=== PATIENT | female | born 1960 | race Caucasian/White ===

== ENCOUNTER 2020-11-11 08:51 | Outpatient (REF) | payer BC, SELFPAY ==
--- NOTE | ~2020-11-11 | MM_ITS ---
EXAMINATION: MM SCREENING DIGITAL BREAST TOMOSYNTHESIS, BILATERAL CLINICAL INFORMATION: Screening. Asymptomatic. The lifetime risk of breast cancer based on the Tyrer-Cuzick Model is 9%. COMPARISON: Mammography: 11/06/2019, 04/23/2019, 10/22/2018, 09/30/2018; targeted left breast ultrasound 10/22/2018, 04/23/2019. TECHNIQUE: Digital breast tomosynthesis is performed in both the craniocaudal and mediolateral oblique views along with computer-aided detection (CAD). Synthesized 2D images are generated from the tomosynthesis. Additional exaggerated left CC view is provided. FINDINGS: There are scattered areas of fibroglandular density (ACR BI-RADS breast composition Category b). Parenchymal pattern is similar to prior exams. There is no significant mass or architectural abnormality or abnormal calcifications. Again, there is stable circumscribed nodule consistent with cyst on ultrasound left breast upper outer quadrant and an intramammary node again seen posterior upper outer right breast. No significant changes. MM/MM tomosynthesis screening BI IMPRESSION: No mammographic evidence of malignancy. ASSESSMENT: BI-RADS 2: Benign RECOMMENDATION: Routine annual mammography screening. This patient's information was entered into a reminder system with a target due date for their next mammogram.
== END 2020-11-11 08:52 | disposition home or self-care (01) ==
LOC: HO.MAMMO 08:51
PROVIDERS: PCP Nurse Practitioner Family; Visit Provider Nurse Practitioner Family
DX: Z12.31 Encounter for screening mammogram for malignant neoplasm of breast (principal)
CPT/HCPCS: 77063; 77067

== ENCOUNTER 2020-11-16 09:35 | Day surgery (SDC) | payer BC, SELFPAY ==
--- NOTE | 2020-11-06 13:28 | HP_ITS ---
DATE OF SERVICE: 11/16/2020 PLANNED DATE OF SURGERY: November 16, 2020. PREOPERATIVE DIAGNOSES: 1. Hammertoe, right second toe. 2. Skin ulcer, right foot. 3. Osteomyelitis distal phalanx, right second toe. 4. Hammertoe, right fourth toe. 5. Hammertoe, right fifth toe. 6. Contracted right 5th metatarsophalangeal joint. PLANNED PROCEDURES: 1. Hammertoe repair, right second toe. 2. Excision of skin ulcer, right foot. 3. Bone biopsy of distal phalanx right second toe. 4. Hammertoe repair, right fourth. 5. Hammertoe repair, right fifth. 6. Extensor tenotomy and capsulotomy of the right 5th metatarsophalangeal joint. PLANNED ANESTHESIA: MAC anesthesia. CHIEF COMPLAINT AND HISTORY OF PRESENT ILLNESS: Marilu Vick is a 60-year-old female, who relates history of chronic nonhealing ulcer on the right second toe involving probable osteomyelitis of the distal phalanx of the right second toe. She also relates progressive hammertoe deformities involving the right fourth and fifth toes. These conditions have been present over the past several years and have been unresponsive to conservative care. The patient is now requesting surgical treatment. PAST MEDICAL HISTORY: Remarkable for reflux esophagitis, GERD, peripheral neuropathy of bilateral feet, arthritis, history of gallbladder disease, history of migraine headaches. CURRENT MEDICATIONS: The patient takes atorvastatin, naproxen, Prilosec, vitamin D. FAMILY HISTORY: Significant for diabetes, arthritis, heart disease, foot problems. SOCIAL HISTORY: The patient denies smoking, denies use of any recreational drugs. The patient does drink coffee, typically 2 cups a day and does relate alcohol consumption. ALLERGIES: THE PATIENT HAS NO KNOWN ALLERGIES OR DRUG SENSITIVITIES. PODIATRIC PHYSICAL EXAM: VASCULAR EXAM: Reveals +1/4 pulses. Bilateral DP and PT arteries with normal cap refill time noted bilateral feet. DERMATOLOGIC EXAM: Reveals an ulcer at the plantar distal aspect of the right second toe measuring 2 mm in diameter x 1 mm in depth on most recent visit of November 01, 2020. NEUROLOGIC EXAM: Reveals diminished sensation of bilateral feet with poor distinguish manner of sharp, dull, light touch or vibratory sensation bilateral feet. ORTHOPEDIC EXAM: Reveals rigid hammertoe contracture of the right 2nd, 4th, and fifth toes as well as dorsal contracture of the right 5th metatarsophalangeal joint. The patient was seen most recently in my office on November 01, 2020. The patient has been instructed of all potential risks and complications and is compliant with surgical treatment for her right foot deformities. Preoperative medical clearance has been provided by Marcelo Quintanilla, [facility]. KEVIN Mayer/JAVIER / [id number]
[2020-11-08 11:25] LABS: MANUAL DIFF FLAG NO
[2020-11-08 11:32] LABS: Basophils Absolute Auto 0.1 X10*3/uL (0.0-0.2); Basophils Percent Auto 1.1 % (0-2); Eosinophils Absolute Auto 0.2 X10*3/uL (0.0-0.4); Eosinophils Percent Auto 2.4 % (0-4); Hematocrit 41.4 % (37-47); Imm Gran Abs Auto 0.02 X10*3/uL (0.00-0.03); Imm Gran Pct Auto 0.3 % (0.0-0.4); Lymphocytes Absolute Auto 2.8 X10*3/uL (1.2-4.9); Lymphocytes Percent Auto 42.1 % (20-40); Mean Corpuscular HGB Conc 33.8 g/dl (31.0-35.0); Mean Corpuscular Volume 85.7 fL (80-98); Mean Platelet Volume 9.6 fL (9.4-12.3); Monocytes Absolute Auto 0.5 X10*3/uL (0.1-1.2); Monocytes Percent Auto 7.7 % (2-11); Neutrophils Absolute Auto 3.1 X10*3/uL (2.0-8.3); Neutrophils Percent Auto 46.4 % (45-73); Platelet Count 419 X10*3/uL (160-400); Red Blood Count 4.83 X10*6/uL (4.20-5.50); Red Cell Distribution Width 12.9 % (11.0-16.0); White Blood Count 6.6 X10*3/uL (4.8-10.8)
[2020-11-08 12:06] LABS: Anion Gap 16 (12-20); Blood Urea Nitrogen 12 mg/dL (9-16); Calcium 9.5 mg/dL (8.4-10.2); Carbon Dioxide 26 mmol/L (22-29); Chloride 102 mmol/L (96-108); Estimated Glomerular Filt Rate > 60; Glucose Fasting 150 mg/dL (60-99); Potassium 4.5 mmol/L (3.3-5.1); Sodium 139 mmol/L (135-145)
[2020-11-08 17:05] LABS: Estimated Average Glucose 163 mg/dL; Hemoglobin A1c % 7.3 %
[2020-11-09 15:15] VITALS: BMI 30.4
[2020-11-16 09:54] VITALS: BP 149/95; PULSE 78; RESP 16; TEMP 36.6; O2SAT 94
--- NOTE | 2020-11-16 10:31 | MHC.SHP ---
Pre-Procedural Eval Section A The patient is an INPATIENT: No Changes since office visit: No Cold of Flu in the past 2 weeks, No New Medical Problems, No Changes in Medication and No Patient answered all questions The History & Physical has been completed within 30 days and I have reviewed it.: Yes Section B Chief Complaint: hammer toe,osteomyelitis,ulcer Allergies: Allergies Allergy/AdvReac Type Severity Reaction Status Date / Time No Known Allergies Allergy Verified 11/09/20 14:43 [No Known Allergies*] Plan Diagnosis/Plan: Unchanged I have reviewed the history and physical and performed a pertinent physical examination on my patient. No changes have occurred unless specified.
--- NOTE | 2020-11-16 10:32 | P.CONAN_ITS ---
[facility] Active Problems Active Problems: All Active Problems (Updated 11/09/20 @ 14:53 by Paola cuevas) GERD (gastroesophageal reflux disease) (Acute) Dyslipidemia (Acute) Acquired hammertoes of both feet (Acute) Peripheral neuropathy (Acute) Pre-op evaluation (Acute) Past Medical History Medical History Acquired hammertoes of both feet Anxiety Arthritis Dyslipidemia GERD (gastroesophageal reflux disease) History of cholelithiasis Hx of osteomyelitis Peripheral neuropathy Pre-op evaluation Family History Family History Father Diabetes mellitus HTN (hypertension) Myocardial infarction Hyperlipidemia Mother Lymphoma Hyperlipidemia Surgical History Surgical History History of ankle surgery History of esophagogastroduodenoscopy (EGD) History of hammertoe correction History of skin ulcer Hx of cholecystectomy Hx of colonoscopy Social History Social History Are you a primary home care liaison to a significant other at home: No Do you presently have visiting nurse or other home services: No Alcohol intake: current Alcohol intake frequency: a few times a month Smoking Status: Former smoker Smoking Quit Date: 1994 Use of substances other than those prescribed or required for medical reasons: No Have you been hit, kicked, punched, or otherwise hurt by someone within the past year? If so, by whom?: No Advance Directives: No Advance Directives Information Provided: No Advance Directives on File: No Recently lost weight without trying: No Meds Allergies Allergy/AdvReac Type Severity Reaction Status Date / Time No Known Allergies Allergy Verified 11/09/20 14:43 [No Known Allergies*] Home Medications Medication Instructions Recorded Confirmed Last Taken Type atorvastatin 10 mg tablet 10 mg PO DAILY 10/30/20 11/09/20 Unknown History cholecalciferol (vitamin D3) 50 50 mcg PO DAILY 10/30/20 11/09/20 Unknown History mcg (2,000 unit) capsule naproxen 500 mg tablet 500 mg PO BID 10/30/20 11/09/20 Unknown History Exam Exam Date and Time: November 16, 2020 1032 Height,Weight and Vital Signs: Height 5 ft 7 in Weight 87.997 kg Last Vital Signs Temp 97.8 F 11/16/20 09:54 Pulse 78 11/16/20 09:54 Resp 16 11/16/20 09:54 BP 149/95 H 11/16/20 09:54 Pulse Ox 94 11/16/20 09:54 Pertinent Lab Results Pertinent Lab Results: Laboratory Tests 11/08/20 11/08/20 11/08/20 07:51 07:51 07:51 WBC 6.6 RBC 4.83 Hgb 14.0 Hct 41.4 MCV 85.7 MCH 29.0 MCHC 33.8 RDW 12.9 Plt Count 419 H MPV 9.6 Immature Gran % (Auto) 0.3 Neut % (Auto) 46.4 Lymph % (Auto) 42.1 H Stafford % (Auto) 7.7 Eos % (Auto) 2.4 Baso % (Auto) 1.1 Lymph # (Auto) 2.8 Stafford # (Auto) 0.5 Eos # (Auto) 0.2 Baso # (Auto) 0.1 Abs Immat Gran (auto) 0.02 Absolute Neuts (auto) 3.1 Absolute Nucleated RBC 0.000 Nucleated RBC % (auto) 0.0 Sodium 139 Potassium 4.5 Chloride 102 Carbon Dioxide 26 Anion Gap 16 BUN 12 Creatinine 0.71 Estim Creat Clear Calc TNP Estimated GFR > 60 Fasting Glucose 150 H Estimat Average Glucose 163 Hemoglobin A1c % 7.3 Calcium 9.5 Airway Mallampati Class: II TM Dist: >3cm Neck ROM: Full Loose/Missing/Broken Teeth: No Heart: RRR Lungs: CTA Assessment and Plan Assessment Anesthesia Assessment: Anesthesia Plan Discussed and Chart Reviewed Final Anesthetic Review NPO: Yes ASA Class: II Final Preanesthetic Review: Meds/Allgs Chart Reviewed, Consent Obtained/Reviewed and Anes Risks/Benef Reviewed Patient Risk: Low Procedure Risk: Low Anesthetic Plan Anesthetic Plan: MAC: Disposition: Standard PACU
[2020-11-16 11:45] VITALS: BP 126/66; PULSE 71; RESP 18; TEMP 36.4; O2SAT 95
--- NOTE | 2020-11-16 11:49 | PM.PROC ---
Brief Operative Note Date of procedure: 11/16/20 Pre-op diagnosis: hammertoe deformities right 2,4 and 5; contracture right 5th mtpj; OM/ulcer Post-op diagnosis: same Procedure: hammertoe correction right 2,4 and 5th toes; extensor tenotomy and capsulotomy right 5th mtpj; excision of skin ulcer right foot; bone biopsy for osteomyelitis right 2nd toe distal and middle phalanges; complex wound closure over exposed tendon and bone right foot Anesthesia: MAC Surgeon: Igor Barnes Painter Structural Steel: Lona Canas Estimated blood loss (mL): 1.0 Condition: stable Disposition: PACU
[2020-11-16 12:00] VITALS: PULSE 71; RESP 17; TEMP 36.4; O2SAT 97
--- NOTE | 2020-11-16 12:52 | OP_ITS ---
SURGEON: Igor Barnes DPM PREOPERATIVE DIAGNOSIS: POSTOPERATIVE DIAGNOSIS: PROCEDURE PERFORMED: ESTIMATED BLOOD LOSS: COMPLICATIONS: ANESTHESIA: Consisted of local administration of a total of 9 mL of an equal mix of 2% lidocaine with epinephrine 1:100,000 and 0.5% Marcaine plain. Intravenous sedation was provided by the anesthesia department. ANESTHESIOLOGIST: Dr. Anti.Dr. Bautista. ASSISTANTS: Dr. Canas. SPECIMENS: PREOPERATIVE DIAGNOSES: 1. Hammertoe, right second toe. 2. Skin ulcer, right second toe. 3. Osteomyelitis distal phalanx, right second toe. 4. Hammertoe, right fourth toe. 5. Hammertoe, right fifth toe. 6. Contracture of the right 5th metatarsophalangeal joint. POSTOPERATIVE DIAGNOSES: 1. Hammertoe, right second toe. 2. Skin ulcer, right second toe. 3. Osteomyelitis distal phalanx, right second toe. 4. Hammertoe, right fourth toe. 5. Hammertoe, right fifth toe. 6. Contracture of the right 5th metatarsophalangeal joint. PROCEDURES PERFORMED: 1. Hammertoe repair, right second toe. 2. Excision of skin ulcer, right foot with complex wound closure overlying exposed tendon and bone. 3. Bone biopsy of osteomyelitis, right foot. 4. Hammertoe repair, right fourth toe with 0.045-inch K-wire fixation. 5. Hammertoe repair, right fifth toe. 6. Extensor tenotomy and capsulotomy of the right 5th metatarsophalangeal joint. INTRODUCTION: The patient was brought to the operating room, placed on the operating table in supine position. After having been suitably anesthetized with local infiltrative anesthesia, the right lower extremity was then prepped and draped in the usual sterile manner. Please note that prior to the start of the procedures, the right foot was exsanguinated utilizing Esmarch bandage and right ankle tourniquet was inflated to 250 mmHg pressure for the duration of the procedures. HAMMERTOE REPAIR, RIGHT SECOND TOE. Attention was directed to the dorsum of the right second toe, where a dorsal linear incision approximately 2.5 cm in length was effected and centered over the dorsum of the right second toe PIP joint. The incision was deepened in same plane and hemostasis was acquired as necessary. The skin margins were underscored and retracted. A transverse incision was effected through the extensor tendon complex at the level of the PIP joint. The extensor tendon was underscored and retracted. The hypertrophic head of the proximal phalanx was delivered from the wound and then excised utilizing sagittal saw. The wound was irrigated. The extensor tendon was caught to maintain utilizing 3-0 Vicryl. Skin margins were closed with 4-0 nylon. HAMMERTOE REPAIR, RIGHT FOURTH AND FIFTH TOES. Attention was now directed to the dorsum of the right fourth and fifth toes, where the exact same procedure was performed in the exact same manner, it was described for the right second toe with the exception that a 0.045-inch K-wire was driven through the midline of the phalanges of the 4th toe that were maintained rectus position. EXTENSOR TENOTOMIES AND DORSAL CAPSULOTOMY OF THE RIGHT 5TH METATARSOPHALANGEAL JOINT. Attention now directed to the dorsum of the right 5th metatarsophalangeal joint, where an incision approximately 2 to 2.5 cm in length was effected, centered over the dorsum of the right 5th metatarsophalangeal joint. Incision was deepened in the same plane and hemostasis was acquired as necessary. The skin margins were underscored and retracted. A transverse incision was effected through the extensor longus brevis tendons as well as the dorsal, medial, and lateral aspect of the 5th metatarsophalangeal joint. The wound was irrigated with copious amounts of sterile saline. The skin margins were then closed with 4-0 nylon. EXCISION OF SKIN ULCER ALONG WITH BONE BIOPSY AND COMPLEX WOUND CLOSURE OVERLYING EXPOSED TENDON AND BONE FOR PLANTAR AND DISTAL OF RIGHT SECOND TOE. Attention was directed to dystrophic ulcerated skin and nail tissue at the distal aspect of the right second toe, where a transverse incision was effected at the level of the distal interphalangeal joint with a converging elliptical incision placed to create a plantar skin flap and excised the dystrophic ulcerated skin entirely. The incisions were deepened in the same plane and the skin and bone were excised from the wound in toto. Please note that there was found to be pathologic changes to both the distal phalanx and head of the middle phalanx. Utilizing bone cutting forceps and also sagittal saw, the dystrophic bone was removed and then dissected free and sent for bone biopsy to pathology. The wound was irrigated with copious amounts of sterile saline. A small section more of additional middle phalanx was resected to allow proper closure of the skin flap overlying the exposed tendon and bone. The wound was irrigated. There was no thomas purulence or no thomas infection noted. The only thing that was noted was the chronic osteomyelitic changes of the middle and distal phalanges. The skin margins were then caught to maintain utilizing a combination of 3-0 nylon and 4-0 nylon with complex wound closure overlying the exposed tendon and bone. CONCLUSION: At the inclusion of these procedures, the operative sites were injected with a total of 5 mL of Marcaine 0.5% plain and 1 mL of dexamethasone phosphate. Sterile Conform and gauze and Betadine-soaked gauze dressing as well as Kerlix fluffs were applied to the right lower extremity. The tourniquet was deflated. Normal blood flow was reestablished to the right lower extremity. FINAL DISPOSITION: The patient is discharged home with instructions for self-care and include the followin. To keep the dressings dry, clean, and intact. 2. To keep the right leg elevated with ice above the ankle. 3. To take all medications as prescribed. 4. To limit activity to minimum. 5. To always use surgical shoe and walker or crutches when ambulating. 6. To contact Dr. Barnes if any questions or problems arise. 7. The patient has already prescriptions for Augmentin 500 mg 1 p.o. t.i.d. p.c., Motrin 800 mg sig 1 p.o. t.i.d. p.c. as needed for pain, and gabapentin 400 mg 1 p.o. daily at bedtime. KEVIN Mayer/JAVIER / [id number]
== END 2020-11-16 12:30 | disposition home or self-care (01) ==
PROVIDERS: Absent Provider Internal Medicine; PCP Nurse Practitioner Family; Visit Provider Podiatrist
PROC: (CPT 28285; principal; 2020-11-16 11:00)
DX: M20.41 Other hammer toe(s) (acquired), right foot (principal); L97.511 Non-pressure chronic ulcer of other part of right foot limited to breakdown of skin; M86.9 Osteomyelitis, unspecified; I10 Essential (primary) hypertension; G62.9 Polyneuropathy, unspecified; L85.9 Epidermal thickening, unspecified; M24.574 Contracture, right foot
CPT/HCPCS: 28285 ×3; 11042; 12041; 36415; 80048; 83036; 85025; 88304; 88305; 88311; J0690; J1100; J2250; J3010

== ENCOUNTER 2021-04-21 07:50 | Outpatient (REF) | payer BC, SELFPAY ==
[2021-04-21 11:24] LABS: MANUAL DIFF FLAG NO
[2021-04-21 11:35] LABS: Basophils Absolute Auto 0.1 X10*3/uL (0.0-0.2); Eosinophils Absolute Auto 0.1 X10*3/uL (0.0-0.4); Eosinophils Percent Auto 2.1 % (0-4); Hematocrit 40.3 % (37-47); Hemoglobin 13.7 g/dl (12.0-16.0); Imm Gran Abs Auto 0.01 X10*3/uL (0.00-0.03); Imm Gran Pct Auto 0.2 % (0.0-0.4); Lymphocytes Absolute Auto 2.5 X10*3/uL (1.2-4.9); Lymphocytes Percent Auto 40.2 % (20-40); Mean Corpuscular Volume 85.4 fL (80-98); Mean Platelet Volume 9.8 fL (9.4-12.3); Monocytes Absolute Auto 0.5 X10*3/uL (0.1-1.2); Monocytes Percent Auto 7.8 % (2-11); Neutrophils Percent Auto 48.7 % (45-73); Platelet Count 395 X10*3/uL (160-400); Red Blood Count 4.72 X10*6/uL (4.20-5.50); Red Cell Distribution Width 12.7 % (11.0-16.0); White Blood Count 6.2 X10*3/uL (4.8-10.8)
[2021-04-21 11:39] LABS: Glucose Urine UA NEG (NEG); Leukocyte Esterase Urine TRACE (NEG); Nitrite Urine NEG (NEG); UACC Culture Trigger YES; Urine Blood NEG (NEG); Urine Ketones NEG (NEG); Urine Protein NEG (NEG-TRACE)
[2021-04-21 11:44] LABS: Appearance Urine CLEAR; Color Urine YELLOW
[2021-04-21 12:06] LABS: Bacteria Urine TRACE /LPF; RBC Urine 0-2 /HPF (0); Squamous Epithelial Cell Urine 2+ /LPF
[2021-04-21 12:07] LABS: Mucus Urine TRACE /LPF
[2021-04-21 12:09] LABS: Alanine Aminotransferase 66 U/L (0-31); Albumin Level 4.4 g/dL (3.5-5.0); Alkaline Phosphatase 78 U/L (39-117); Anion Gap 17 (12-20); Aspartate Amino Transferase 45 U/L (5-31); Bilirubin Total 0.9 mg/dL (0.0-1.0); Blood Urea Nitrogen 12 mg/dL (9-16); Carbon Dioxide 24 mmol/L (22-29); Chloride 103 mmol/L (96-108); Cholesterol 163 mg/dL; Estimated Glomerular Filt Rate > 60; Glucose Fasting 169 mg/dL (60-99); HDL Cholesterol 35 mg/dL; LDL Cholesterol Calculated 90 mg/dl; Potassium 4.6 mmol/L (3.3-5.1); Sodium 139 mmol/L (135-145); Total Protein 7.7 g/dL (6.5-8.0); Triglycerides 193 mg/dL
[2021-04-21 12:32] LABS: TSH reflex Free T4 2.09 uIU/mL (0.32-4.0)
== END 2021-04-21 07:51 | disposition home or self-care (01) ==
LOC: HO.HMGCLDS 07:50
PROVIDERS: PCP Nurse Practitioner Family; Visit Provider Nurse Practitioner Family
DX: Z00.00 Encounter for general adult medical examination without abnormal findings (principal)
CPT/HCPCS: 36415; 80053; 80061; 81001; 84443; 85025; 87086

== ENCOUNTER 2021-05-03 08:31 | Outpatient (REF) | payer BC, SELFPAY ==
--- NOTE | ~2021-05-03 | US_ITS ---
EXAMINATION: US ABDOMEN COMPLETE CLINICAL INFORMATION: Abnormal levels of other serum enzymes. COMPARISON: CT abdomen and pelvis with intravenous contrast only dated 02/09/2017. Ultrasound abdomen complete dated 10/16/2006. TECHNIQUE: Real-time imaging of the abdominal viscera. FINDINGS: PANCREAS: Largely obscured by overlapping bowel gas. ABDOMINAL AORTA: The proximal, mid, and distal segments are normal in caliber. INFERIOR VENA CAVA: Visualized portions are normal. LIVER: There is diffuse increased liver parenchymal echogenicity. No focal hepatic mass is seen. The liver is normal in size and contour. No biliary ductal dilatation. GALLBLADDER: Surgically absent. COMMON BILE DUCT: Normal in caliber measuring 0.5 cm in diameter. RIGHT KIDNEY: Normal. No hydronephrosis. No renal calculi or focal parenchymal lesions. The kidney measures 11.7 cm in maximum dimension. LEFT KIDNEY: Normal. No hydronephrosis. No renal calculi or focal parenchymal lesions. The kidney measures 11.1 cm in maximum dimension. SPLEEN: Normal. The spleen measures 10.6 cm in maximum dimension. FREE FLUID: None. US/US abdomen complete IMPRESSION: 1. There is generalized increase in hepatic echotexture, consistent with fatty infiltration or hepatocellular disease. Please correlate clinically. No focal hepatic mass or intrahepatic biliary dilatation is seen. 2. The gallbladder is surgically absent. 3. Technically limited ultrasound examination of the pancreas.
== END 2021-05-03 08:32 | disposition home or self-care (01) ==
LOC: HO.HMGCX 08:31
PROVIDERS: PCP Nurse Practitioner Family; Visit Provider Nurse Practitioner Family
DX: R74.8 Abnormal levels of other serum enzymes (principal)
CPT/HCPCS: 76700

== ENCOUNTER 2021-05-12 07:21 | Outpatient (REF) | payer BC, SELFPAY ==
[2021-05-12 11:01] LABS: MANUAL DIFF FLAG NO
[2021-05-12 11:08] LABS: Basophils Absolute Auto 0.1 X10*3/uL (0.0-0.2); Basophils Percent Auto 0.8 % (0-2); Eosinophils Absolute Auto 0.3 X10*3/uL (0.0-0.4); Eosinophils Percent Auto 3.5 % (0-4); Hematocrit 43.2 % (37-47); Hemoglobin 14.3 g/dl (12.0-16.0); Imm Gran Abs Auto 0.02 X10*3/uL (0.00-0.03); Imm Gran Pct Auto 0.3 % (0.0-0.4); Lymphocytes Absolute Auto 1.3 X10*3/uL (1.2-4.9); Lymphocytes Percent Auto 16.8 % (20-40); Mean Corpuscular HGB Conc 33.1 g/dl (31.0-35.0); Mean Corpuscular Hemoglobin 28.4 pg (27.0-33.0); Mean Corpuscular Volume 85.7 fL (80-98); Mean Platelet Volume 9.5 fL (9.4-12.3); Monocytes Absolute Auto 0.7 X10*3/uL (0.1-1.2); Monocytes Percent Auto 8.8 % (2-11); Neutrophils Absolute Auto 5.4 X10*3/uL (2.0-8.3); Neutrophils Percent Auto 69.8 % (45-73); Platelet Count 345 X10*3/uL (160-400); Red Blood Count 5.04 X10*6/uL (4.20-5.50); Red Cell Distribution Width 12.7 % (11.0-16.0); White Blood Count 7.7 X10*3/uL (4.8-10.8)
[2021-05-12 11:12] LABS: Glucose Urine UA NEG (NEG); Leukocyte Esterase Urine 1+ (NEG); Nitrite Urine NEG (NEG); PH 5.5 (5.0-8.0); Specific Gravity - Urine >= 1.030 (1.005-1.025); UACC Culture Trigger YES; Urine Blood NEG (NEG); Urine Ketones NEG (NEG); Urine Protein NEG (NEG-TRACE)
[2021-05-12 11:14] LABS: Estimated Average Glucose 166 mg/dL; Hemoglobin A1c % 7.4 %
[2021-05-12 11:15] LABS: Appearance Urine CLOUDY; Color Urine YELLOW
[2021-05-12 11:25] LABS: Bacteria Urine TRACE /LPF; Mucus Urine 1+ /LPF; Squamous Epithelial Cell Urine 4+ /LPF
[2021-05-12 11:27] LABS: Alanine Aminotransferase 46 U/L (0-31); Albumin Level 4.3 g/dL (3.5-5.0); Alkaline Phosphatase 86 U/L (39-117); Anion Gap 17 (12-20); Aspartate Amino Transferase 36 U/L (5-31); Bilirubin Total 0.6 mg/dL (0.0-1.0); Blood Urea Nitrogen 9 mg/dL (9-16); Calcium 9.3 mg/dL (8.4-10.2); Carbon Dioxide 20 mmol/L (22-29); Chloride 107 mmol/L (96-108); Estimated Glomerular Filt Rate > 60; Glucose Random 186 mg/dL (60-115); Potassium 4.5 mmol/L (3.3-5.1); Sodium 139 mmol/L (135-145); Total Protein 7.8 g/dL (6.5-8.0)
[2021-05-14 07:49] LABS: HBS Num1 0.07 mIU/mL (0-7.99); HBsAGNum1 0.22 S/CO (0.00-0.99); Hepatitis B Core Antibody Nonreactive (Nonreactive); Hepatitis B Surface Antigen Negative (Negative); ~HepC Num1 0.11 S/CO (0.00-0.79); ~Hepatitis B Surface Antibody NONREACTIVE (Nonreactive); ~Hepatitis C Antibody Nonreactive (Nonreactive)
[2021-05-16 08:37] LABS: Hepatitis A Antibody IgM 0.21 Index (0-0.79); ~Hepatitis A Antibody IgM Nonreactive (Nonreactive)
== END 2021-05-12 07:22 | disposition home or self-care (01) ==
LOC: HO.HMGCLDS 07:21
PROVIDERS: PCP Nurse Practitioner Family; Visit Provider Nurse Practitioner Family
DX: Z01.818 Encounter for other preprocedural examination (principal); R74.8 Abnormal levels of other serum enzymes
CPT/HCPCS: 36415; 80053; 81001; 83036; 85025; 86704; 86706; 86709; 86803; 87086; 87340

== ENCOUNTER 2021-06-28 06:40 | Day surgery (SDC) | payer BC, SELFPAY ==
--- NOTE | 2021-05-09 13:56 | HP_ITS ---
DATE OF SERVICE: 05/17/2021 DATE OF PROPOSED SURGERY: May 17, 2021. PREOPERATIVE DIAGNOSES: 1. Hammertoe, left fourth toe. 2. Hammertoe, left fifth toe. 3. Chronic nonhealing skin ulcer, left fourth toe. 4. Osteomyelitis of distal phalanx, left fourth toe. 5. Contracture of the left fifth metatarsophalangeal joint. PLANNED PROCEDURES: 1. Hammertoe repair, left fourth toe. 2. Hammertoe repair, left fifth toe. 3. Excision of skin ulcer, left fourth toe. 4. Bone biopsy, left fourth toe distal phalanx. 5. Extensor tenotomy and capsulotomy, left fifth metatarsophalangeal joint. PLANNED ANESTHESIA: MAC anesthesia. CHIEF COMPLAINT AND HISTORY OF PRESENT ILLNESS: Marilu Vick is a 60-year-old female, relating history of achy, stiff, tender, painful left fourth and fifth toes, present over the past several months duration. She also has a chronic nonhealing skin ulcer of the left fourth toe, which has been present over the past few years. Her condition has progressively worsened. Conservative treatments consisting of altered shoe gear, wound care, periodic antibiotics as well as accommodative padding have all proven ineffective and the patient is now requesting surgical treatment. PAST MEDICAL HISTORY: Remarkable for high cholesterol, history of GERD, and peripheral neuropathy of both feet, as well as history of migraine headaches, arthritis. CURRENT MEDICATIONS: The patient takes alpha lipoic acid, Prilosec 20 mg, and vitamin D3. ALLERGIES: THE PATIENT HAS NO KNOWN ALLERGIES OR DRUG SENSITIVITIES. FAMILY HISTORY: Significant for diabetes, hypertension, heart disease, arthritis. SOCIAL HISTORY: The patient denies smoking, denies use of caffeine, denies use of any recreational drugs, and relates social alcohol consumption. PODIATRIC PHYSICAL EXAM: VASCULAR EXAM: Reveals +1/4 pulses, DP and PT arteries bilateral with normal capillary refill time noted in bilateral feet. DERMATOLOGIC EXAM: Reveals an ulcer through the subcutaneous into the fat layer of the plantar aspect of the left fourth toe, measuring 9 mm x 4 mm x 2 mm in depth. Otherwise, the skin is intact in bilateral feet. NEUROLOGIC EXAM: Reveals diminished sensation of bilateral feet. ORTHOPEDIC EXAM: Reveals rigid hammertoe contracture of the left fourth and fifth toes. The patient was seen most recently in my office on May 07, 2021. Preoperative informed consent was obtained from the patient that day for her planned left foot surgery. Preoperative medical clearance will be provided by her primary care, Marcelo Quintanilla at [facility]. KEVIN Mayer/JAVIER / [id number]
[2021-05-11 12:52] VITALS: BMI 31.9
[2021-05-11 12:54] VITALS: BMI 31.9
--- NOTE | 2021-05-16 12:35 | HO.ANESPROP2 ---
HPI - Anesthesia Eval Consult details Narrative: Rescheduled to 06/28/21 60yo F for Left 4th & 5th Toe Hammertoe Repair, Excision of 4th toe Skin Ulcer, 4th Toe Bone Biopsy, Extensor Tenotomy & Capsulotomy 5th Metatarsal Joint PCP cleared s/p hammertoe repair 11/2020 with MAC [facility] Active Problems Active Problems: All Active Problems (Updated 05/11/21 @ 12:58 by Daily Guzman RN) Pre-op evaluation (Acute) Elevated liver enzymes (Acute) Newly diagnosed diabetes (Acute) GERD (gastroesophageal reflux disease) (Acute) Dyslipidemia (Acute) Acquired hammertoes of both feet (Acute) Peripheral neuropathy (Acute) Past Medical History Medical History (Updated 05/11/21 @ 12:58 by Daily Guzman RN) Acquired hammertoes of both feet Anxiety Arthritis COVID-19 vaccine series completed Diabetes Dyslipidemia GERD (gastroesophageal reflux disease) History of cholelithiasis Hx of osteomyelitis Peripheral neuropathy Family History Family History Father Diabetes mellitus HTN (hypertension) Myocardial infarction Hyperlipidemia Mother Lymphoma Hyperlipidemia Surgical History Surgical History (Updated 05/11/21 @ 12:52 by Daily Guzman RN) History of ankle surgery History of esophagogastroduodenoscopy (EGD) History of hammertoe correction History of skin ulcer Hx of cholecystectomy Hx of colonoscopy Hx of foot surgery Social History Social History (Updated 05/11/21 @ 12:29 by Daily Guzman RN) Household Members: [facility] Are you a primary medicare biller to a significant other at home: No Do you presently have visiting nurse or other home services: No Alcohol intake: current Alcohol intake frequency: a few times a month Patient Tobacco Use Status: Former Tobacco user Quit Date: 1994 Tobacco use type: Cigarette Advance Directives Date on File: 02/10/17 Current occupational status: employed Current occupation: [employer] Current occupational exposures/hazards: No Meds Allergies Allergy/AdvReac Type Severity Reaction Status Date / Time No Known Allergies Allergy Verified 05/08/21 11:46 [No Known Allergies*] Home Medications Medication Instructions Recorded Confirmed Last Taken Type cholecalciferol (vitamin D3) 50 50 mcg PO DAILY 10/30/20 05/11/21 Unknown History mcg (2,000 unit) capsule naproxen 500 mg tablet 500 mg PO BID PRN 10/30/20 05/11/21 Unknown History gabapentin 400 mg capsule 400 mg PO BEDTIME 05/11/21 05/11/21 Unknown History Exam Exam Date and Time: May 16, 2021 1235 Height,Weight and Vital Signs: Height 5 ft 7 in Weight 92.533 kg Pertinent Lab Results Pertinent Lab Results: Laboratory Tests 05/12/21 05/12/21 07:30 07:30 WBC 7.7 Hgb 14.3 Hct 43.2 Plt Count 345 Sodium 139 Potassium 4.5 Chloride 107 Carbon Dioxide 20 L BUN 9 Creatinine 0.72 Narrative Narrative: EKG 04/2021 NSR @ 78 Septal infarct Inferior infarct No changes from 2 previous EKG Assessment and Plan Assessment Anesthesia Assessment: Chart Reviewed
--- NOTE | 2021-06-19 13:34 | HP_ITS ---
DATE OF SERVICE: 06/28/2021 DATE OF PROPOSED SURGERY: June 28, 2021. PREOPERATIVE DIAGNOSES: 1. Hammertoe, left 4th toe. 2. Hammertoe, left 5th toe. 3. Chronic skin ulcer, left 4th toe. 4. Osteomyelitis of distal phalanx, left fourth toe. 5. Extensor contracture of the left 5th metatarsophalangeal joint. PLANNED PROCEDURES: 1. Hammertoe repair, left fourth toe. 2. Hammertoe repair, left 5th toe. 3. Excision of skin ulcer, left fourth toe. 4. Bone biopsy, left fourth toe distal phalanx. 5. Extensor tenotomy and capsulotomy of left 5th metatarsophalangeal joint. PLANNED ANESTHESIA: MAC anesthesia. CHIEF COMPLAINT AND HISTORY OF PRESENT ILLNESS: Marilu Vick is a 60-year-old female, who relates history of painful arthritic hammertoes of left fourth and fifth toe with contracture of left 5th toe metatarsophalangeal joint and chronic nonhealing skin ulcer at the plantar aspect of the left 4th toe involving the distal phalanx. Conservative care consisting of altered shoe gear as well as accommodative padding and wound care has been ineffective in healing the condition and the patient is now requesting surgical treatment. PAST MEDICAL HISTORY: Remarkable for anxiety, arthritis, diabetes, GERD, peripheral neuropathy, migraine headaches. CURRENT MEDICATIONS: , doxycycline, lisinopril, Prilosec, gabapentin. ALLERGIES: THE PATIENT HAS NO KNOWN ALLERGIES OR DRUG SENSITIVITIES. FAMILY HISTORY: Significant for arthritis, diabetes, hypertension, heart disease. SOCIAL HISTORY: The patient denies smoking, denies alcohol, denies use of caffeine, and denies use of any recreational drugs. PODIATRIC PHYSICAL EXAMINATION: VASCULAR EXAM: The patient displays +1/4 pulses. DP and PT arteries bilateral with normal capillary refill time noted bilateral feet. DERMATOLOGIC: Reveals a skin ulcer plantar aspect of the left 4th toe measuring 2 mm in diameter x 1 mm in depth. NEUROLOGIC EXAM: Reveals reduced reduced vibratory sensation and monofilament testing bilateral feet. ORTHOPEDIC EXAM: Reveals rigid hammertoe contracture of left fourth and fifth toes and also dorsal contracture of the left 5th metatarsophalangeal joint. The patient was seen most recently in my office on June 06, 2021. Preoperative informed consent was obtained from the patient that day for the planned left foot surgery. Preoperative medical clearance has been provided by the patient's primary care physician, Marcelo Quintanilla. KEVIN Mayer / [id number]
--- NOTE | 2021-06-27 09:20 | HO.ANESPROP2 ---
Documented by User: Caitlin Alvarez NP 06/27/21 09:22 HPI - Anesthesia Eval Consult details Narrative: 60yo F for Left 4th & 5th Toe Hammertoe Repair, Excision of 4th toe Skin Ulcer, 4th Toe Bone Biopsy, Extensor Tenotomy & Capsulotomy 5th Metatarsal Joint s/p Right side 11/2020 with MAC PCP cleared PMFSH Active Problems Active Problems: All Active Problems (Updated 05/11/21 @ 12:58 by Daily Guzman RN) Pre-op evaluation (Acute) Elevated liver enzymes (Acute) Newly diagnosed diabetes (Acute) GERD (gastroesophageal reflux disease) (Acute) Dyslipidemia (Acute) Acquired hammertoes of both feet (Acute) Peripheral neuropathy (Acute) Past Medical History Medical History Acquired hammertoes of both feet Anxiety Arthritis COVID-19 vaccine series completed Diabetes Dyslipidemia GERD (gastroesophageal reflux disease) History of cholelithiasis Hx of osteomyelitis Peripheral neuropathy Family History Family History Father Diabetes mellitus HTN (hypertension) Myocardial infarction Hyperlipidemia Mother Lymphoma Hyperlipidemia Surgical History Surgical History History of ankle surgery History of esophagogastroduodenoscopy (EGD) History of hammertoe correction History of skin ulcer Hx of cholecystectomy Hx of colonoscopy Hx of foot surgery Social History Social History Household Members: [facility] Are you a primary menagerie caretaker to a significant other at home: No Do you presently have visiting nurse or other home services: No Alcohol intake: current Alcohol intake frequency: a few times a month Patient Tobacco Use Status: Former Tobacco user Quit Date: 1994 Tobacco use type: Cigarette Use of substances other than those prescribed or required for medical reasons: No Have you been hit, kicked, punched, or otherwise hurt by someone within the past year? If so, by whom?: No Are you DNR?: No Advance Directives: Yes (daughter-HCP form 01/2017 in [employer] printed) Advance Directives Information Provided: Yes Advance Directives on File: Yes Advance Directives Date on File: 02/10/17 Recently lost weight without trying: No Eating poorly because of decreased appetite: No Nutrition Risks: No Nutritional Risk Current occupational status: employed Current occupation: [employer] Current occupational exposures/hazards: No Meds Allergies Allergy/AdvReac Type Severity Reaction Status Date / Time No Known Allergies Allergy Verified 06/28/21 06:44 [No Known Allergies*] Home Medications Medication Instructions Recorded Confirmed Last Taken Type cholecalciferol (vitamin D3) 50 50 mcg PO DAILY 10/30/20 05/11/21 Unknown History mcg (2,000 unit) capsule naproxen 500 mg tablet 500 mg PO BID PRN 10/30/20 05/11/21 Unknown History gabapentin 400 mg capsule 400 mg PO BEDTIME 05/11/21 05/11/21 Unknown History Exam Exam Date and Time: June 27, 202120 Height,Weight and Vital Signs: Height 5 ft 7 in Weight 92.533 kg Pertinent Lab Results Pertinent Lab Results: Laboratory Tests 05/12/21 05/12/21 07:30 07:30 WBC 7.7 Hgb 14.3 Hct 43.2 Plt Count 345 Sodium 139 Potassium 4.5 Chloride 107 Carbon Dioxide 20 L BUN 9 Creatinine 0.72 Assessment and Plan Assessment Anesthesia Assessment: Chart Reviewed Documented by User: Louann Dorado MD 06/28/21 07:29 [facility] Past Medical History Medical History Acquired hammertoes of both feet Anxiety Arthritis COVID-19 vaccine series completed Diabetes Dyslipidemia GERD (gastroesophageal reflux disease) History of cholelithiasis Hx of osteomyelitis Peripheral neuropathy Functional capacity: independent ambulation Patient : No Family History Family History Father Diabetes mellitus HTN (hypertension) Myocardial infarction Hyperlipidemia Mother Lymphoma Hyperlipidemia Family history of problems with anesthesia: No Surgical History Surgical History History of ankle surgery History of esophagogastroduodenoscopy (EGD) History of hammertoe correction History of skin ulcer Hx of cholecystectomy Hx of colonoscopy Hx of foot surgery History of Problems with Anesthesia: No Social History Social History Household Members: Spouse [facility]: [facility] Are you a primary menagerie caretaker to a significant other at home: No Do you presently have visiting nurse or other home services: No Alcohol intake: current Alcohol intake frequency: a few times a month Patient Tobacco Use Status: Former Tobacco user Quit Date: 1994 Tobacco use type: Cigarette Use of substances other than those prescribed or required for medical reasons: No Have you been hit, kicked, punched, or otherwise hurt by someone within the past year? If so, by whom?: No Are you DNR?: No Advance Directives: Yes (daughter-HCP form 01/2017 in [employer] printed) Advance Directives Information Provided: Yes Advance Directives on File: Yes Advance Directives Date on File: 02/10/17 Recently lost weight without trying: No Eating poorly because of decreased appetite: No Nutrition Risks: No Nutritional Risk Current occupational status: employed Current occupation: [employer] Current occupational exposures/hazards: No Meds Allergies Allergy/AdvReac Type Severity Reaction Status Date / Time No Known Allergies Allergy Verified 06/28/21 06:44 [No Known Allergies*] Home Medications Medication Instructions Recorded Confirmed Last Taken Type cholecalciferol (vitamin D3) 50 50 mcg PO DAILY 10/30/20 05/11/21 Unknown History mcg (2,000 unit) capsule naproxen 500 mg tablet 500 mg PO BID PRN 10/30/20 05/11/21 Unknown History gabapentin 400 mg capsule 400 mg PO BEDTIME 05/11/21 05/11/21 Unknown History Exam Airway TM Dist: >3cm Neck ROM: Full Heart: RRar Lungs: CTA Assessment and Plan Final Anesthetic Review Family History of Problems with Anesthesia: No History of Problems with Anesthesia: No
[2021-06-28 06:58] LABS: Glucose, Whole Blood 147 mg/dL (60-115)
[2021-06-28 06:59] VITALS: BP 124/74; PULSE 74; RESP 16; TEMP 36.2; O2SAT 96
[2021-06-28] MEDS: Lactated Ringers 1,000 ML 100 ML IVCONT (07:18)
--- NOTE | 2021-06-28 07:31 | MHC.SHP ---
Pre-Procedural Eval Section A Date of Service: 06/28/21 Section B Chief Complaint: Hammer toes Details of Present Illness: pain and non-helaing ulcer and bone infection left toes Relevant Family History (Specify if Yes): No Relevant Social History: None Allergies: Allergies Allergy/AdvReac Type Severity Reaction Status Date / Time No Known Allergies Allergy Verified 06/28/21 06:44 [No Known Allergies*] Plan Diagnosis/Plan: Unchanged I have reviewed the history and physical and performed a pertinent physical examination on my patient. No changes have occurred unless specified.
--- NOTE | 2021-06-28 08:23 | PM.PROC ---
Brief Operative Note Date of procedure: 06/28/21 Pre-op diagnosis: hammertoe left 4,5; contracture left 5th mtpj, OM left 4 toe, ulcer left 4 Post-op diagnosis: same Procedure: hammertoe repair left 4,5th toes; excision of skin ulcer left 4th; bone biopsy left 4th toe distal phalanx; extensor tenotomy and capsulotomy left 5th mtpj Anesthesia: MAC Surgeon: Igor Barnes Chief Dispatcher Service: Lona Canas Estimated blood loss (mL): 1.0 Condition: stable Disposition: PACU
[2021-06-28 08:30] VITALS: BP 91/52; PULSE 84; RESP 16; TEMP 36.5; O2SAT 94
[2021-06-28 08:35] VITALS: BP 95/54; PULSE 77; RESP 16; O2SAT 95
[2021-06-28 08:40] VITALS: BP 101/52; PULSE 74; RESP 16; O2SAT 94
[2021-06-28 08:45] VITALS: BP 108/59; PULSE 74; RESP 18; O2SAT 92
[2021-06-28 09:00] VITALS: BP 115/64; PULSE 70; RESP 18; TEMP 36.4; O2SAT 94
--- NOTE | 2021-06-28 09:36 | HO.POSTANES ---
Post Anesthesia Evaluation Post Anesthesia Evaluation Vital Signs: Vital Signs Temp Pulse Resp BP Pulse Ox 06/28/21 09:00 97.6 F 70 18 115/64 94 06/28/21 08:45 74 18 108/59 L 92 06/28/21 08:40 74 16 101/52 L 94 06/28/21 08:35 77 16 95/54 L 95 06/28/21 08:30 97.7 F 84 16 91/52 L 94 06/28/21 06:59 97.2 F 74 16 124/74 96 Anesthesia: Monitored Mental Status: Awake Pain Control: Satisfactory Hydration: Adequate Anesthesia-Related Issues: No Anes. Related Issues
--- NOTE | 2021-06-28 10:15 | OP_ITS ---
SURGEON: Igor Barnes DPM PREOPERATIVE DIAGNOSIS: POSTOPERATIVE DIAGNOSIS: PROCEDURE PERFORMED: ESTIMATED BLOOD LOSS: COMPLICATIONS: ANESTHESIA: Consisted of local administration of a total of 8 mL of an equal mix of 2% lidocaine with epinephrine 1:100,000 and 0.5% Marcaine plain. Intravenous sedation was provided by the anesthesia department. ASSISTANTS: Dr. Canas. SPECIMENS: PREOPERATIVE DIAGNOSES: 1. Hammertoe, left fourth toe. 2. Hammertoe, left fifth toe. 3. Chronic skin ulcer, distal left fourth toe. 4. Osteomyelitis of the distal phalanx, left fourth toe. 5. Contracture of the left fifth metatarsophalangeal joint. POSTOPERATIVE DIAGNOSES: 1. Hammertoe, left fourth toe. 2. Hammertoe, left fifth toe. 3. Chronic skin ulcer, distal left fourth toe. 4. Osteomyelitis of the distal phalanx, left fourth toe. 5. Contracture of the left fifth metatarsophalangeal joint. PROCEDURES PERFORMED: 1. Hammertoe repair, left fourth toe. 2. Hammertoe repair, left fifth toe. 3. Excision of skin ulcer, left fourth toe measuring 2.1 cm in diameter. 4. Bone biopsy, left fourth toe distal phalanx. 5. Extensor tenotomy and capsulotomy of left fifth metatarsophalangeal joint. INTRODUCTION: The patient was brought to the operating room, placed on the operative table in the supine position. After having been suitably anesthetized with local infiltrative anesthesia, the left lower extremity was then prepped and draped in the usual sterile manner. Please note that prior to start of the procedure, the left foot was exsanguinated utilizing Esmarch bandage and left ankle tourniquet was inflated to 200 mmHg pressure for the duration of the procedures. HAMMERTOE REPAIR, LEFT FOURTH AND FIFTH TOES. Attention was directed to the dorsum of left fourth and fifth toe, where incision was approximately 2 cm length were effected, centered over the dorsum of the left fourth and fifth toe PIP joints. Incision was deepened in same plane. Hemostasis was acquired. Skin margins were underscored and retracted. A transverse incision was effected through the extensor tendon complex at the level of the proximal interphalangeal joint and extensor tendon was underscored and retracted. The hypertrophic head of the fourth and fifth toe proximal phalanges were then resected utilizing a sagittal saw. The wound was irrigated. The extensor tendon was closed with 3-0 Dexon. Skin margins were closed with 4-0 nylon. EXTENSOR TENOTOMY AND CAPSULOTOMY OF LEFT FIFTH METATARSOPHALANGEAL JOINT. Attention was now directed to the dorsal left fifth metatarsophalangeal joint, where the separate incision approximately 2 cm in length was effected, centered over the dorsum of the left fifth metatarsophalangeal joint. Skin margins were underscored and retracted. A dorsal extensor longus brevis tenotomy was performed. Sharp dissection as well as dorsal medial and lateral capsulotomy. Skin margins were closed with 4-0 nylon. EXCISION OF SKIN ULCER DISTAL LEFT FOURTH TOE. Attention was now directed to the distal aspect of the left fourth toe, where a transverse linear incision was effected at the level of the distal interphalangeal joint and converging semi-elliptical incision was effected distally to excise the ulcer as well as dystrophic nail entirely. The incisions were carried down to bone and the ellipse of skin as well as the distal phalanx was excised. Bone biopsy was taken of the distal aspect of the distal phalanx and sent to Pathology for evaluation of chronic osteomyelitis. The wound was irrigated with copious amounts of sterile saline. Skin margins were closed with 3-0 nylon. CONCLUSION: At the conclusion of these procedures, the operative sites were dressed with sterile Xeroform, 1-inch Conform, Betadine-soaked gauze, 4-inch Conform. The patient tolerated the surgery and anesthesia well and left the operating room via cart to the recovery room with vital signs stable. FINAL DISPOSITION: The patient is discharged home with instructions for self-care and include the followin. To keep the dressings dry, clean, and intact. 2. To keep the left leg elevated with ice above the ankle. 3. To take all medications as prescribed. 4. To limit activity to minimum. 5. To always use surgical shoe and crutches when ambulating. 6. To contact Dr. Barnes if any questions or problems arise. 7. The patient already has prescriptions at home for ibuprofen 800 mg, total #90 one p.o. t.i.d. p.c.; prescription for gabapentin 400 mg, total #10 one p.o. daily at bedtime, and lastly 1 pill daily. KEVIN Mayer/ILYAL / [phone]
--- NOTE | 2021-06-28 10:47 | HO.POSTANES ---
Post Anesthesia Evaluation Post Anesthesia Evaluation Vital Signs: Vital Signs Temp Pulse Resp BP Pulse Ox 06/28/21 09:00 97.6 F 70 18 115/64 94 06/28/21 08:45 74 18 108/59 L 92 06/28/21 08:40 74 16 101/52 L 94 06/28/21 08:35 77 16 95/54 L 95 06/28/21 08:30 97.7 F 84 16 91/52 L 94 06/28/21 06:59 97.2 F 74 16 124/74 96 Anesthesia: Monitored Mental Status: Awake Pain Control: Satisfactory Nausea/Vomiting: None and Mild Hydration: Adequate Anesthesia-Related Issues: No Anes. Related Issues
== END 2021-06-28 09:37 | disposition home or self-care (01) ==
PROVIDERS: PCP Nurse Practitioner Family; Visit Provider Podiatrist
PROC: (CPT 28285; principal; 2021-06-28 07:30)
DX: M20.42 Other hammer toe(s) (acquired), left foot (principal); M24.575 Contracture, left foot; M86.172 Other acute osteomyelitis, left ankle and foot; L97.529 Non-pressure chronic ulcer of other part of left foot with unspecified severity; I10 Essential (primary) hypertension; E11.9 Type 2 diabetes mellitus without complications; G62.9 Polyneuropathy, unspecified; Z79.899 Other long term (current) drug therapy; Z87.891 Personal history of nicotine dependence
CPT/HCPCS: 28285 ×2; 28270; 82947; 88304; 88305; 88311; J0690; J1100; J2250; J3010

== ENCOUNTER 2021-11-10 08:40 | Outpatient (REF) | payer BC, SELFPAY ==
[2021-11-10 11:32] LABS: Appearance Urine CLEAR; Color Urine YELLOW; Glucose Urine UA NEG (NEG); Leukocyte Esterase Urine 2+ (NEG); Nitrite Urine NEG (NEG); Specific Gravity - Urine >= 1.030 (1.005-1.025); UACC Culture Trigger YES; Urine Blood NEG (NEG); Urine Ketones NEG (NEG); Urine Protein TRACE MG/DL (NEG-TRACE)
[2021-11-10 11:46] LABS: Bacteria Urine TRACE /LPF; Mucus Urine 1+ /LPF; RBC Urine 0-2 /HPF (0); Squamous Epithelial Cell Urine 1+ /LPF
[2021-11-10 15:50] LABS: Estimated Average Glucose 177 mg/dL; Hemoglobin A1c % 7.8 %
== END 2021-11-10 08:41 | disposition home or self-care (01) ==
LOC: HO.HMGCLDS 08:40
PROVIDERS: PCP Nurse Practitioner Family; Visit Provider Nurse Practitioner Family
DX: E11.9 Type 2 diabetes mellitus without complications (principal)
CPT/HCPCS: 36415; 81001; 83036; 87086

== ENCOUNTER 2021-11-12 07:35 | Outpatient (REF) | payer BC, SELFPAY ==
[2021-11-12 12:15] LABS: TSH reflex Free T4 1.69 uIU/mL (0.32-4.0)
[2021-11-12 12:18] LABS: Microalbum/Creatinine Ratio Ur 19.9 ug/mg cr
[2021-11-12 12:18] LABS: Alanine Aminotransferase 47 U/L (0-31); Albumin Level 4.7 g/dL (3.5-5.0); Alkaline Phosphatase 82 U/L (39-117); Anion Gap 18 (12-20); Aspartate Amino Transferase 27 U/L (5-31); Bilirubin Total 0.8 mg/dL (0.0-1.0); Blood Urea Nitrogen 17 mg/dL (9-16); Calcium 10.4 mg/dL (8.4-10.2); Carbon Dioxide 24 mmol/L (22-29); Chloride 101 mmol/L (96-108); Cholesterol 191 mg/dL; Estimated Glomerular Filt Rate > 60; Glucose Fasting 209 mg/dL (60-99); HDL Cholesterol 45 mg/dL; LDL Cholesterol Calculated 95 mg/dl; Potassium 4.5 mmol/L (3.3-5.1); Sodium 138 mmol/L (135-145); Total Protein 8.3 g/dL (6.5-8.0); Triglycerides 257 mg/dL
== END 2021-11-12 07:36 | disposition home or self-care (01) ==
LOC: HO.HMGCLDS 07:35
PROVIDERS: Visit Provider Nurse Practitioner Family
DX: E11.9 Type 2 diabetes mellitus without complications (principal)
CPT/HCPCS: 36415; 80053; 80061; 82043; 84443

== ENCOUNTER 2021-12-08 08:14 | Outpatient (REF) | payer BC, SELFPAY ==
--- NOTE | ~2021-12-08 | MM_ITS ---
EXAMINATION: MM SCREENING DIGITAL BREAST TOMOSYNTHESIS, BILATERAL CLINICAL INFORMATION: Screening. Asymptomatic. The lifetime risk of breast cancer based on the Tyrer-Cuzick Model is 13%. COMPARISON: Mammography: 11/11/2020, 11/06/2019, 04/23/2019, 11/01/2018, 09/20/2018, ultrasound left breast 04/23/2019 TECHNIQUE: Digital breast tomosynthesis is performed in both the craniocaudal and mediolateral oblique views along with computer-aided detection (CAD). Synthesized 2D images are generated from the tomosynthesis. Additional exaggerated left CC view is provided. FINDINGS: There are scattered areas of fibroglandular density (ACR BI-RADS breast composition Category b). There are no significant masses, abnormal calcifications, or other abnormalities. The known cyst left breast 2:00 position is decreased since 2019. There is no developing density. No significant changes. MM/MM tomosynthesis screening BI IMPRESSION: No mammographic evidence of malignancy. ASSESSMENT: BI-RADS 2: Benign RECOMMENDATION: Routine annual mammography screening. This patient's information was entered into a reminder system with a target due date for their next mammogram.
== END 2021-12-08 08:15 | disposition home or self-care (01) ==
LOC: HO.MAMMO 08:14
PROVIDERS: Visit Provider Nurse Practitioner Family
DX: Z12.31 Encounter for screening mammogram for malignant neoplasm of breast (principal)
CPT/HCPCS: 77063; 77067

== ENCOUNTER 2021-12-20 08:27 | Outpatient (REF) | payer BC, SELFPAY ==
--- NOTE | ~2021-12-20 | MM_ITS ---
EXAMINATION: BONE DENSITOMETRY CLINICAL INDICATION: Asymptomatic menopausal state. COMPARISON: This is the patient's baseline examination. TECHNIQUE: Using a HiConversion DXA System (software version: 13.1) manufactured by [employer], dual-energy x-ray absorptiometry was performed of the lumbar spine and left hip. The images are of good technical quality. Summary results are attached. FINDINGS: AP SPINE L1-L4: BMD 1.220 g/cm2, Z-score 0.8, T-score 0.3, normal. LEFT FEMUR, NECK: BMD 0.934 g/cm2, Z-score 0.0, T-score -0.7, normal. LEFT FEMUR, TOTAL: BMD 0.995 g/cm2, Z-score 0.3, T-score -0.1, normal. IDENTIFIED RISK FACTORS: Menopause, anticonvulsants, history of fracture (adult). HISTORY OF FRACTURE: Ankle, rib. MEDICATIONS: Calcium supplements or multivitamin, vitamin D. MM/XR DEXA axial skeleton IMPRESSION: 1. DIAGNOSIS: Normal bone density based on the lowest T-score value of -0.7 in the femoral neck applying World Health Organization criteria. 2. 10-YEAR FRACTURE RISK PREDICTION, FRAX: According to the guidelines, FRAX calculation should only be performed on patients in the osteopenia bone density category. Therefore, FRAX was not performed on this patient. 3. Treatment Recommendations: NOF guidelines recommend consideration for treatment in postmenopausal women and men age 50 and older presenting with the following: -A hip or vertebral (clinical or morphometric) fracture. -T-score less than or equal to -2.5 at the femoral neck or spine after appropriate evaluation to exclude secondary causes. -Low bone mass at the hip or spine and a 10-year fracture probability by FRAX of greater than or equal to 3% for hip fracture or greater than or equal to 20% for major osteoporotic fracture based on the [place] adapted WHO algorithm. 4. Other Recommendations: All treatment decisions require clinical judgment and consideration of individual patient factors, including patient preferences, comorbidities, previous drug use, risk factors not captured in the FRAX model (e.g. frailty, falls, vitamin D deficiency, increased bone turnover, interval significant decline in bone density) and possible under or overestimation of fracture risk by FRAX. FUTURE SCAN RECOMMENDATION: People with diagnosed cases of osteoporosis or at high risk for fracture should have regular bone mineral density tests. For patients eligible for Medicare, routine testing is allowed once every 2 years. The testing frequency can be increased to one year for patients who have rapidly progressing disease, those who are receiving or discontinuing medical therapy to restore bone mass, or have additional risk factors.
== END 2021-12-20 08:28 | disposition home or self-care (01) ==
LOC: HO.MAMMO 08:27
PROVIDERS: Visit Provider Nurse Practitioner Family
DX: Z13.820 Encounter for screening for osteoporosis (principal); Z78.0 Asymptomatic menopausal state; Z87.81 Personal history of (healed) traumatic fracture
CPT/HCPCS: 77080

== ENCOUNTER 2022-01-07 16:41 | Outpatient (REF) | payer BC, SELFPAY ==
[2022-01-07 17:22] LABS: Influenza A PCR NEGATIVE (Negative); Influenza B PCR NEGATIVE (Negative); Resp Syncy Virus RNA Qual PCR NEGATIVE (Negative); SARS COV2 PCR INHOUSE NEGATIVE (Negative)
== END 2022-01-07 16:42 | disposition home or self-care (01) ==
LOC: HO.LNP 16:41
PROVIDERS: Visit Provider Physician Assistant
DX: B34.9 Viral infection, unspecified (principal); Z20.822 Contact with and (suspected) exposure to COVID-19
CPT/HCPCS: 0241U

== ENCOUNTER 2022-02-05 14:37 | Outpatient (RCR) | payer BC, SELFPAY | END 2022-08-16 10:03 | disposition home or self-care (01) | LOC: HO.WCC 14:37 | PROVIDERS: PCP Nurse Practitioner Family; Visit Provider Physician Assistant | DX: E11.621 Type 2 diabetes mellitus with foot ulcer (principal); L97.522 Non-pressure chronic ulcer of other part of left foot with fat layer exposed; E11.40 Type 2 diabetes mellitus with diabetic neuropathy, unspecified; Z87.891 Personal history of nicotine dependence | CPT/HCPCS: 11042; 17250; 97597; 99212 ==

== ENCOUNTER 2022-02-22 06:20 | Outpatient (REF) | payer BC, SELFPAY ==
--- NOTE | ~2022-02-22 | XR_ITS ---
EXAMINATION: XR FOOT, LEFT CLINICAL INFORMATION: Left great toe wound. COMPARISON: None TECHNIQUE: AP, lateral, and oblique views of the left foot. FINDINGS: There is mild flexion deformity PIP joint first digit with moderate soft tissue swelling. No bony erosive changes seen. However there is loss of joint space with periarticular spurring likely degenerative arthritic changes. Rest of the left foot is unremarkable. There is a small calcaneal heel enthesophyte. The ankle mortise and subtalar joints are normal. XR/XR foot LT min 3V IMPRESSION: Moderate soft tissue swelling left great toe. Mild degenerative arthritic changes PIP joint first digit. There is a small calcaneal heel enthesophyte.
[2022-02-22 11:42] LABS: MANUAL DIFF FLAG NO
[2022-02-22 12:07] LABS: Basophils Absolute Auto 0.1 X10*3/uL (0.0-0.2); Basophils Percent Auto 1.1 % (0-2); Eosinophils Absolute Auto 0.1 X10*3/uL (0.0-0.4); Eosinophils Percent Auto 1.8 % (0-4); Hematocrit 41.7 % (37.0-47.0); Hemoglobin 13.8 g/dl (12.0-16.0); Imm Gran Abs Auto 0.01 X10*3/uL (0.00-0.03); Imm Gran Pct Auto 0.2 % (0.0-0.4); Lymphocytes Absolute Auto 2.8 X10*3/uL (1.2-4.9); Lymphocytes Percent Auto 43.1 % (20-40); Mean Corpuscular HGB Conc 33.1 g/dl (31.0-35.0); Mean Corpuscular Hemoglobin 28.5 pg (27.0-33.0); Mean Platelet Volume 9.5 fL (9.4-12.3); Monocytes Absolute Auto 0.6 X10*3/uL (0.1-1.2); Monocytes Percent Auto 8.6 % (2-11); Neutrophils Absolute Auto 2.9 x10*3/uL (2.0-8.3); Neutrophils Percent Auto 45.2 % (45-73); Platelet Count 380 X10*3/uL (160-400); Red Blood Count 4.85 X10*6/uL (4.20-5.50); White Blood Count 6.5 X10*3/uL (4.8-10.8)
[2022-02-22 12:11] LABS: Estimated Average Glucose 154 mg/dL
[2022-02-22 12:23] LABS: Anion Gap 15 (12-20); Blood Urea Nitrogen 10 mg/dL (9-16); C Reactive Protein 0.54 mg/dL (< or = 0.50); Calcium 9.7 mg/dL (8.4-10.2); Carbon Dioxide 26 mmol/L (22-29); Chloride 104 mmol/L (96-108); Estimated Glomerular Filt Rate > 60; Glucose Random 170 mg/dL (60-115); Potassium 4.6 mmol/L (3.3-5.1); Sodium 140 mmol/L (135-145)
[2022-02-22 13:18] LABS: Erythrocyte Sedimentation Rate 7 MM/HR (0-20)
== END 2022-02-22 06:21 | disposition home or self-care (01) ==
LOC: HO.HMGCX 06:20
PROVIDERS: Absent Provider Physician Assistant; PCP Nurse Practitioner Family; Visit Provider Nurse Practitioner Family
DX: S91.102D Unspecified open wound of left great toe without damage to nail, subsequent encounter (principal)
CPT/HCPCS: 36415; 73630; 80048; 83036; 84134; 85025; 85652; 86140

== ENCOUNTER 2022-04-12 11:12 | Outpatient (REF) | payer BC, SELFPAY ==
--- NOTE | ~2022-04-12 | MR_ITS ---
EXAMINATION: MRI OF THE LEFT FOOT WITH AND WITHOUT CONTRAST CLINICAL INFORMATION: Non-healing wound of the left great toe. Rule out osteomyelitis COMPARISON: Radiograph dated 02/22/2022 and MRI dated 10/01/2018 TECHNIQUE: Multiplanar MR imaging was obtained through the left foot on a 1.5 Frances magnet before and after intravenous administration of 9 mL Gadavist. FINDINGS: Edema signal and enhancement are present in the subcutaneous soft tissues at the great toe. A superficial skin wound in this region is possible, particularly along the folds of the nail bed. No abscess or other fluid collections. Edema signal and enhancement are noted within the remodeled, angulated distal phalanx, more pronounced at the base. There is normal signal within the distal phalanx on T1-weighted images. Prominent degenerative arthritis is evident within the great toe interphalangeal joint, likely the remnant of prior septic arthritis. More [id number] osteophyte is present in the 1st MTP joint with subchondral edema in the 1st MTP joint. The distal phalanges are absent at the 2nd and 3rd toes and the medial middle phalanges are fused to the proximal phalanges at the PIP joints. The PIP joints of the 4th and 5th MTP joints are remodeled and irregular with bone loss. No evidence of septic arthritis or osteomyelitis at the phalanges. [id number] multifocal osteophytes is evident in the tarsometatarsal joints, characterized by nonuniform cartilage loss, marginal osteophytes, and foci of subchondral edema. There is diffuse atrophy and fatty replacement of the intrinsic foot musculature. No tenosynovitis. Imaged plantar fascia is unremarkable. MR/MR foot LT wo/w con IMPRESSION: Marrow edema signal and enhancement at the distal phalanx of the great toe which, in the absence of a clear wound extending to the depth of bone, likely corresponds to reactive edema related to overlying cellulitis. No convincing findings of acute osteomyelitis. No abscess.
== END 2022-04-12 11:13 | disposition home or self-care (01) ==
LOC: HO.MRI 11:12
PROVIDERS: Visit Provider Physician Assistant
DX: L97.322 Non-pressure chronic ulcer of left ankle with fat layer exposed (principal); E11.621 Type 2 diabetes mellitus with foot ulcer
CPT/HCPCS: 73720; A9585

== ENCOUNTER 2022-04-24 06:19 | Outpatient (REF) | payer BC, SELFPAY ==
[2022-04-24 11:15] LABS: MANUAL DIFF FLAG NO
[2022-04-24 11:30] LABS: Basophils Absolute Auto 0.1 X10*3/uL (0.0-0.2); Basophils Percent Auto 0.9 % (0-2); Eosinophils Absolute Auto 0.2 X10*3/uL (0.0-0.4); Eosinophils Percent Auto 2.2 % (0-4); Hematocrit 38.3 % (37.0-47.0); Hemoglobin 12.8 g/dl (12.0-16.0); Imm Gran Abs Auto 0.02 X10*3/uL (0.00-0.03); Imm Gran Pct Auto 0.3 % (0.0-0.4); Lymphocytes Absolute Auto 3.1 X10*3/uL (1.2-4.9); Lymphocytes Percent Auto 45.2 % (20-40); Mean Corpuscular HGB Conc 33.4 g/dl (31.0-35.0); Mean Corpuscular Hemoglobin 28.8 pg (27.0-33.0); Mean Corpuscular Volume 86.1 fL (80.0-98.0); Mean Platelet Volume 9.6 fL (9.4-12.3); Monocytes Absolute Auto 0.5 X10*3/uL (0.1-1.2); Monocytes Percent Auto 6.6 % (2-11); Neutrophils Absolute Auto 3.1 x10*3/uL (2.0-8.3); Neutrophils Percent Auto 44.8 % (45-73); Platelet Count 376 X10*3/uL (160-400); Red Blood Count 4.45 X10*6/uL (4.20-5.50); Red Cell Distribution Width 13.2 % (11.0-16.0); White Blood Count 6.9 X10*3/uL (4.8-10.8)
[2022-04-24 11:45] LABS: Estimated Average Glucose 143 mg/dL; Hemoglobin A1c % 6.6 %
[2022-04-24 11:46] LABS: Alanine Aminotransferase 36 U/L (0-31); Albumin Level 4.1 g/dL (3.5-5.0); Alkaline Phosphatase 55 U/L (39-117); Anion Gap 13 (12-20); Aspartate Amino Transferase 21 U/L (5-31); Bilirubin Total 0.6 mg/dL (0.0-1.0); Blood Urea Nitrogen 11 mg/dL (9-16); Carbon Dioxide 25 mmol/L (22-29); Chloride 106 mmol/L (96-108); Cholesterol 142 mg/dL; Estimated Glomerular Filt Rate > 60; Glucose Fasting 136 mg/dL (60-99); HDL Cholesterol 43 mg/dL; LDL Cholesterol Calculated 73 mg/dl; Potassium 4.2 mmol/L (3.3-5.1); Sodium 140 mmol/L (135-145); Total Protein 6.9 g/dL (6.5-8.0); Triglycerides 133 mg/dL
[2022-04-24 11:59] LABS: Appearance Urine CLEAR; Color Urine YELLOW; Glucose Urine UA NEG (NEG); Leukocyte Esterase Urine TRACE (NEG); Nitrite Urine NEG (NEG); PH 5.5 (5.0-8.0); Specific Gravity - Urine >= 1.030 (1.005-1.025); Urine Blood NEG (NEG); Urine Ketones NEG (NEG); Urine Protein NEG (NEG-TRACE)
[2022-04-24 12:08] LABS: TSH reflex Free T4 2.28 uIU/mL (0.32-4.0)
[2022-04-24 12:48] LABS: Squamous Epithelial Cell Urine 1+ /LPF
[2022-04-24 12:49] LABS: RBC Urine 0 /HPF (0); WBC Urine 0-2 /HPF (0-4)
== END 2022-04-24 06:20 | disposition home or self-care (01) ==
LOC: HO.HMGCLDS 06:19
PROVIDERS: PCP Nurse Practitioner Family; Visit Provider Nurse Practitioner Family
DX: E11.9 Type 2 diabetes mellitus without complications (principal)
CPT/HCPCS: 36415; 80053; 80061; 81001; 81003; 83036; 84443; 85025

== ENCOUNTER 2022-06-26 10:55 | Outpatient (REF) | payer BC, SELFPAY ==
[2022-06-26 14:15] LABS: MANUAL DIFF FLAG NO
[2022-06-26 14:16] LABS: Appearance Urine Clear; Basophils Absolute Auto 0.1 X10*3/uL (0.0-0.2); Basophils Percent Auto 0.8 % (0-2); Color Urine Yellow; Eosinophils Absolute Auto 0.1 X10*3/uL (0.0-0.4); Eosinophils Percent Auto 1.5 % (0-4); Glucose Urine UA Negative (Negative); Hematocrit 40.4 % (37.0-47.0); Hemoglobin 13.7 g/dl (12.0-16.0); Imm Gran Abs Auto 0.02 X10*3/uL (0.00-0.03); Imm Gran Pct Auto 0.3 % (0.0-0.4); Leukocyte Esterase Urine Negative (Negative); Lymphocytes Percent Auto 40.3 % (20-40); Mean Corpuscular HGB Conc 33.9 g/dl (31.0-35.0); Mean Corpuscular Volume 85.6 fL (80.0-98.0); Mean Platelet Volume 9.3 fL (9.4-12.3); Monocytes Absolute Auto 0.5 X10*3/uL (0.1-1.2); Monocytes Percent Auto 7.2 % (2-11); Neutrophils Absolute Auto 3.8 x10*3/uL (2.0-8.3); Neutrophils Percent Auto 49.9 % (45-73); Nitrite Urine Negative (Negative); Platelet Count 422 X10*3/uL (160-400); Red Blood Count 4.72 X10*6/uL (4.20-5.50); Red Cell Distribution Width 12.9 % (11.0-16.0); Urine Blood Negative (Negative); Urine Ketones Negative (Negative); Urine Protein Negative (Neg-Trace); White Blood Count 7.6 X10*3/uL (4.8-10.8)
[2022-06-26 14:19] LABS: Prothrombin Time 11.6 SEC (10.0-13.1)
[2022-06-26 14:22] LABS: Partial Thromboplastin Time 29.7 SEC (26.0-36.4)
[2022-06-26 14:58] LABS: Vitamin D 25-OH Total 26.2 ng/mL (>30)
[2022-06-27 13:21] LABS: Calcium (PTHI) 10.1 mg/dL (8.6-10.4); PTHI 45 pg/mL (16-77)
[2022-07-01 19:22] LABS: Calcium, Ionized 5.1 mg/dL (4.8-5.6)
== END 2022-06-26 10:56 | disposition home or self-care (01) ==
LOC: HO.HMGCLDS 10:55
PROVIDERS: PCP Nurse Practitioner Family; Visit Provider Nurse Practitioner Family
DX: R23.8 Other skin changes (principal); E83.52 Hypercalcemia; E11.9 Type 2 diabetes mellitus without complications; Z78.0 Asymptomatic menopausal state
CPT/HCPCS: 36415; 81003; 82306; 82330; 83970; 85025; 85610; 85730

== ENCOUNTER → 2022-07-19 07:33 | Outpatient (REF) | payer BC, SELFPAY ==
--- NOTE | 2022-07-19 07:37 | CA_ITS ---
Transthoracic Echocardiogram Patient (Last, First, Middle): Marilu Vick, Gender: Female Date of : 1960 Age: 61 Procedure Date: 07/19/2022 Procedure Type: Transthoracic Echocardiogram Location: OP Height: 170.18 cm Weight: 83.92 kg BSA: 1.96 m2 Heart Rate: 69 bpm BP: 130 / 70 mmHg Turner Machine Operator: KELVIN Referring MD: Marcelo Quintanilla [facility] Symptoms: R01.1 - Cardiac murmur, unspecified Study Quality: Fair ECG Rhythm: Sinus Conclusions: - The left ventricular systolic function is normal. The calculated ejection fraction is 68% by biplane method. - There is mild calcification of the aortic valve. - No obvious valvular pathology seen on this study. Findings Procedure Information Contrast agent, definity, is being given per protocol without apparent complications. Left Ventricle Normal left ventricular cavity size. There is mildly increased left ventricular wall thickness. The left ventricular systolic function is normal. The calculated ejection fraction is 68% by biplane method. There is no evidence of regional wall motion abnormalities. Diastolic function is normal for age. Right Ventricle Normal right ventricular cavity size. There is low normal right ventricular systolic function. Atria Both atria are normal in size. Aortic Valve There is a normal trileaflet aortic valve. There is mild calcification of the aortic valve. There is no aortic valve stenosis. There is no aortic valve regurgitation. Mitral Valve The mitral valve appears normal. There is no mitral valve regurgitation. There is no mitral valve stenosis. Pulmonic Valve The pulmonic valve is likely normal. Tricuspid Valve There is trace tricuspid valve regurgitation. Tricuspid regurgitation envelope is inadequate for calculation of right ventricular systolic pressure. Great Vessels The asc aorta is normal in size. Venous The inferior vena cava was not well visualized. Pericardium/Pleural There is no evidence of pericardial effusion. Prior Study Comparison No prior study available for comparison. Recommendations, Care & Conclusions No obvious valvular pathology seen on this study. Measurements 2D Linear Measurements IVSd: 1.14 0.6-0.9/0.6-1.0 cm LVIDd: 3.77 3.9-5.3/4.2-5.9 cm LVIDd Index: 1.92 2.4-3.2/2.2-3.1 cm/m2 LVIDs: 2.49 2.0-3.6 cm LVPWd: 1.15 0.7-1.1 cm LA Diam: 3.50 2.7-3.8/3.0-4.0 cm LAIDs Index: 1.79 1.5-2.3 cm/m2 LV Mass: 175.72 67-162/88-224 g LV Mass Index: 89.65 43-95/49-115 g/m2 LVOT Diam: 1.90 3.0+(-)1.3 cm 2D Systolic Function EF 4C: 74.00 >55% EF 2C: 65.80 >55% EF BiP: 68.20 >55% Mitral Valve MV Pk E: 0.64 MV PK A: 0.69 MV Decel Time: 252.00 E/A: 0.90 E'Lateral: 8.92 E'Medial: 6.74 E/E' Med: 9.50 E/E' Lat: 7.20 PHT: 74.00 MVA PHT: 2.97 Decel Kendall: 2.54 Aortic Valve AoV Pk Dani: 1.51 AoV Mn Dani: 1.04 AoV VTI: 0.30 AoV Pk Grad: 9.00 Aov Mn Grad: 5.00 DONOVAN Cont.VTI: 2.48 LVOT LVOT Pk Dani: 1.27 LVOT Mn Dani: 0.88 LVOT VTI: 0.26 LVOT Pk Grad: 6.00 LVOT Mn Grad: 4.00 LVOT Diam: 1.90 LVOT Area: 2.84 Diastolic Function MV Pk E: 0.64 MV Pk A: 0.69 E/A: 0.90 E'Medial: 6.74 E/E' Med: 9.50 E' Laterial: 8.92 E/E' Lat: 7.20 Right Ventricle TAPSE (mm): 17.00 TVS' Dani: 10.10 Great Vessels Aorta Sinus of Valsalva: 3.10 2.0-3.5 cm Ao Asc: 3.30 2.1-3.4 cm Pulmonary Valve PV Pk Dani: 1.03 Peak PV Grad: 4.00 Updated in Other Vendor System with Status of Final Sridhar Schmitz MD electronically signed on 07/20/2022 12:11:46 PM with status of Final
== END ==
LOC: HO.CARD 07:33
PROVIDERS: Visit Provider Nurse Practitioner Family
DX: R01.1 Cardiac murmur, unspecified (principal)
CPT/HCPCS: 93306; Q9957

== ENCOUNTER 2023-01-11 07:53 | Outpatient (REF) | payer BC, SELFPAY ==
--- NOTE | ~2023-01-11 | MM_ITS ---
EXAMINATION: MM SCREENING DIGITAL BREAST TOMOSYNTHESIS, BILATERAL CLINICAL INFORMATION: Screening. Asymptomatic. The lifetime risk of breast cancer based on the Tyrer-Cuzick Model is 10%. COMPARISON: Mammography: 12/08/2021, 11/11/2020, 11/06/2019, left breast ultrasound 04/23/2019. TECHNIQUE: Digital breast tomosynthesis is performed in both the craniocaudal and mediolateral oblique views along with computer-aided detection (CAD). Synthesized 2D images are generated from the tomosynthesis. FINDINGS: There are scattered areas of fibroglandular density (ACR BI-RADS breast composition Category b). There are no significant masses, abnormal calcifications, or other abnormalities. There is no developing density or interval architectural abnormality. The known small cyst central upper outer left breast is decreased in size from prior exams. The axilla and skin contours are unremarkable. MM/MM tomosynthesis screening BI IMPRESSION: -No mammographic evidence of malignancy. ASSESSMENT: BI-RADS 2: Benign RECOMMENDATION: Routine annual mammography screening. This patient's information was entered into a reminder system with a target due date for their next mammogram.
== END 2023-01-11 07:54 | disposition home or self-care (01) ==
LOC: HO.MAMMO 07:53
PROVIDERS: Visit Provider Nurse Practitioner Family
DX: Z12.31 Encounter for screening mammogram for malignant neoplasm of breast (principal)
CPT/HCPCS: 77063; 77067

== ENCOUNTER 2023-01-28 06:24 | Outpatient (REF) | payer BC, SELFPAY ==
[2023-01-28 11:10] LABS: MANUAL DIFF FLAG NO
[2023-01-28 11:25] LABS: Appearance Urine Clear; Color Urine Yellow; Glucose Urine UA Negative (Negative); Leukocyte Esterase Urine Negative (Negative); Nitrite Urine Negative (Negative); PH 5.5 (5.0-9.0); Specific Gravity - Urine 1.025 (1.005-1.025); Urine Blood Negative (Negative); Urine Ketones Negative (Negative); Urine Protein Negative (Neg-Trace)
[2023-01-28 11:36] LABS: Basophils Absolute Auto 0.1 X10*3/uL (0.0-0.2); Basophils Percent Auto 1.2 % (0-2); Eosinophils Absolute Auto 0.2 X10*3/uL (0.0-0.4); Eosinophils Percent Auto 2.8 % (0-4); Hematocrit 41.2 % (37.0-47.0); Imm Gran Abs Auto 0.01 X10*3/uL (0.00-0.03); Imm Gran Pct Auto 0.1 % (0.0-0.4); Lymphocytes Absolute Auto 2.6 X10*3/uL (1.2-4.9); Mean Corpuscular Hemoglobin 28.9 pg (27.0-33.0); Mean Corpuscular Volume 84.9 fL (80.0-98.0); Mean Platelet Volume 9.4 fL (9.4-12.3); Monocytes Absolute Auto 0.6 X10*3/uL (0.1-1.2); Monocytes Percent Auto 8.9 % (2-11); Neutrophils Absolute Auto 3.3 x10*3/uL (2.0-8.3); Platelet Count 394 X10*3/uL (160-400); Red Blood Count 4.85 X10*6/uL (4.20-5.50); Red Cell Distribution Width 13.2 % (11.0-16.0); White Blood Count 6.8 X10*3/uL (4.8-10.8)
[2023-01-28 11:48] LABS: Estimated Average Glucose 151 mg/dL; Hemoglobin A1c % 6.9 %
[2023-01-28 12:05] LABS: Alanine Aminotransferase 40 U/L (0-31); Albumin Level 4.6 g/dL (3.5-5.0); Alkaline Phosphatase 68 U/L (39-117); Anion Gap 18 (12-20); Aspartate Amino Transferase 23 U/L (5-31); Bilirubin Total 0.7 mg/dL (0.0-1.0); Blood Urea Nitrogen 17 mg/dL (9-16); Calcium 10.1 mg/dL (8.4-10.2); Carbon Dioxide 19 mmol/L (22-29); Chloride 105 mmol/L (96-108); Cholesterol 174 mg/dL; Estimated Glomerular Filt Rate > 60; Glucose Fasting 180 mg/dL (60-99); HDL Cholesterol 45 mg/dL; LDL Cholesterol Calculated 78 mg/dl; Potassium 4.3 mmol/L (3.3-5.1); Sodium 138 mmol/L (135-145); TSH reflex Free T4 2.07 uIU/mL (0.32-4.0); Total Protein 7.5 g/dL (6.5-8.0); Triglycerides 259 mg/dL
== END 2023-01-28 06:25 | disposition home or self-care (01) ==
LOC: HO.HMGCLDS 06:24
PROVIDERS: PCP Nurse Practitioner Family; Visit Provider Nurse Practitioner Family
DX: E11.9 Type 2 diabetes mellitus without complications (principal)
CPT/HCPCS: 36415; 80053; 80061; 81003; 83036; 84443; 85025

== ENCOUNTER 2023-06-03 08:01 | Outpatient (AMB) | payer BC, SELFPAY ==
--- NOTE | 2023-06-03 08:08 | MHC.PC.OV ---
Vital Signs 06/03/23 08:09 Height 5 ft 7 in Weight 184 lb 6 oz BMI 28.9 BP 130/86 Blood Pressure Location Rt brachial Position Sitting Pulse 81 Pulse Source Pulse Oximeter Pulse Oximetry (%) 98 Oxygen Delivery Method Room Air Intake Visit Reasons: PE Allergies No Known Allergies [No Known Allergies*] Allergy (Verified 06/03/23 08:11) Medication List - Last Reconciled 06/03/23 by RADHA Martínez-DEBORAH alcohol swabs (Alcohol Pads) 1 pad topical .daily atorvastatin 10 mg PO DAILY blood sugar diagnostic (WaterSmart SoftwareTouch Ultra Test strips) bid blood-glucose meter (WaterSmart SoftwareTouch Ultra2 Meter) As directed celecoxib (Celebrex) 50 mg PO BID PRN 30 days cholecalciferol (vitamin D3) 50 mcg PO DAILY flash glucose scanning reader (BirdbackStyle Griffin 2 [address]) 4 times a day testing flash glucose sensor (FreeStyle Griffin 2 Sensor kit) 4 times a day testing gabapentin 400 mg PO BEDTIME 90 days lancets (PowerDMSuch UltraSoft Lancets) As directed lisinopril 5 mg PO DAILY 90 days metformin 1,000 mg PO BID 90 days zl-kgnikgu-hot-iron fm-FA-vitK 18 mg-400 mcg- 25 mcg (One-A-Day Women's Complete(with vit K)) tabs PO omega-3 acid ethyl esters 1 cap PO BID 90 days pantoprazole 20 mg PO DAILY 90 days Tobacco use date assessed: 06/03/23 Dental Screening Dental Screen Date: 06/03/23 Did you have a dental visit in the last 12 months?: Yes Did you have a dental problem in the last 6 months where you did not have access to dental care?: No Was dental information given to patient?: Patient has dentist HPI PE HPI Details Pt is here for a PE. Will order labs. Pt has an appointment scheduled with GI for her pre-colonoscopy screening. Mammo is up to date. Has a grocery store manager. Pt is a diabetic, on an DEE and a statin. A1C in office today is 7.2. Due for microalbumin, will order. Denies polyuria and polydipsia, does report neuropathy. Pt denies any signs and symptoms of hypoglycemia and does know how to correct it. Eye exam is up to date. Pt would not like to take any other medications currently, she will work on her diet. Refuses pneumonia vaccines. Pt reports multiple skin lesions to her back and BUE. Will refer to dermHoracio COUNT INCLUDES [facility] Medical History Cellulitis of left leg COVID-19 vaccine series completed Diabetes Arthritis Anxiety Hx of osteomyelitis History of cholelithiasis GERD (gastroesophageal reflux disease) Dyslipidemia Acquired hammertoes of both feet Peripheral neuropathy Surgical History Hx of foot surgery History of esophagogastroduodenoscopy (EGD) Hx of colonoscopy History of ankle surgery History of hammertoe correction History of skin ulcer Hx of cholecystectomy Family History Father Diabetes mellitus HTN (hypertension) Myocardial infarction Hyperlipidemia Mother Lymphoma Hyperlipidemia Social History Household Members: Spouse Housing: [facility] Are you a primary hospice care sales consultant to a significant other at home: No Do you presently have visiting nurse or other home services: No Alcohol intake: current Alcohol intake frequency: a few times a month Patient Tobacco Use Status: Former Tobacco user Quit Date: 1994 Tobacco use type: Cigarette e-Cigarette/Vaping Use: Never Used Second Hand Smoke Exposure: Yes Advance Directives Date on File: 02/10/17 Current occupational status: employed Current occupation: [employer] Current occupational exposures/hazards: No Cognitive needs: No Hearing needs: No Vision needs: No Questionnaire Thrive Questionnaire Date Thrive assessed: 04/25/22 HAVEN-7 AMB Questionnaire HAVEN-7 Date HAVEN - 7 assessed: 04/25/22 Source: Developed by Drs. Jaiden Olvera, Marcelle Munoz, Ihsan Almeida and colleagues, with an educational tip from [employer]. Review of Systems Const Denies chills and Denies fever(s) Eyes Denies blurry vision ENT Denies vertigo, Denies dizziness and Denies sore throat Card Denies chest pain at rest, Denies chest pain with activity, Denies diaphoresis, Denies dyspnea and Denies dyspnea on exertion Resp Denies cough, Denies dyspnea, Denies dyspnea on exertion and Denies wheezing GI Denies abdominal pain, Denies melena, Denies hematochezia, Denies constipation, Denies diarrhea and Denies loose stools Denies hematuria Musc Reports numbness and Reports tingling Skin/Breast Denies lesions Neuro Denies vertigo, Denies dizziness, Reports numbness and Reports tingling Psych Denies anxiety, Denies depression, Denies homicidal ideation, Denies suicidal ideation and Denies other (substance abuse) Aller/Immun Denies wheezing Physical exam (Primary Care) Vital Signs: Last Vital Signs Pulse 81 06/03/23 08:09 BP 130/86 06/03/23 08:09 Pulse Ox 98 06/03/23 08:09 Oxygen Delivery Method Room Air 06/03/23 08:09 BMI result Body Mass Index 28.9 Tobacco/Smoking Status: Tobacco use Status Tobacco use date assessed 06/03/23 06/03/23 08:14 Patient Tobacco Use Status Former Tobacco user 06/03/23 08:12 Tobacco use type Cigarette 06/03/23 08:12 e-Cigarette/Vaping Use Never Used 06/03/23 08:12 Thrive Assessment: Date of Thrive Assessment Date Thrive assessed 04/25/22 06/03/23 08:12 Const General: cooperative Nutritional Appearance: well nourished Orientation/consciousness: patient oriented x3 HENMT Head: Yes normal to inspection, Yes normocephalic and Yes atraumatic Ears: TM's normal bilaterally Eyes General: appearance normal, both eyes and all related structures Alignment and Position: alignment normal and position normal Neck Neck: Yes normal visual inspection and Yes no lymphadenopathy Thyroid: Thyroid normal Resp Effort & Inspection: normal respiratory effort Auscultation: clear to auscultation bilaterally Cardio Rate: regular rate Rhythm: regular rhythm Heart sounds: S1 normal heart sound present, S2 normal heart sound present and no murmurs GI Palpation (GI): Soft to palpation and nontender Auscultation: normal bowel sounds Skin Other: multiple lesions (papular) ranging in size, shape, and color, to back and bilat upper extrem Rashes: no rashes Neuro General: patient oriented x3, moves all extremities, no focal motor deficits and deep tendon reflexes 2+ bilaterally Romberg Test: Negative Extrem Other: bilat feet: no sensation with use of monofilament Psych Appearance: grossly normal Mental Status: mental status grossly normal Speech and movement: Normal speech and movement present Affect: normal affect Attitude: cooperative Thought process: Normal thought process present Thought content: Normal thought content present Insight: Good insight present (Psych) Judgement: Good judgement present (Psych) Results AMB Hemoglobin A1c AMB Hemoglobin A1c 7.2 % Last Edit by Georgia Orlando CMA on 06/03/23 08:43 Assessment and Plan Assessment & Plan (1) Physical exam: Code(s): Z00.00 - Encounter for general adult medical examination without abnormal findings Plan: Labs ordered (2) Diabetes: Code(s): E11.9 - Type 2 diabetes mellitus without complications Plan: Labs ordered (3) Skin lesions: Code(s): L98.9 - Disorder of the skin and subcutaneous tissue, unspecified Plan: Referred to derm Plan The patient agreed to the use of a medical imaging specialist for this encounter. Scribed for KEV Rodrigues by Malaika Daily medical imaging specialist, on 06/03/2023 at 08:20 EST. Orders: Orders Comprehensive [place]. Panel Fast Today E11.9 - Type 2 diabetes mellitus without complications, Z00.00 - Encounter for general adult medical examination without abnormal findings UA CC w/rflx Micro + Cult Today E11.9 - Type 2 diabetes mellitus without complications, Z00.00 - Encounter for general adult medical examination without abnormal findings Lipid Panel Today E11.9 - Type 2 diabetes mellitus without complications, Z00.00 - Encounter for general adult medical examination without abnormal findings Complete Blood Count Auto Diff Today E11.9 - Type 2 diabetes mellitus without complications, Z00.00 - Encounter for general adult medical examination without abnormal findings TSH reflex Free T4 Today E11.9 - Type 2 diabetes mellitus without complications, Z00.00 - Encounter for general adult medical examination without abnormal findings Microalbumin, Random (w Creat) Today E11.9 - Type 2 diabetes mellitus without complications, Z00.00 - Encounter for general adult medical examination without abnormal findings AMB Hemoglobin A1c Today E11.9 - Type 2 diabetes mellitus without complications Referrals Dermatology Referral L98.9 - Disorder of the skin and subcutaneous tissue, unspecified Coding Level of Care Code Est Pt Prev Care 40-64y(19485) Diagnoses Physical exam Z00.00 Diabetes E11.9 Skin lesions L98.9
[2023-06-03 08:09] VITALS: BP 130/86; PULSE 81; O2SAT 98; BMI 28.9
== END 2023-06-03 10:08 | disposition home or self-care (01) ==
PROVIDERS: Visit Provider Nurse Practitioner Family
DX: Z00.00 Encounter for general adult medical examination without abnormal findings (principal); E11.9 Type 2 diabetes mellitus without complications; L98.9 Disorder of the skin and subcutaneous tissue, unspecified
CPT/HCPCS: 83036; 99396

== ENCOUNTER 2023-06-24 08:12 | Outpatient (AMB) | payer BC, SELFPAY ==
--- NOTE | 2023-06-24 08:55 | MHC.OFFWIV ---
Intake Vital Signs 06/24/23 09:01 Height 5 ft 7 in Weight 184 lb BMI 28.8 BP 130/72 Blood Pressure Location Lt brachial Position Sitting Pulse 74 Pulse Source Pulse Oximeter Temp 97.9 F Temp Source Temporal Artery Scan Pulse Oximetry (%) 98 Intake Visit Reasons: EP RT Eye Sty Intake Note: pt is here for c/o rt eye watering, discomfort, possible sty Patient Tobacco Use Status: Former Tobacco user Quit Date: 1994 Allergies No Known Allergies [No Known Allergies*] Allergy (Verified 06/24/23 09:24) Medication List - Last Reconciled 06/24/23 by Craig Archer MD alcohol swabs (Alcohol Pads) 1 pad topical .daily atorvastatin 10 mg PO DAILY blood sugar diagnostic (XMPieTouch Ultra Test strips) bid blood-glucose meter (XMPieTouch Ultra2 Meter) As directed celecoxib (Celebrex) 50 mg PO BID PRN 30 days cholecalciferol (vitamin D3) 50 mcg PO DAILY erythromycin 0.5 inches ophthalmic (eye) TID flash glucose scanning reader (SkaiStyle [address]) 4 times a day testing flash glucose sensor (FreeStyle Griffin 2 Sensor kit) 4 times a day testing gabapentin 400 mg PO BEDTIME 90 days lancets (XMPieTouch UltraSoft Lancets) As directed lisinopril 5 mg PO DAILY 90 days metformin 1,000 mg PO BID 90 days ht-eixpgav-mqq-iron fm-FA-vitK 18 mg-400 mcg- 25 mcg (One-A-Day Women's Complete(with vit K)) tabs PO omega-3 acid ethyl esters 1 cap PO BID 90 days pantoprazole 20 mg PO DAILY 90 days Do you need a note to return to daycare/school/sports/work: Yes HPI EP RT Eye Sty HPI Details 62-year-old female presents to the office for a sick visit. Patient has a developing stye in the right eye. She is concerned as her daughter is getting this weekend. [facility] Medical History Cellulitis of left leg COVID-19 vaccine series completed Diabetes Arthritis Anxiety Hx of osteomyelitis History of cholelithiasis GERD (gastroesophageal reflux disease) Dyslipidemia Acquired hammertoes of both feet Peripheral neuropathy Surgical History Hx of foot surgery History of esophagogastroduodenoscopy (EGD) Hx of colonoscopy History of ankle surgery History of hammertoe correction History of skin ulcer Hx of cholecystectomy Family History Father Diabetes mellitus HTN (hypertension) Myocardial infarction Hyperlipidemia Mother Lymphoma Hyperlipidemia Social History Household Members: Spouse Housing: [facility] Are you a primary physician primary care sports medicine to a significant other at home: No Do you presently have visiting nurse or other home services: No Alcohol intake: current Alcohol intake frequency: a few times a month Patient Tobacco Use Status: Former Tobacco user Quit Date: 1994 Tobacco use type: Cigarette e-Cigarette/Vaping Use: Never Used Second Hand Smoke Exposure: Yes Advance Directives Date on File: 02/10/17 Current occupational status: employed Current occupation: [employer] Current occupational exposures/hazards: No Cognitive needs: No Hearing needs: No Vision needs: No Physical Exam Vital Signs: Last Vital Signs Temp 97.9 F 06/24/23 09:01 Pulse 74 06/24/23 09:01 BP 130/72 06/24/23 09:01 Pulse Ox 98 06/24/23 09:01 BMI result Body Mass Index 28.8 Eyes Other: Right eye: Lower eyelid: Swelling in the middle of the eyelid with adjacent tarsal conjunctiva is congested. Corneas clear. Anterior chambers clear. Assessment & Plan Assessment & Plan (1) Hordeolum externum of right lower eyelid: Code(s): H00.012 - Hordeolum externum right lower eyelid Plan: Erythromycin ophthalmic ointment suggested. To use twice a day. To not use makeup for the next 48 hours. Medications: New erythromycin 0.5 inches ophthalmic (eye) TID 1 g 0RF Coding Level of Care Code Est Pt Level 3 (38790) Diagnoses Hordeolum externum of right lower eyelid H00.012
[2023-06-24 09:01] VITALS: BP 130/72; PULSE 74; TEMP 36.6; O2SAT 98; BMI 28.8
== END 2023-06-24 09:30 | disposition home or self-care (01) ==
PROVIDERS: PCP Nurse Practitioner Family; Visit Provider Internal Medicine
DX: H00.012 Hordeolum externum right lower eyelid (principal)
CPT/HCPCS: 99213

== ENCOUNTER 2023-09-20 09:07 | Outpatient (REF) | payer BC, SELFPAY | END 2023-09-20 09:08 | disposition home or self-care (01) | LOC: HO.HMGCLDS 09:07 | PROVIDERS: PCP Nurse Practitioner Family; Visit Provider Nurse Practitioner Family | DX: Z00.00 Encounter for general adult medical examination without abnormal findings (principal); E11.9 Type 2 diabetes mellitus without complications | CPT/HCPCS: 36415; 80053; 80061; 81001; 82043; 82570; 84443; 85025 ==

== ENCOUNTER 2023-09-24 08:39 | Outpatient (AMB) | payer BC, SELFPAY ==
--- NOTE | 2023-09-24 08:49 | MHC.PC.OV ---
Vital Signs 09/24/23 09:00 Weight 192 lb BP 130/96 H Blood Pressure Location Lt brachial Position Sitting Pulse 87 Pulse Source Pulse Oximeter Pulse Oximetry (%) 97 Oxygen Delivery Method Room Air Intake Visit Reasons: 4m follow up Intake Note: Patient here for diabetes f/u. pt states she has not checked her sugars at home in about 6 months. Allergies No Known Allergies [No Known Allergies*] Allergy (Verified 09/24/23 09:01) Tobacco use date assessed: 09/24/23 HPI 4m follow up HPI Details Pt is a diabetic, on an DEE and a statin. A1C in office today is 8.8. Microalbumin is up to date. Denies polyuria, polydipsia, does report neuropathy. Pt denies any signs and symptoms of hypoglycemia and does know how to correct it. Will start jardiance 10mg. BP is elevated today, though pt is very upset. She is in tears today due to her significant other having stage 4 lung cancer with mets to the brain and bones. Pt reports that she has not been taking care of herself due to things going on at home. Will have team speak with pt. Denies any SI and HI. Will increase lisinopril from 5mg to 10mg. Denies chest pain, shortness of breath, headache, dizziness, and blurred vision. Pt is following up with podiatry. Microalbuminuria noted, will refer to nephrology. [facility] Medical History Cellulitis of left leg COVID-19 vaccine series completed Diabetes Arthritis Anxiety Hx of osteomyelitis History of cholelithiasis GERD (gastroesophageal reflux disease) Dyslipidemia Acquired hammertoes of both feet Peripheral neuropathy Surgical History Hx of foot surgery History of esophagogastroduodenoscopy (EGD) Hx of colonoscopy History of ankle surgery History of hammertoe correction History of skin ulcer Hx of cholecystectomy Family History Father Diabetes mellitus HTN (hypertension) Myocardial infarction Hyperlipidemia Mother Lymphoma Hyperlipidemia Social History Household Members: Spouse Housing: Condominium Are you a primary prompt care rn to a significant other at home: No Do you presently have visiting nurse or other home services: No Alcohol intake: current Alcohol intake frequency: a few times a month Patient Tobacco Use Status: Former Tobacco user Quit Date: 1994 Tobacco use type: Cigarette e-Cigarette/Vaping Use: Never Used Second Hand Smoke Exposure: Yes Advance Directives Date on File: 02/10/17 Current occupational status: employed Current occupation: [employer] Current occupational exposures/hazards: No Cognitive needs: No Hearing needs: No Vision needs: No Questionnaire Thrive Questionnaire Date Thrive assessed: 04/25/22 HAVEN-7 AMB Questionnaire HAVEN-7 Date HAVEN - 7 assessed: 04/25/22 Source: Developed by Drs. Jaiden Olvera, Marcelle Munoz, Ihsan Almeida and colleagues, with an educational tip from [employer]. Review of Systems Const Reports as per HPI Physical exam (Primary Care) Vital Signs: Last Vital Signs Pulse 87 09/24/23 09:00 BP 130/96 H 09/24/23 09:00 Pulse Ox 97 09/24/23 09:00 Oxygen Delivery Method Room Air 09/24/23 09:00 Tobacco/Smoking Status: Tobacco use Status Tobacco use date assessed 09/24/23 09/24/23 09:03 Patient Tobacco Use Status Former Tobacco user 09/24/23 08:50 Tobacco use type Cigarette 09/24/23 08:50 e-Cigarette/Vaping Use Never Used 09/24/23 08:50 Thrive Assessment: Date of Thrive Assessment Date Thrive assessed 04/25/22 09/24/23 08:50 Const General: cooperative Orientation/consciousness: patient oriented x3 Resp Effort & Inspection: normal respiratory effort Auscultation: clear to auscultation bilaterally Cardio Palpation: normal PMI Rate: regular rate Rhythm: regular rhythm Heart sounds: S1 normal heart sound present, S2 normal heart sound present and Murmur heart sound present (very faint) systolic Neuro General: patient oriented x3 Extrem Other: bilat feet: no sensation with use of monofilament, plantar aspect of left big toe with small scab and ? blister formation Psych Other: tearful Appearance: grossly normal Mental Status: mental status grossly normal Speech and movement: Normal speech and movement present Attitude: cooperative Thought process: Normal thought process present Thought content: Normal thought content present Insight: Good insight present (Psych) Judgement: Good judgement present (Psych) Results AMB Hemoglobin A1c AMB Hemoglobin A1c 8.8 % Last Edit by FRANDY Bang on 09/24/23 09:17 Results Reviewed Results Reviewed: Laboratory Last Values Hgb A1c (Clinic) 8.8 % (4.0-6.0) H 09/24/23 09:16 Assessment and Plan Assessment & Plan (1) Microalbuminuria: Code(s): R80.9 - Proteinuria, unspecified Plan: Referred to nephrology Plan The patient agreed to the use of a registered medical assistant for this encounter. Scribed for KEV Rodrigues by Malaika Daily registered medical assistant, on 09/24/2023 at 09:10 EST. Orders: Orders AMB Hemoglobin A1c Today E11.9 - Type 2 diabetes mellitus without complications Referrals Nephrology Referral R80.9 - Proteinuria, unspecified Medications: New empagliflozin (Jardiance) 10 mg PO DAILY 30 tabs 3RF Changed From lisinopril 5 mg PO DAILY 90 days 90 tabs 1RF To lisinopril 10 mg PO DAILY 90 days 90 tabs 1RF Refilled flash glucose scanning reader (FreeStyle Griffin 2 [place]) 4 times a day testing 1 ea 4RF E11.9 - Type 2 diabetes mellitus without complications flash glucose sensor (FreeStyle Griffin 2 Sensor kit) 4 times a day testing 1 ea 10RF E11.9 - Type 2 diabetes mellitus without complications Coding Level of Care Code Est Pt Level 3 (99541) Diagnoses Microalbuminuria R80.9
[2023-09-24 09:00] VITALS: BP 130/96; PULSE 87; O2SAT 97
== END 2023-09-24 09:51 | disposition home or self-care (01) ==
PROVIDERS: PCP Nurse Practitioner Family; Visit Provider Nurse Practitioner Family
DX: E11.9 Type 2 diabetes mellitus without complications (principal); R80.9 Proteinuria, unspecified
CPT/HCPCS: 83036; 99213

== ENCOUNTER 2023-10-13 16:10 | Outpatient (AMB) | payer BC, SELFPAY ==
[2023-10-13 16:11] VITALS: BP 130/72; PULSE 88; O2SAT 98; BMI 28.5
--- NOTE | 2023-10-13 16:11 | HO.NEPHOV ---
HPI HPI Comments History of Present Illness Details 63 yr old woman with newly diagnosed DM ( 2022) and overweight referred for microalbumuria Currently on Lisinopril [facility] Medical History Cellulitis of left leg COVID-19 vaccine series completed Diabetes Arthritis Anxiety Hx of osteomyelitis History of cholelithiasis GERD (gastroesophageal reflux disease) Dyslipidemia Acquired hammertoes of both feet Peripheral neuropathy Surgical History Hx of foot surgery History of esophagogastroduodenoscopy (EGD) Hx of colonoscopy History of ankle surgery History of hammertoe correction History of skin ulcer Hx of cholecystectomy Family History Father Diabetes mellitus HTN (hypertension) Myocardial infarction Hyperlipidemia Mother Lymphoma Hyperlipidemia Social History Household Members: Spouse [facility] Are you a primary palliative care physician to a significant other at home: No Do you presently have visiting nurse or other home services: No Alcohol intake: current Alcohol intake frequency: a few times a month Patient Tobacco Use Status: Former Tobacco user Quit Date: 1994 Tobacco use type: Cigarette e-Cigarette/Vaping Use: Never Used Second Hand Smoke Exposure: Yes Advance Directives Date on File: 02/10/17 Current occupational status: employed Current occupation: [employer] Current occupational exposures/hazards: No Cognitive needs: No Hearing needs: No Vision needs: No Vital Signs 10/13/23 16:11 Height 5 ft 7 in Weight 182 lb BMI 28.5 BP 130/72 Blood Pressure Location Lt brachial Position Sitting Pulse 88 Pulse Source Pulse Oximeter Pulse Oximetry (%) 98 Oxygen Delivery Method Room Air Physical Exam Vital Signs: Last Vital Signs Pulse 88 10/13/23 16:11 BP 130/72 10/13/23 16:11 Pulse Ox 98 10/13/23 16:11 Oxygen Delivery Method Room Air 10/13/23 16:11 BMI result Body Mass Index 28.5 Assessment & Plan Assessment & Plan (1) Microalbuminuria: Code(s): R80.9 - Proteinuria, unspecified (2) Serum calcium elevated: Code(s): E83.52 - Hypercalcemia Plan 63-year-old woman with diabetes mellitus and microalbuminuria. He was found to have mild hypercalcemia. Microalbuminuria is mostly due to underlying diabetic kidney disease. Workup has been ordered as below. As per hypercalcemia I will check the intact PTH and proceed with further workup. For now she will benefit from lisinopril for renal protection. Agree with Svitlana as well. Continue overt nephrotoxic agents She will return to the office after the patient was completed Orders: Orders Total Protein Urine Random 2 Months R80.9 - Proteinuria, unspecified, E83.52 - Hypercalcemia Parathyroid Hormone Intact 2 Months R80.9 - Proteinuria, unspecified, E83.52 - Hypercalcemia Electrolytes 2 Months R80.9 - Proteinuria, unspecified, E83.52 - Hypercalcemia UA and rflx microscopic 2 Months R80.9 - Proteinuria, unspecified, E83.52 - Hypercalcemia Creatinine Urine 2 Months R80.9 - Proteinuria, unspecified, E83.52 - Hypercalcemia Phosphorus 2 Months R80.9 - Proteinuria, unspecified, E83.52 - Hypercalcemia Blood Urea Nitrogen 2 Months R80.9 - Proteinuria, unspecified, E83.52 - Hypercalcemia Creatinine 2 Months R80.9 - Proteinuria, unspecified, E83.52 - Hypercalcemia Calcium 2 Months R80.9 - Proteinuria, unspecified, E83.52 - Hypercalcemia Medications: Discontinued celecoxib Discontinued Reason: Doctor's Order 50 mg PO BID 30 days PRN 60 caps 0RF pain Coding Level of Care Code New Pt Level 4 (03765) Diagnoses Microalbuminuria R80.9 Serum calcium elevated E83.52 Results Reviewed Nephrology Results: Hgb 14.7 g/dl (12.0-16.0) 09/20/23 WBC 7.6 X10*3/uL (4.8-10.8) 09/20/23 Plt Count 431 X10*3/uL (160-400) H 09/20/23 Sodium 146 mmol/L (135-145) H 09/20/23 Potassium 4.3 mmol/L (3.3-5.1) 09/20/23 Chloride 102 mmol/L (96-108) 09/20/23 Carbon Dioxide 25 mmol/L (22-29) 09/20/23 BUN 9 mg/dL (9-16) 09/20/23 Creatinine 0.75 mg/dL (0.5-1.4) 09/20/23 Calcium 10.3 mg/dL (8.4-10.2) H 09/20/23 Urine Protein 30 (1+) mg/dL (Neg-Trace) H 09/20/23 Urine Creatinine 363.96 mg/dL 09/20/23
== END 2023-10-13 16:33 | disposition home or self-care (01) ==
PROVIDERS: PCP Nurse Practitioner Family; Visit Provider Internal Medicine Hypertension Specialist
DX: R80.9 Proteinuria, unspecified (principal); E83.52 Hypercalcemia
CPT/HCPCS: 99204

== ENCOUNTER → 2023-10-13 16:10 | Outpatient (BNVA) | payer BC, SELFPAY | PROVIDERS: PCP Nurse Practitioner Family; Visit Provider Internal Medicine Hypertension Specialist ==

== ENCOUNTER 2024-05-10 15:10 | Outpatient (AMB) | payer BC, SELFPAY ==
--- NOTE | 2024-05-10 15:14 | MHC.OFFVIS ---
Vital Signs 05/10/24 15:28 Height 5 ft 7 in Weight 183 lb BMI 28.7 Pulse 90 Pulse Source Pulse Oximeter Temp 97.9 F Temp Source Oral Pulse Oximetry (%) 98 Oxygen Delivery Method Room Air Intake Visit Reasons: reff melina glocowski/osteo toe doxycicline 100 Allergies No Known Allergies [No Known Allergies*] Allergy (Verified 05/19/24 08:29) HPI HPI reff melina glocowski/osteo toe doxycicline 100: Details: She has great toe OM ,left foot. She has chronic swelling. [facility] Medical History Cellulitis of left leg COVID-19 vaccine series completed Diabetes Arthritis Anxiety Hx of osteomyelitis History of cholelithiasis GERD (gastroesophageal reflux disease) Dyslipidemia Acquired hammertoes of both feet Peripheral neuropathy Surgical History Hx of foot surgery History of esophagogastroduodenoscopy (EGD) Hx of colonoscopy History of ankle surgery History of hammertoe correction History of skin ulcer Hx of cholecystectomy Family History Father Diabetes mellitus HTN (hypertension) Myocardial infarction Hyperlipidemia Mother Lymphoma Hyperlipidemia Social History Household Members: None [facility] Are you a primary health care analyst to a significant other at home: No Do you presently have visiting nurse or other home services: No Alcohol intake: current Alcohol intake frequency: holidays/special occasions only Patient Tobacco Use Status: Former Tobacco user Tobacco use type: Cigarette e-Cigarette/Vaping Use: Never Used Second Hand Smoke Exposure: Yes Advance Directives Date on File: 02/10/17 service: No Current occupational status: employed Current occupation: [employer] Current occupational exposures/hazards: No Cognitive needs: No Hearing needs: No Vision needs: No Review of Systems Const All systems reviewed & are unremarkable except as noted in HPI and below Physical Exam Vital Signs: Last Vital Signs Temp 97.9 F 05/10/24 15:28 Pulse 90 05/10/24 15:28 Pulse Ox 98 05/10/24 15:28 Oxygen Delivery Method Room Air 05/10/24 15:28 BMI result Body Mass Index 28.7 Const Other: General: cooperative Orientation/consciousness: patient oriented x3 HEENT Head: Yes normal to inspection Mouth: Normal oral and palatal mucosa present Eyes General: appearance normal, both eyes and all related structures Pupils: Equal, round and reactive pupils present Resp Effort & Inspection: normal respiratory effort Cardio Rate: regular rate Rhythm: regular rhythm GI Palpation (GI): Soft to palpation and nontender General: Yes no CVA tenderness Back/Spine/Pelvis Back: no CVA tenderness Skin General skin exam: no rashes or lesions noted Neuro General: patient oriented x3 Cranial nerves: Yes CN's II-XII intact bilaterally and Yes Equal, round and reactive pupils present Extrem Other: toe swelling left great toe Psych Appearance: grossly normal Assessment & Plan Assessment & Plan (1) Osteomyelitis: Comment: patient with some chronic incurable OM foot Code(s): M86.9 - Osteomyelitis, unspecified Category: Medical Plan: Would give po Doxycycline for six weeks, patient not interested in IV therapy. See back prn need. Coding Level of Care Code New Pt Level 3 (88190) Diagnoses Osteomyelitis M86.9
[2024-05-10 15:28] VITALS: PULSE 90; TEMP 36.6; O2SAT 98; BMI 28.7
== END 2024-05-10 16:14 | disposition home or self-care (01) ==
LOC: HO.HID 15:11
PROVIDERS: PCP Nurse Practitioner Family; Visit Provider Internal Medicine
DX: M86.9 Osteomyelitis, unspecified (principal)
CPT/HCPCS: 99203

== ENCOUNTER → 2024-05-10 15:10 | Outpatient (BNVA) | payer BC, SELFPAY | PROVIDERS: PCP Nurse Practitioner Family; Visit Provider Internal Medicine ==

== ENCOUNTER 2024-05-17 18:07 | Inpatient (IN) | payer BC, SELFPAY ==
--- NOTE | ~2024-05-17 | XR_ITS ---
EXAMINATION: XR HIP, LEFT CLINICAL INFORMATION: Fall onto left hip COMPARISON: None available. TECHNIQUE: Frontal view of the pelvis with coned-down frontal and frog-leg lateral views of the left hip. FINDINGS: There is a left subcapital femoral neck fracture seen with mild impaction. The femoral head itself is well seated within the acetabulum. No additional fracture or dislocation in the pelvis or contralateral right hip with degenerative changes seen bilaterally. Unremarkable bowel gas pattern. XR/XR hip LT w PEL1V IMPRESSION: Mildly impacted left subcapital femoral neck fracture. Electronically signed by: Ger Vang MD 05/17/2024 07:14 PM EDT
--- NOTE | ~2024-05-17 | CT_ITS ---
EXAMINATION: CT HEAD WITHOUT CONTRAST CT CERVICAL SPINE WITHOUT CONTRAST CLINICAL INFORMATION: Fall. Head strike. COMPARISON: None available. TECHNIQUE: Contiguous axial imaging was performed from the skull base to vertex without intravenous administration of contrast. Contiguous axial imaging was performed from the upper chest through the skull base without intravenous administration of contrast. Coronal and sagittal reformats were obtained at the acquisition workstation. This CT examination was performed using dose optimization techniques as appropriate, variously including the following: *Automated exposure control. *Adjustment of mA and/or kV according to patient size (this includes techniques or standardized protocols for targeted exams where dose is matched to indication/reason for exam; i.e. extremities or head). *Use of iterative reconstruction technique. DLP: 932 mGy-cm FINDINGS: Head: There is no evidence of acute intracranial hemorrhage or edematous territorial infarction. Knight-white matter differentiation is preserved. Scattered and partially confluent hypoattenuation in the periventricular and deep white matter are consistent with moderate microangiopathy. Proportional prominence of the ventricles and sulcal spaces without evidence of obstructive hydrocephalus. Partially calcified meningioma along the right frontal lobe, measuring up to 1.6 cm. No additional abnormal mass effect or midline shift. No extra-axial fluid collections. Calcific atherosclerotic disease of the intracranial internal carotid and vertebral arteries. No hyperdense vessel sign. No acute soft tissue or osseous abnormalities. The mastoid air cells and visualized paranasal sinuses are clear. Cervical Spine: The atlantooccipital and atlantoaxial articulations remain well aligned. Moderate degenerative arthropathy of the atlantodental articulation. Straightening of the normal cervical lordosis. Otherwise, there is anatomic alignment of the vertebral bodies and posterior elements. Ankylosis of the right-sided C3-C4 facets. No evidence of acute fracture or subluxation. Mild central endplate depressions throughout. Otherwise, the vertebral body heights are maintained. Moderate degenerative disc disease from C4-C6. Degenerative disc disease at all additional levels. There is no prevertebral soft tissue swelling. The thyroid gland and remaining cervical soft tissues are within normal limits. The lung apices demonstrate no abnormalities. CT/CT cervical spine wo IV con IMPRESSION: 1. No evidence of acute intracranial hemorrhage or edematous territorial infarction. 2. Moderate underlying microangiopathy and generalized cerebral volume loss. 3. No evidence of acute fracture or traumatic subluxation of the cervical spine. 4. 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 Electronically signed by: Neptali So DO 05/17/2024 08:27 PM EDT RP
--- NOTE | ~2024-05-17 | XR_ITS ---
EXAMINATION: PORTABLE CHEST 1 VIEW CLINICAL INFORMATION: fall. COMPARISON: 12/04/2018. TECHNIQUE: Portable frontal view of the chest was obtained. FINDINGS: The lungs are mildly hypoexpanded. No focal infiltrate, effusion, edema, or pneumothorax. Cardiac and mediastinal silhouettes are within normal limits for technique. No acute bony abnormality seen. XR/XR chest 1V IMPRESSION: No evidence of acute disease. Electronically signed by: Ger Vang MD 05/17/2024 07:13 PM EDT RP
--- NOTE | ~2024-05-17 | FL_ITS ---
EXAMINATION: FLUOROSCOPY GUIDANCE FOR NEEDLE PLACEMENT CLINICAL INFORMATION: Left hip fracture. COMPARISON: Left hip 05/17/2024. TECHNIQUE: Fluoroscopy and spot films provided in OR to Dr. Willy Che. FINDINGS: 2 screws are seen extending through the left femoral neck. FLUOROSCOPY TIME: 0.7 minutes. DOSE AREA PRODUCT: 0.228 mGym2. 13.1 mGy. FL/FL guidance in OR IMPRESSION: Fluoroscopy and spot films provided during left hip pinning. Electronically signed by: Jos Rodriguez MD 05/19/2024 08:51 PM EDT
[2024-05-17 18:11] VITALS: BP 160/115; PULSE 71; RESP 16; TEMP 36.7; O2SAT 98; BMI 27.9
--- NOTE | 2024-05-17 18:14 | ED_ITS ---
HPI - Extremity Injury (Lower) General Chief Complaint: Fall Stated Complaint: LT hip inj s/p fall Time Seen by Provider: 05/17/24 18:28 Source: patient Mode of arrival: wheelchair Limitations: no limitations History of Present Illness HPI Narrative: Patient is a 63-year-old female who presents emergency department for evaluation after mechanical fall. Reports that she was jumping around with her nephew her shoe got caught and she ultimately fell landing onto her left side. She admits to head strike but no loss of consciousness. She denies use of anticoagulants. Since the fall she has been unable to bear weight on the left leg. Denies numbness or tingling to the leg. Denies any headache. Related Data Home Medications ?Medication ?Instructions ?Recorded ?Confirmed jlgjjnst-kuapglm-bbbw-iron 18 tab PO 02/26/22 06/03/23 mg-FA 400 mcg-vit K 25 mcg tablet (One-A-Day Women's Complete(with vit K)) gabapentin 400 mg capsule 400 mg PO BEDTIME PRN 10/13/23 pantoprazole 20 mg tablet,delayed 20 mg PO DAILY PRN 10/13/23 release doxycycline hyclate 100 mg capsule 100 mg PO DAILY 05/10/24 Previous Rx's ?Medication ?Instructions ?Recorded alcohol swabs (Alcohol Pads) 1 pad topical .daily #100 ea 11/14/21 blood sugar diagnostic (OneTouch #100 ea 11/14/21 Ultra Test strips) blood-glucose meter (OneTouch #1 ea 11/14/21 Ultra2 Meter) lancets (OneTouch UltraSoft #100 ea 11/14/21 Lancets) atorvastatin 10 mg tablet 10 mg PO DAILY #90 tabs 04/03/23 lisinopril 10 mg tablet 10 mg PO DAILY 90 days #90 tabs 09/24/23 dapagliflozin propanediol 5 mg 5 mg PO DAILY #30 tabs 09/25/23 tablet (Farxiga) metformin 1,000 mg tablet 1,000 mg PO BID 90 days #180 tabs 12/26/23 Dexcom G7 Sensor (blood-glucose #9 ea 01/30/24 sensor) Allergies Allergy/AdvReac Type Severity Reaction Status Date / Time No Known Allergies Allergy Verified 05/17/24 18:11 [No Known Allergies*] Review of Systems 2 Review of Systems: Yes all other systems are reviewed and are negative PMFSH Past Medical History Attestation statement: The following information was validated with the patient. Source: old records reviewed Medical History Cellulitis of left leg COVID-19 vaccine series completed Diabetes Arthritis Anxiety Hx of osteomyelitis History of cholelithiasis GERD (gastroesophageal reflux disease) Dyslipidemia Acquired hammertoes of both feet Peripheral neuropathy Surgical History Hx of foot surgery History of esophagogastroduodenoscopy (EGD) Hx of colonoscopy History of ankle surgery History of hammertoe correction History of skin ulcer Hx of cholecystectomy Family History Family History Father Diabetes mellitus HTN (hypertension) Myocardial infarction Hyperlipidemia Mother Lymphoma Hyperlipidemia Social History Social History Household Members: Spouse Housing: [facility] Are you a primary nurse wound care to a significant other at home: No Do you presently have visiting nurse or other home services: No Alcohol intake: current Alcohol intake frequency: holidays/special occasions only Patient Tobacco Use Status: Former Tobacco user Tobacco use type: Cigarette Smoked in Last 30 Days: No e-Cigarette/Vaping Use: Never Used Second Hand Smoke Exposure: Yes Use of substances other than those prescribed or required for medical reasons: No Advance Directives: Yes Advance Directives on File: Yes Advance Directives Date on File: 02/10/17 Do you have a plan to hurt others: No Plan Nutrition Risks: No Nutritional Risk Current occupational status: employed Current occupation: [employer] Current occupational exposures/hazards: No Cognitive needs: No Hearing needs: No Vision needs: No Physical Exam 2 Vital Signs: Vital Signs: Last Vital Signs Temp 98.0 F 05/17/24 18:11 Pulse 84 05/17/24 21:46 Resp 16 05/17/24 21:46 BP 155/65 H 05/17/24 21:46 Pulse Ox 96 05/17/24 21:46 O2 Del Method Room Air 05/17/24 21:46 BMI result Body Mass Index 27.9 Appearance: Alert.?Oriented to person, place and time. No acute distress.?Normal affect. Head: normocephalic, atraumatic Eyes: Pupils equal, round and reactive to light.? ENT: Pharynx normal.?? Neck: Normal inspection.? Neck supple.?? CVS: Heart sounds normal. Normal heart rate and rhythm.? Pulses normal.?? Respiratory: No respiratory distress.? Lung sounds clear to auscultation bilaterally?? Abdomen: Soft and non-tender. Normoactive bowel sounds. Skin: Skin warm and dry.? Normal skin color.? Extremities: No lower extremity edema.? No calf ttp?2+ DP/PT pulse bilaterally Neuro: Moves all extremities spontaneously. Sensation intact bilaterally. CN II- XII intact. No focal neuro deficits. Course Course Course Narrative: This is a Rapid Medical Examination (RME) performed by Ralf Farr PA-C in triage. Full HPI, ROS, assessment and treatment plan per primary provider in the Main ED. 63 yo female hx of GERD, DM w/ neuropathy, anxiety here for eval of 8/10 right hip pain s/p mechanical fall [employer]. reports jumping around on her deck with her grandchild when her shoe got caught, causing her to fall onto her right hip. admits to head strike. no LOC. no AC. unable to bear weight on RLE. + limited exam in triage. pt in wheel chair. 2+ pt/dp pulse. no palpable skull fx. exam nonfocal. AOX3. Plan: xr, ct Reevaluation(s) Reevaluation #1: I Reviewed CT imaging noted to have a hyperdensity to the right frontal region, appears to bright to be ICH, pending radiologist impression. I have reviewed XR imaging, has impacted left subcapital femoral neck fracture for which I will consult with Orthopedics. Reevaluation #2: Radiologist impression revealing no acute intracranial hemorrhage or edematous territorial infarct, the body includes a partially calcified meningioma along the right frontal lobe measuring up to 1.6 cm no mass effect or midline shift. No cervical spine acute fracture or subluxation. Consulted Orthopedics, Dr. Zabala recommends NPO and admission to medicine service, orthopedic consult in the morning. Spoke with Dr. Mena, admitted to medicine service Time: 21:08 Medications Administered Generic Name Dose Route Start Last Admin Trade Name Freq PRN Reason Stop Dose Admin Doxycycline Hyclate 100 mg/ 250 mls @ 166.67 mls/hr 05/17/24 22:30 05/18/24 00:18 Sodium Chloride IV Infused Q12H MARJORIE Infusion Insulin Human Lispro 0 unit 05/17/24 21:30 05/17/24 21:43 Insulin Lispro 100 Unit/Ml 3 Ml Vial SUBCUT 2 unit Q6H [facility] Administration Protocol Sodium Chloride 3 ml 05/18/24 00:00 05/18/24 00:18 0.9 % Sodium Chloride Flush 3 Ml Syringe IVFLUSH Not Given QSHIFT MARJORIE Discontinued Medications Generic Name Dose Route Start Last Admin Trade Name Freq PRN Reason Stop Dose Admin Morphine Sulfate 4 mg 05/17/24 19:57 05/17/24 20:47 Morphine Sulfate 4 Mg/Ml Cartridge IVPUSH 05/17/24 19:58 4 mg ONCE ONE Administration Protocol Ondansetron HCl 4 mg 05/17/24 19:58 05/17/24 20:47 Ondansetron Hcl 4 Mg/2 Ml Vial IVPUSH 05/17/24 19:59 4 mg ONCE ONE Administration Medical Decision Making Medical Decision Making [facility] Narrative: Patient is a 63-year-old female with past medical history of GERD, DM w/ neuropathy, anxiety, dyslipidemia, arthritis, osteomyelitis of toes currently on doxycycline orally, who presents emergency department for evaluation after mechanical fall with head strike no loss of consciousness and resultant left hip pain. Plan to obtain XR and CT head/cervical spine to evaluate for injury. She appears significantly uncomfortable, provide analgesic. Extremities are neurovascularly intact distally. No focal neurological deficits. Differential Diagnosis Differential Diagnoses: The differential diagnosis associated with the presentation includes (Fracture, dislocation, ICH, SDH, subluxation) Admission/Observation Consideration of admission/observation: Escalation of care including admission/observation considered Consult Healthcare Provider Management of the patient was discussed with: Hospitalist and Tankage Supervisor (Orthopedic) Lab Data [facility] Lab Attestation statement: I reviewed the patient's lab results. 05/17/24 20:39 05/17/24 20:39 Labs: Lab Results 05/17/24 05/17/24 Range/Units 20:39 20:44 WBC 12.6 H (4.8-10.8) X10*3/uL RBC 4.57 (4.20-5.50) X10*6/uL Hgb 13.5 (12.0-16.0) g/dl Hct 38.8 (37.0-47.0) % MCV 84.9 (80.0-98.0) fL MCH 29.5 (27.0-33.0) pg MCHC 34.8 (31.0-35.0) g/dl RDW 13.8 (11.0-16.0) % Plt Count 353 (160-400) X10*3/uL MPV 9.1 L (9.4-12.3) fL Immature Gran % (Auto) 0.6 H (0.0-0.4) % Neut % (Auto) 72.3 (45-73) % Lymph % (Auto) 20.1 (20-40) % [place] % (Auto) 5.9 (2-11) % Eos % (Auto) 0.6 (0-4) % Baso % (Auto) 0.5 (0-2) % Lymph # (Auto) 2.5 (1.2-4.9) X10*3/uL [place] # (Auto) 0.8 (0.1-1.2) X10*3/uL Eos # (Auto) 0.1 (0.0-0.4) X10*3/uL Baso # (Auto) 0.1 (0.0-0.2) X10*3/uL Abs Immat Gran (auto) 0.08 H (0.00-0.03) X10*3/uL Absolute Neuts (auto) 9.1 H (2.0-8.3) x10*3/uL Absolute Nucleated RBC 0.000 (0.0-0.012) X10*3/uL Nucleated RBC % (auto) 0.0 (0.0-0.2) /100WBC PT 12.1 (11.1-13.3) SEC INR 1.0 (0.9-1.1) Sodium 140 (135-145) mmol/L Potassium 3.8 (3.3-5.1) mmol/L Chloride 109 H (96-108) mmol/L Carbon Dioxide 19 L (22-29) mmol/L Anion Gap 16 (12-20) BUN 13 (9-16) mg/dL Creatinine 0.71 (0.5-1.4) mg/dL Estim Creat Clear Calc 88.7 Estimated GFR > 60 Random Glucose 158 H (60-115) mg/dL Calcium 9.7 (8.4-10.2) mg/dL Total Bilirubin 0.4 (0.0-1.0) mg/dL AST 26 (5-31) U/L ALT 35 H (0-31) U/L Alkaline Phosphatase 63 (39-117) U/L Total Protein 7.5 (6.5-8.0) g/dL Albumin 4.3 (3.5-5.0) g/dL Blood Type A Positive Antibody Screen NEGATIVE Independent Interpretation I performed an independent interpretation of an: Plain X-Ray (Left femoral head fracture) and CT Scan (Reviewed CT imaging noted to have a hyperdensity to the right frontal region, appears to bright to be ICH) Radiology Impression Discussion of test interpretation with radiology: I have reviewed the radiologist's reading. Radiologist Impression: XR/XR hip LT w PEL1V IMPRESSION: Mildly impacted left subcapital femoral neck fracture. XR/XR chest 1V IMPRESSION: No evidence of acute disease. CT/CT head/brain wo IV con IMPRESSION: 1. No evidence of acute intracranial hemorrhage or edematous territorial infarction. 2. Moderate underlying microangiopathy and generalized cerebral volume loss. 3. No evidence of acute fracture or traumatic subluxation of the cervical spine. 4. 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 Independent Historian Clinical information obtained from an independent historian. History obtained from or confirmed by: Other (Son) External Record Review External record reviewed: Outpatient record Critical Care Time Critical Care Time Critical Care Time: Yes Total Critical Care Time: 35 Attestation: I personally attest to this critical care time spent taking care of the patient exclusive of all other billable procedures was approximately 35 minutes including initial evaluation of patient, ordering tests, x-ray interpretation, IV morphine and re-evaluation,, medical consultation, documentation, re- evaluation. Discharge Plan Discharge Clinical Impression: Femoral neck fracture Qualifiers: Encounter type: initial encounter Fracture type: closed Laterality: left Q ualified Code(s): S72.002A - Fracture of unspecified part of neck of left femur, initial encounter for closed fracture Patient Disposition: Admitted As Inpatient
[2024-05-17 20:44] LABS: MANUAL DIFF FLAG NO
[2024-05-17 20:46] LABS: Basophils Absolute Auto 0.1 X10*3/uL (0.0-0.2); Basophils Percent Auto 0.5 % (0-2); Eosinophils Absolute Auto 0.1 X10*3/uL (0.0-0.4); Eosinophils Percent Auto 0.6 % (0-4); Hematocrit 38.8 % (37.0-47.0); Hemoglobin 13.5 g/dl (12.0-16.0); Imm Gran Abs Auto 0.08 X10*3/uL (0.00-0.03); Imm Gran Pct Auto 0.6 % (0.0-0.4); Lymphocytes Absolute Auto 2.5 X10*3/uL (1.2-4.9); Lymphocytes Percent Auto 20.1 % (20-40); Mean Corpuscular HGB Conc 34.8 g/dl (31.0-35.0); Mean Corpuscular Hemoglobin 29.5 pg (27.0-33.0); Mean Corpuscular Volume 84.9 fL (80.0-98.0); Mean Platelet Volume 9.1 fL (9.4-12.3); Monocytes Absolute Auto 0.8 X10*3/uL (0.1-1.2); Monocytes Percent Auto 5.9 % (2-11); Neutrophils Absolute Auto 9.1 x10*3/uL (2.0-8.3); Neutrophils Percent Auto 72.3 % (45-73); Platelet Count 353 X10*3/uL (160-400); Red Blood Count 4.57 X10*6/uL (4.20-5.50); Red Cell Distribution Width 13.8 % (11.0-16.0); White Blood Count 12.6 X10*3/uL (4.8-10.8)
[2024-05-17] MEDS: ondansetron HCL 4 MG/2 ML VIAL IVPUSH (20:47)
[2024-05-17] MEDS: Morphine Sulfate 4 MG/ML CARTRIDGE IVPUSH (20:47)
[2024-05-17 20:51] LABS: Prothrombin Time 12.1 SEC (11.1-13.3)
[2024-05-17 21:02] LABS: Alanine Aminotransferase 35 U/L (0-31); Albumin Level 4.3 g/dL (3.5-5.0); Alkaline Phosphatase 63 U/L (39-117); Anion Gap 16 (12-20); Aspartate Amino Transferase 26 U/L (5-31); Bilirubin Total 0.4 mg/dL (0.0-1.0); Blood Urea Nitrogen 13 mg/dL (9-16); Calcium 9.7 mg/dL (8.4-10.2); Carbon Dioxide 19 mmol/L (22-29); Chloride 109 mmol/L (96-108); Creatinine Clr Calc Pharmacy 88.7; Estimated Glomerular Filt Rate > 60; Glucose Random 158 mg/dL (60-115); Potassium 3.8 mmol/L (3.3-5.1); Sodium 140 mmol/L (135-145); Total Protein 7.5 g/dL (6.5-8.0)
--- NOTE | 2024-05-17 21:20 | PM.IMHP ---
History of Present Illness Date of Service: 05/17/24 Chief Complaint: Fall This is a 63-year-old female with pertinent history of hqc-hnoggmp-kwpasnhrh diabetes mellitus, hypertension, mixed hyperlipidemia, gastroesophageal reflux disease, peripheral neuropathy, osteomyelitis of toes who presents to the emergency department for evaluation after a fall. Patient states she was playing with her nephew when her sandals got stuck and she fell on her left side. She did hit her head. No loss of consciousness prior to the fall. No chest pain or palpitations prior to the fall. No rhythmic jerking movement of extremities. Patient is not on any blood thinners. No fever, chills, chest pain, palpitations, shortness of breath, abdominal pain, changes in urinary or bowel habits. Patient was diagnosed with osteomyelitis of toes about 3 weeks ago and is on doxycycline 100 mg twice daily. In the emergency department, imaging with left femoral neck fracture and Orthopedic surgery was consulted who requested admission to medicine team. Review of Systems Constitutional: Constitutional: Reports no additional constitutional complaints Cardiovascular: Cardiovascular: Reports no additional cardiovascular complaints Respiratory: Respiratory: Reports no additional respiratory complaints Gastrointestinal: Gastrointestinal: Reports no additional gastrointestinal complaints Genitourinary: Genitourinary: Reports no additional female genitourinary complaints Musculoskeletal: Musculoskeletal: Reports [facility]ralgias [facility] Medical History Cellulitis of left leg COVID-19 vaccine series completed Diabetes Arthritis Anxiety Hx of osteomyelitis History of cholelithiasis GERD (gastroesophageal reflux disease) Dyslipidemia Acquired hammertoes of both feet Peripheral neuropathy Family History Father Diabetes mellitus HTN (hypertension) Myocardial infarction Hyperlipidemia Mother Lymphoma Hyperlipidemia Surgical History Hx of foot surgery History of esophagogastroduodenoscopy (EGD) Hx of colonoscopy History of ankle surgery History of hammertoe correction History of skin ulcer Hx of cholecystectomy Social History Household Members: Spouse Housing: Condominium Are you a primary manager intensive care to a significant other at home: No Do you presently have visiting nurse or other home services: No Alcohol intake: current Alcohol intake frequency: holidays/special occasions only Patient Tobacco Use Status: Former Tobacco user Tobacco use type: Cigarette Smoked in Last 30 Days: No e-Cigarette/Vaping Use: Never Used Second Hand Smoke Exposure: Yes Use of substances other than those prescribed or required for medical reasons: No Advance Directives: Yes Advance Directives on File: Yes Advance Directives Date on File: 02/10/17 Do you have a plan to hurt others: No Plan Nutrition Risks: No Nutritional Risk Current occupational status: employed Current occupation: [employer] Current occupational exposures/hazards: No Cognitive needs: No Hearing needs: No Vision needs: No Meds Allergies Allergy/AdvReac Type Severity Reaction Status Date / Time No Known Allergies Allergy Verified 05/17/24 18:11 [No Known Allergies*] Home Medications ?Medication ?Instructions ?Recorded ?Confirmed ?Last Taken ?Type eiwipzhd-ptspjot-elxw-iron 18 tab PO 02/26/22 06/03/23 Unknown History mg-FA 400 mcg-vit K 25 mcg tablet (One-A-Day Women's Complete(with vit K)) gabapentin 400 mg capsule 400 mg PO BEDTIME PRN 10/13/23 Unknown History pantoprazole 20 mg tablet,delayed 20 mg PO DAILY PRN 10/13/23 Unknown History release doxycycline hyclate 100 mg capsule 100 mg PO DAILY 05/10/24 Unknown History Physical Exam Vital Signs and Narrative: Vital Signs: Last Vital Signs Temp 98.0 F 05/17/24 18:11 Pulse 71 05/17/24 18:11 Resp 16 05/17/24 18:11 BP 160/115 H 05/17/24 18:11 Pulse Ox 98 05/17/24 18:11 O2 Del Method Room Air 05/17/24 18:11 BMI result Body Mass Index 27.9 Middle-aged female lying in bed in no distress Neck supple, no JVD Regular rate and rhythm, S1-S2 heard Regular breath sounds bilaterally, no wheezing or crackles appreciated Abdomen soft nontender, no guarding, no rigidity Patient is awake, alert and oriented to self, place, time and person ; no focal motor deficit Psych: Normal mood Limited left lower extremity movement due to pain Results Labs 05/17/24 20:39 05/17/24 20:39 Labs: Laboratory Results - last 24 hr 05/17/24 20:39 MCV 84.9 MCH 29.5 MCHC 34.8 RDW 13.8 Plt Count 353 MPV 9.1 L Immature Gran % (Auto) 0.6 H Neut % (Auto) 72.3 Lymph % (Auto) 20.1 [place] % (Auto) 5.9 Eos % (Auto) 0.6 Baso % (Auto) 0.5 Lymph # (Auto) 2.5 [place] # (Auto) 0.8 Eos # (Auto) 0.1 Baso # (Auto) 0.1 Abs Immat Gran (auto) 0.08 H Absolute Neuts (auto) 9.1 H Absolute Nucleated RBC 0.000 Nucleated RBC % (auto) 0.0 PT 12.1 INR 1.0 Anion Gap 16 Estim Creat Clear Calc 88.7 Estimated GFR > 60 Random Glucose 158 H Calcium 9.7 Total Bilirubin 0.4 AST 26 ALT 35 H Alkaline Phosphatase 63 Total Protein 7.5 Albumin 4.3 Imaging Radiologist's Impressions: Impressions Cervical Spine CT 05/17/24 18:12 IMPRESSION: 1. No evidence of acute intracranial hemorrhage or edematous territorial infarction. 2. Moderate underlying microangiopathy and generalized cerebral volume loss. 3. No evidence of acute fracture or traumatic subluxation of the cervical spine. 4. 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 Electronically signed by: Neptali So DO 05/17/2024 08:27 PM EDT RP Chest X-Ray 05/17/24 18:12 IMPRESSION: No evidence of acute disease. Electronically signed by: Ger Vang MD 05/17/2024 07:13 PM EDT RP Hip/Pelvis X-Ray 05/17/24 18:12 IMPRESSION: Mildly impacted left subcapital femoral neck fracture. Electronically signed by: Ger Vang MD 05/17/2024 07:14 PM EDT RP Head CT 05/17/24 19:08 IMPRESSION: 1. No evidence of acute intracranial hemorrhage or edematous territorial infarction. 2. Moderate underlying microangiopathy and generalized cerebral volume loss. 3. No evidence of acute fracture or traumatic subluxation of the cervical spine. 4. 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 Electronically signed by: Neptali So DO 05/17/2024 08:27 PM EDT Assessment and Plan (1) Fracture of femoral neck, left: Status: Acute Plan This is a 63-year-old female with pertinent history of qeh-vfelbwz-tgcoyyqax diabetes mellitus, hypertension, mixed hyperlipidemia, gastroesophageal reflux disease, peripheral neuropathy, osteomyelitis of toes who presents to the emergency department for evaluation after a fall. #. Acute left femoral neck fracture due to mechanical fall: Will admit patient with IV opioids p.r.n. for analgesia. NPO after midnight. Consulted Orthopedic surgery, appreciate assistance #. Preoperative risk: RCRI score 0 #. Osteomyelitis of toes: Diagnosed 3 weeks ago and is on doxycycline 100 mg twice daily until end of May. #. Hypertension: Hold lisinopril to prevent postoperative hypotension #. Vhx-yigigll-bwvidwugs diabetes mellitus with peripheral neuropathy: Initiating Accu-Cheks with sliding scale insulin every 6 hours. On gabapentin #. Mixed hyperlipidemia: On statin #. Reactive leukocytosis: No sepsis #. Gastroesophageal reflux disease: On PPI Med rec pending DVT prophylaxis: Mechanical Full code Admit as inpatient and will require two night minimum hospital stay for possible surgical management of femoral neck fracture (as above), which is not possible in a lesser acute setting. Specialist consult pending Quality Stroke Does the patient have a stroke diagnosis?: No VTE Prior VTE?: No VTE Risk Level:: Medical - moderate - high VTE Device Contraindication: N/A - Device Ordered VTE Drug Contraindication: Treatment Not Indicated
[2024-05-17 21:34] LABS: Glucose, Whole Blood 151 mg/dL (60-115)
[2024-05-17] MEDS: Insulin Lispro 100 UNIT/ML 3 ML VIAL SUBCUT (21:43)
[2024-05-17 21:46] VITALS: BP 155/65; PULSE 84; RESP 16; O2SAT 96
--- NOTE | 2024-05-17 22:25 | PC.NURSE ---
Patient changed into hospital attire, purewick applied for patient comfort, patient's L hip elevated on multiple blankets/pillow.
[2024-05-17] MEDS: Doxycycline Hyclate 100 MG in 0.9 % Sodium Chloride 250 ML 166.67 MG IV (22:35)
[2024-05-18] VITALS (8 sets, daily range): BP systolic 129–159; BP diastolic 65–75; PULSE 72–90; RESP 15–20; TEMP 36.4–36.8; O2SAT 88–98; BMI 28.0
[2024-05-18] MEDS: Morphine Sulfate 4 MG/ML CARTRIDGE IVPUSH ×5 (00:50→20:22)
--- NOTE | 2024-05-18 01:06 | PC.NURSE ---
pt reporting 10/10 pain, pt medicated per mar at this time.
--- NOTE | 2024-05-18 03:34 | PC.NURSE ---
pt assisted in bed, pt assisted with a pillow onto right side with pillows, pt reports she is comfortable at this time.
[2024-05-18 04:17] LABS: MANUAL DIFF FLAG NO
[2024-05-18 04:18] LABS: Basophils Absolute Auto 0.1 X10*3/uL (0.0-0.2); Basophils Percent Auto 0.5 % (0-2); Eosinophils Absolute Auto 0.1 X10*3/uL (0.0-0.4); Eosinophils Percent Auto 1.2 % (0-4); Hematocrit 34.8 % (37.0-47.0); Hemoglobin 11.9 g/dl (12.0-16.0); Imm Gran Abs Auto 0.02 X10*3/uL (0.00-0.03); Imm Gran Pct Auto 0.2 % (0.0-0.4); Lymphocytes Absolute Auto 2.5 X10*3/uL (1.2-4.9); Lymphocytes Percent Auto 27.3 % (20-40); Mean Corpuscular HGB Conc 34.2 g/dl (31.0-35.0); Mean Corpuscular Hemoglobin 29.1 pg (27.0-33.0); Mean Corpuscular Volume 85.1 fL (80.0-98.0); Monocytes Absolute Auto 0.6 X10*3/uL (0.1-1.2); Monocytes Percent Auto 6.7 % (2-11); Neutrophils Percent Auto 64.1 % (45-73); Platelet Count 308 X10*3/uL (160-400); Red Blood Count 4.09 X10*6/uL (4.20-5.50); Red Cell Distribution Width 13.8 % (11.0-16.0); White Blood Count 9.3 X10*3/uL (4.8-10.8)
[2024-05-18 04:33] LABS: Anion Gap 13 (12-20); Blood Urea Nitrogen 11 mg/dL (9-16); Carbon Dioxide 21 mmol/L (22-29); Chloride 109 mmol/L (96-108); Creatinine Clr Calc Pharmacy 96.8; Estimated Glomerular Filt Rate > 60; Glucose Random 154 mg/dL (60-115); Potassium 3.7 mmol/L (3.3-5.1); Sodium 139 mmol/L (135-145)
--- NOTE | 2024-05-18 06:00 | PC.NURSE ---
pt reporting 10/10 left hip pain, pt medicated per mar with PRN medications.
--- NOTE | 2024-05-18 06:00 | MHC.EDTECH ---
This pct assumed care of Patient at 0400 ,This pct notice that Patient still has extra linen from ems ,This pct offer to remove linen ,Patient refused and said she does not want to be moved ,Patient had not void since 1700 yesterday ,This Pct did bladder scan Patient had 683 ml in bladder ,RN Yoselyn aware .
--- NOTE | 2024-05-18 06:22 | MHC.EDTECH ---
This pct and RN Yoselyn was able to removed all extra blankets from underneath Patient .
--- NOTE | 2024-05-18 06:31 | PC.NURSE ---
pt unable to urinate with purewick in place, pt bladder scanned for >600ml. per , place vizcarra at this time. 16F vizcarra placed, pt tolerated well, 800ml yellow urine voided at this time. pt assisted in repositioning in bed.
[2024-05-18] MEDS: 0.9 % Sodium Chloride Flush 3 ML SYRINGE IVFLUSH ×3 (07:15→22:56)
--- NOTE | 2024-05-18 07:40 | PC.NURSE ---
this RN resumed care of pt at 0645. a&ox4. vss and up to date. pt verbalizing pain increase in left hip. pt recently medicated w/ PRN pain medication so nothing is able to be administered at this time. pt turned/repositioned to comfort. pt now resting more comfortably/in no apparent distress. pt waiting for ETA for procedure/waiting to have general surgery consult. no sob/wob noted. respirations even/unlabored. plan of care ongoing. call garg placed within reach.
--- NOTE | 2024-05-18 08:15 | PC.NURSE ---
pt turned/repositioned to comfort. respirations remain even/unlabored.
[2024-05-18 08:32] LABS: Glucose, Whole Blood 147 mg/dL (60-115)
--- NOTE | 2024-05-18 09:00 | PC.NURSE ---
pt speaking w/ admitting provider in regards to plan of care at this time. significant other bedside for support. respirations remain even/unlabored. plan of care ongoing. call garg placed within reach.
--- NOTE | 2024-05-18 09:27 | PHA.MEDREC ---
Addendum entered by Ernie Jones 05/18/24 09:48: Verified by [facility] Original Note: Pharmacy Consult ? Medication Reconciliation Pharmacy has completed the medication reconciliation. Confirmed medications with patient. Patient states they are still on Atorvastatin 10mg, Fargixa 5mg, Metoprolol 1000mg and Pantoprazole 20mg and looking in claims those havent been filled in a little bit and when I asked about them she states she is getting them filled mail order through [facility].
[2024-05-18] MEDS: ondansetron HCL 4 MG/2 ML VIAL IVPUSH (10:19)
[2024-05-18] MEDS: Doxycycline Hyclate 100 MG in 0.9 % Sodium Chloride 250 ML 166.67 MG IV ×2 (10:20→22:52)
--- NOTE | 2024-05-18 10:50 | PC.NURSE ---
general surgery consult being completed at this time. pt reporting increase in left hip pain. pt medicated per prn order. effectiveness pending. pt turned/repositioned. family bedside for support. plan of care ongoing.
[2024-05-18] MEDS: lisinopriL 10 MG TABLET PO (11:06)
--- NOTE | 2024-05-18 11:08 | PC.NURSE ---
pt medicated per provider order. medication administered w/ small amount of water per provider approval.
--- NOTE | 2024-05-18 11:41 | HO.PM.IMPN ---
Subjective Subjective Date of Service: 05/18/24 Interval History: No acute issues overnight. Pain control poor per patient Review of Systems Denies chest pain Denies shortness of breath Denies nausea vomiting diarrhea Denies fever chills Physical Exam Vital Signs: Vital Signs: Last Vital Signs Temp 98.3 F 05/18/24 06:06 Pulse 75 05/18/24 06:06 Resp 16 05/18/24 06:06 BP 150/75 H 05/18/24 06:06 Pulse Ox 97 05/18/24 06:06 O2 Del Method Room Air 05/18/24 06:06 BMI result Body Mass Index 27.9 Const: Other: Awake alert no acute distress lying quietly in stretcher Resp: Other: Clear to auscultation bilaterally no rales rhonchi or wheezes Cardio: Other: No S4; positive S1-S2; no S3 murmurs rubs or gallops GI: Other: Soft nontender nondistended normoactive bowel sounds Extrem: Other: No edema bilaterally Objective Data Active Medications Acetaminophen (Acetaminophen 325 Mg Tablet) 650 mg PO Q6H PRN PRN Reason: Pain, Mild (Pain Scale 1-3), fever or headache Atorvastatin Calcium (Atorvastatin Calcium 10 Mg Tablet) 10 mg PO DAILY [facility] Calcium Carbonate (Calcium Carbonate 750 Mg Tab.Chew) 750 mg PO Q4H PRN PRN Reason: Heartburn Glucose (Glucose Gel 15 Gm Gel..Gram.) 15 gm PO Q15M PRN; Protocol PRN Reason: per Hypoglycemia Standing Ord. Dextrose (D10) 250 mls @ 750 mls/hr IV Q15M PRN; Protocol PRN Reason: per Hypoglycemia Standing Ord. Doxycycline Hyclate 100 mg/ (Sodium Chloride) 250 mls @ 166.67 mls/hr IV Q12H [facility] Last Admin: 05/18/24 10:20 Dose: 166.67 mls/hr Documented By: ROSEMARY Insulin Human Lispro (Insulin Lispro 100 Unit/Ml 3 Ml Vial) 0 unit SUBCUT Q6H [facility]; Protocol Last Admin: 05/18/24 08:31 Dose: Not Given Documented By: ROSEMARY Non-Admin Reason: No Insulin Coverage Lisinopril (Lisinopril 10 Mg Tablet) 10 mg PO DAILY [facility]; Protocol Last Admin: 05/18/24 11:06 Dose: 10 mg Documented By: ROSEMARY Magnesium Hydroxide (Milk Of Magnesia 30 Ml Oral.Susp) 30 ml PO DAILY PRN PRN Reason: Constipation Melatonin (Melatonin 3 Mg Tablet) 6 mg PO BEDTIME PRN PRN Reason: Insomnia Morphine Sulfate (Morphine Sulfate 4 Mg/Ml Cartridge) 4 mg IVPUSH Q4H PRN; Protocol PRN Reason: Pain, Severe (Pain Scale 7-10) Last Admin: 05/18/24 10:19 Dose: 4 mg Documented By: ROSEMARY Omeprazole (Omeprazole 20 Mg Capsule.Dr) 20 mg PO DAILY@0630 [facility] Ondansetron HCl (Ondansetron Hcl 4 Mg/2 Ml Vial) 4 mg IVPUSH Q8H PRN PRN Reason: Nausea and Vomiting Last Admin: 05/18/24 10:19 Dose: 4 mg Documented By: ROSEMARY Oxycodone HCl (Oxycodone Hcl Immed Release 5 Mg Tablet) 10 mg PO Q4H PRN PRN Reason: Pain, Moderate(Pain Scale 4-6) Sodium Chloride (0.9 % Sodium Chloride Flush 3 Ml Syringe) 3 ml IVFLUSH [facility] Last Admin: 05/18/24 07:15 Dose: 3 ml Documented By: ROSEMARY Labs 05/18/24 03:59 05/18/24 03:59 Labs: Laboratory Results - last 24 hr 05/17/24 05/17/24 05/17/24 20:39 20:44 21:30 MCV 84.9 MCH 29.5 MCHC 34.8 RDW 13.8 Plt Count 353 MPV 9.1 L Immature Gran % (Auto) 0.6 H Neut % (Auto) 72.3 Lymph % (Auto) 20.1 [place] % (Auto) 5.9 Eos % (Auto) 0.6 Baso % (Auto) 0.5 Lymph # (Auto) 2.5 [place] # (Auto) 0.8 Eos # (Auto) 0.1 Baso # (Auto) 0.1 Abs Immat Gran (auto) 0.08 H Absolute Neuts (auto) 9.1 H Absolute Nucleated RBC 0.000 Nucleated RBC % (auto) 0.0 PT 12.1 INR 1.0 Anion Gap 16 Estim Creat Clear Calc 88.7 Estimated GFR > 60 POC Glucose 151 H Random Glucose 158 H Calcium 9.7 Total Bilirubin 0.4 AST 26 ALT 35 H Alkaline Phosphatase 63 Total Protein 7.5 Albumin 4.3 Blood Type A Positive Antibody Screen NEGATIVE 05/18/24 05/18/24 03:59 08:27 MCV 85.1 MCH 29.1 MCHC 34.2 RDW 13.8 Plt Count 308 MPV 9.0 L Immature Gran % (Auto) 0.2 Neut % (Auto) 64.1 Lymph % (Auto) 27.3 [place] % (Auto) 6.7 Eos % (Auto) 1.2 Baso % (Auto) 0.5 Lymph # (Auto) 2.5 [place] # (Auto) 0.6 Eos # (Auto) 0.1 Baso # (Auto) 0.1 Abs Immat Gran (auto) 0.02 Absolute Neuts (auto) 6.0 Absolute Nucleated RBC 0.000 Nucleated RBC % (auto) 0.0 PT INR Anion Gap 13 Estim Creat Clear Calc 96.8 Estimated GFR > 60 POC Glucose 147 H Random Glucose 154 H Calcium 9.0 D Total Bilirubin AST ALT Alkaline Phosphatase Total Protein Albumin Blood Type Antibody Screen Assessment and Plan (1) Fracture of femoral neck, left: Status: Acute Plan This is a 63-year-old female with pertinent history of qjp-riuwjwd-ufgzhkjok diabetes mellitus, hypertension, mixed hyperlipidemia, gastroesophageal reflux disease, peripheral neuropathy, osteomyelitis of toes who presents to the emergency department for evaluation after a fall. 1.Acute left femoral neck fracture -continue IV morphine as ordered; add oxycodone 10 mg q.4 hours -keep NPO question OR later this afternoon -await formal orthopedic consultation -Preoperative risk: RCRI score 0 2.Osteomyelitis of toes -continue IV doxycycline as ordered 3.Hypertension -acceptable control at present -hold lisinopril -reassess in postoperative. 4.Was-qoqnnrh-bdjmyrvio diabetes mellitus with peripheral neuropathy -lispro correctional scale -adjust as indicated -resume oral agents once able to take p.o. Mechanical Full code Requires ongoing hospitalization for surgical intervention to correct left femoral neck fracture Quality Stroke Does the patient have a stroke diagnosis?: No VTE Prior VTE?: No VTE Risk Level:: Medical - moderate - high VTE Device Contraindication: N/A - Device Ordered VTE Drug Contraindication: Treatment Not Indicated
--- NOTE | 2024-05-18 11:51 | PC.NURSE ---
report given to AZUCENA Luque in short stay at this time.
[2024-05-18] MEDS: oxyCODONE HCl Immed Release 5 MG TABLET 10 MG PO ×2 (12:55→17:03)
--- NOTE | 2024-05-18 13:14 | PM.CNOR ---
History of Present Illness HPI Consult date: 05/18/24 <Erin Mauricio PA-C - Last Filed: 05/18/24 13:15> Chief complaint: Fall <Erin Mauricio PA-C Last Filed: 05/18/24 13:15> [facility] Past Medical History Medical History: Medical History Cellulitis of left leg COVID-19 vaccine series completed Diabetes Arthritis Anxiety Hx of osteomyelitis History of cholelithiasis GERD (gastroesophageal reflux disease) Dyslipidemia Acquired hammertoes of both feet Peripheral neuropathy <Erin Mauricio PA-C - Last Filed: 05/18/24 13:15> Family History Family History: Family History Father Diabetes mellitus HTN (hypertension) Myocardial infarction Hyperlipidemia Mother Lymphoma Hyperlipidemia <Erin Mauricio PA-C Last Filed: 05/18/24 13:15> Surgical History Surgical History: Surgical History Hx of foot surgery History of esophagogastroduodenoscopy (EGD) Hx of colonoscopy History of ankle surgery History of hammertoe correction History of skin ulcer Hx of cholecystectomy <Erin Mauricio PA-C Last Filed: 05/18/24 13:15> Social History Social History: Social History Household Members: None Housing: Condominium Are you a primary inpatient care manager rn to a significant other at home: No Do you presently have visiting nurse or other home services: No Alcohol intake: current Alcohol intake frequency: holidays/special occasions only Patient Tobacco Use Status: Former Tobacco user Tobacco use type: Cigarette e-Cigarette/Vaping Use: Never Used Second Hand Smoke Exposure: Yes Advance Directives Date on File: 02/10/17 service: No Current occupational status: employed Current occupation: [employer] Current occupational exposures/hazards: No Cognitive needs: No Hearing needs: No Vision needs: No <SHOAIB Alex Last Filed: 05/18/24 13:15> Meds Allergies/Adverse reactions: Allergies Allergy/AdvReac Type Severity Reaction Status Date / Time No Known Allergies Allergy Verified 05/19/24 08:29 [No Known Allergies*] <Erin Mauricio PA-C - Last Filed: 05/18/24 13:15> Active Medications: Current Medications Acetaminophen (Acetaminophen 325 Mg Tablet) 650 mg PO Q6H PRN PRN Reason: Pain, Mild (Pain Scale 1-3), fever or headache Atorvastatin Calcium (Atorvastatin Calcium 10 Mg Tablet) 10 mg PO DAILY [facility] Calcium Carbonate (Calcium Carbonate 750 Mg Tab.Chew) 750 mg PO Q4H PRN PRN Reason: Heartburn Glucose (Glucose Gel 15 Gm Gel..Gram.) 15 gm PO Q15M PRN; Protocol PRN Reason: per Hypoglycemia Standing Ord. Dextrose (D10) 250 mls @ 750 mls/hr IV Q15M PRN; Protocol PRN Reason: per Hypoglycemia Standing Ord. Doxycycline Hyclate 100 mg/ (Sodium Chloride) 250 mls @ 166.67 mls/hr IV Q12H [facility] Last Infusion: 05/18/24 13:01 Dose: Infused Insulin Human Lispro (Insulin Lispro 100 Unit/Ml 3 Ml Vial) 0 unit SUBCUT Q6H [facility]; Protocol Last Admin: 05/18/24 08:31 Dose: Not Given Lisinopril (Lisinopril 10 Mg Tablet) 10 mg PO DAILY [facility]; Protocol Last Admin: 05/18/24 11:06 Dose: 10 mg Magnesium Hydroxide (Milk Of Magnesia 30 Ml Oral.Susp) 30 ml PO DAILY PRN PRN Reason: Constipation Melatonin (Melatonin 3 Mg Tablet) 6 mg PO BEDTIME PRN PRN Reason: Insomnia Morphine Sulfate (Morphine Sulfate 4 Mg/Ml Cartridge) 4 mg IVPUSH Q4H PRN; Protocol PRN Reason: Pain, Severe (Pain Scale 7-10) Last Admin: 05/18/24 10:19 Dose: 4 mg Omeprazole (Omeprazole 20 Mg Capsule.Dr) 20 mg PO DAILY@0630 [facility] Ondansetron HCl (Ondansetron Hcl 4 Mg/2 Ml Vial) 4 mg IVPUSH Q8H PRN PRN Reason: Nausea and Vomiting Last Admin: 05/18/24 10:19 Dose: 4 mg Oxycodone HCl (Oxycodone Hcl Immed Release 5 Mg Tablet) 10 mg PO Q4H PRN PRN Reason: Pain, Moderate(Pain Scale 4-6) Last Admin: 05/18/24 12:55 Dose: 10 mg Sodium Chloride (0.9 % Sodium Chloride Flush 3 Ml Syringe) 3 ml IVFLUSH QSHIFT [facility] Last Admin: 05/18/24 07:15 Dose: 3 ml <Erin Mauricio PA-C - Last Filed: 05/18/24 13:15> Home medications: Home Medications ?Medication ?Instructions ?Recorded ?Confirmed ?Last Taken ?Type pantoprazole 20 mg tablet,delayed 20 mg PO DAILY 10/13/23 05/18/24 05/16/24 History release doxycycline hyclate 100 mg capsule 100 mg PO BID 05/10/24 05/18/24 05/16/24 History <SHOAIB Alex Last Filed: 05/18/24 13:15> Physical Exam Vital Signs: Vital Signs: Last Vital Signs Temp 98.3 F 05/18/24 06:06 Pulse 75 05/18/24 06:06 Resp 16 05/18/24 06:06 BP 150/75 H 05/18/24 06:06 Pulse Ox 97 05/18/24 06:06 O2 Del Method Room Air 05/18/24 06:06 BMI result Body Mass Index 27.9 <Erin Mauricio PA-C - Last Filed: 05/18/24 13:15> Results Labs Result Diagrams: 05/18/24 03:59 05/18/24 03:59 <SHOAIB Alex Last Filed: 05/18/24 13:15> Labs: Abnormal lab results 05/17/24 05/17/24 05/18/24 Range/Units 20:39 21:30 03:59 WBC 12.6 H (4.8-10.8) X10*3/uL RBC 4.09 L (4.20-5.50) X10*6/uL Hgb 11.9 L (12.0-16.0) g/dl Hct 34.8 L (37.0-47.0) % MPV 9.1 L 9.0 L (9.4-12.3) fL Immature Gran % (Auto) 0.6 H (0.0-0.4) % Abs Immat Gran (auto) 0.08 H (0.00-0.03) X10*3/uL Absolute Neuts (auto) 9.1 H (2.0-8.3) x10*3/uL Chloride 109 H 109 H (96-108) mmol/L Carbon Dioxide 19 L 21 L (22-29) mmol/L POC Glucose 151 H (60-115) mg/dL Random Glucose 158 H 154 H (60-115) mg/dL ALT 35 H (0-31) U/L 05/18/24 Range/Units 08:27 WBC (4.8-10.8) X10*3/uL RBC (4.20-5.50) X10*6/uL Hgb (12.0-16.0) g/dl Hct (37.0-47.0) % MPV (9.4-12.3) fL Immature Gran % (Auto) (0.0-0.4) % Abs Immat Gran (auto) (0.00-0.03) X10*3/uL Absolute Neuts (auto) (2.0-8.3) x10*3/uL Chloride (96-108) mmol/L Carbon Dioxide (22-29) mmol/L POC Glucose 147 H (60-115) mg/dL Random Glucose (60-115) mg/dL ALT (0-31) U/L H & H 05/17/24 05/18/24 Range/Units 20:39 03:59 Hgb 13.5 11.9 L (12.0-16.0) g/dl Hct 38.8 34.8 L (37.0-47.0) % Coagulation 05/17/24 Range/Units 20:39 INR 1.0 (0.9-1.1) All other labs normal. <Erin Mauricio PA-C - Last Filed: 05/18/24 13:15> Assessment and Plan (1) Fracture of femoral neck, left: Status: Acute <Erin Mauricio PA-C - Last Filed: 05/18/24 13:15> I discussed the case with Dr Che and explained the extent of the injury to the patient and options available which include surgical intervention. I explained the procedure in detail along with the length of recovery and rehab course. I explained the risk, benefits and alternatives. Risk including, but not limited to infection, blood clots, bleeding, non union or malunion and nerve/tissue damage to surrounding areas. I answered all their questions and with their understanding they have consented to move forward with Operative Fixation of the left hip. The patient will be T&S, med clearance obtained and NPO . <Erin Mauricio PA-C - Last Filed: 05/18/24 13:15> I discussed the case with patient and I explained the extent of the injury to the patient and options available which include surgical intervention. I explained the procedure in detail along with the length of recovery and rehab course. I explained the risk, benefits and alternatives. Risk including, but not limited to infection, blood clots, bleeding, non union or malunion, NEED FOR ADDITIONAL SURGERY, and nerve/tissue damage to surrounding areas. I answered all questions and she consented to move forward with Operative Fixation of the left hip. <Willy Che MD - Last Filed: 05/19/24 09:30> Procedures Date of Service Date of Service: 05/18/24 <Erin Mauricio PA-C - Last Filed: 05/18/24 13:15> 05/19/24 <Willy Che MD - Last Filed: 05/19/24 09:30>
--- NOTE | 2024-05-18 13:22 | PC.NURSE ---
pt noted to be 88% on RA. no sob/wob noted. respirations even/unlabored. lungs CTA. pt repositioned to promote patent airway. pt placed on 2L via NC for supplemental O2. tolerating well. respirations even/unlabored. pt continues to wait to go to OR at this time. plan of care ongoing.
--- NOTE | 2024-05-18 14:50 | MHC.CM.PN ---
Addendum entered by Tayla Duncan 05/18/24 14:53: Eugenie is a RN for [facility]. Not a physical therapist. Original Note: Met with patient and daughter, Fabiola, in regards to discharge planning. Patient lives alone, ambulates independently at baseline and had no services prior to coming to the hospital. PCP verified. Copy of HCP verified. to be on file. Patient will go to the OR for a fractured femur today. Patient has never been to short term rehab. Patient aware physical therapy eval will be completed after surgery. List of [facility] facilities contracted with patient's insurance within 15 miles of patient's home provided to patient. Patient is hoping to be able to go home with new [facility] referral. Patient's sig other has used them in the past. Patient is requesting Eugenie to be her physical therapist. Referral made via [facility]. Continue to monitor for d/c needs.
--- NOTE | 2024-05-18 15:11 | PC.NURSE ---
report given to AZUCENA Howard in overflow at this time.
[2024-05-18] MEDS: Acetaminophen 325 MG TABLET 650 MG PO (17:04)
--- NOTE | 2024-05-18 18:02 | PC.NURSE ---
Per [facility], patient no longer having procedure done tonight, and to be put on add on schedule tomorrow. May eat dinner tonight, NPO after midnight. Anita chavarria RN made aware.
--- NOTE | 2024-05-18 18:13 | PC.NURSE ---
Per surgical technician patient can eat dinner, NPO after midnight will have surgery in the AM
[2024-05-18 19:14] LABS: Glucose, Whole Blood 201 mg/dL (60-115)
[2024-05-18] MEDS: Insulin Lispro 100 UNIT/ML 3 ML VIAL SUBCUT (20:21)
[2024-05-19] VITALS (19 sets, daily range): BP systolic 104–140; BP diastolic 55–86; PULSE 69–100; RESP 14–19; TEMP 36–38.5; O2SAT 88–97
--- NOTE | 2024-05-19 01:13 | PC.NURSE ---
Pt febrile 101.0, rechecked at 100.3, new orders received by surgeon. Pt resting quietly with no apparnet distress, 3L NC on, respirations even and nonlabored.
[2024-05-19] MEDS: Acetaminophen 325 MG TABLET 650 MG PO (01:48)
[2024-05-19] MEDS: Morphine Sulfate 4 MG/ML CARTRIDGE IVPUSH ×3 (04:14→23:28)
[2024-05-19 05:07] LABS: Glucose, Whole Blood 156 mg/dL (60-115)
[2024-05-19] MEDS: Insulin Lispro 100 UNIT/ML 3 ML VIAL SUBCUT ×4 (05:09→23:43)
[2024-05-19 07:26] LABS: Glucose, Whole Blood 131 mg/dL (60-115)
[2024-05-19] MEDS: 0.9 % Sodium Chloride Flush 3 ML SYRINGE IVFLUSH ×3 (08:01→23:59)
--- NOTE | 2024-05-19 08:29 | P.CONAN_ITS ---
HPI - Anesthesia Eval Consult details Narrative: left hip fracture PMFSH Active Problems Active Problems: All Active Problems Femoral neck fracture (Acute) Fracture of femoral neck, left (Acute) Osteomyelitis (Acute) Vitamin D deficiency (Acute) Hordeolum externum of right lower eyelid (Acute) Skin lesions (Acute) Screening for colon cancer (Acute) Systolic murmur (Acute) Wound of foot (Acute) Diabetes (Acute) Physical exam (Acute) Bruises easily (Acute) Hip pain (Acute) Microalbuminuria (Acute) Post-menopausal (Acute) Fatty liver (Acute) Serum calcium elevated (Acute) Pre-op evaluation (Acute) Elevated liver enzymes (Acute) GERD (gastroesophageal reflux disease) (Acute) Dyslipidemia (Acute) Acquired hammertoes of both feet (Acute) Peripheral neuropathy (Acute) Past Medical History Medical History Cellulitis of left leg COVID-19 vaccine series completed Diabetes Arthritis Anxiety Hx of osteomyelitis History of cholelithiasis GERD (gastroesophageal reflux disease) Dyslipidemia Acquired hammertoes of both feet Peripheral neuropathy Family History Family History Father Diabetes mellitus HTN (hypertension) Myocardial infarction Hyperlipidemia Mother Lymphoma Hyperlipidemia Family history of problems with anesthesia: No Surgical History Surgical History Hx of foot surgery History of esophagogastroduodenoscopy (EGD) Hx of colonoscopy History of ankle surgery History of hammertoe correction History of skin ulcer Hx of cholecystectomy History of Problems with Anesthesia: No Social History Social History Household Members: None Housing: Condominium Are you a primary palliative care coordinator to a significant other at home: No Do you presently have visiting nurse or other home services: No Alcohol intake: current Alcohol intake frequency: holidays/special occasions only Patient Tobacco Use Status: Former Tobacco user Tobacco use type: Cigarette e-Cigarette/Vaping Use: Never Used Second Hand Smoke Exposure: Yes Advance Directives Date on File: 02/10/17 service: No Current occupational status: employed Current occupation: [employer] Current occupational exposures/hazards: No Cognitive needs: No Hearing needs: No Vision needs: No Meds Allergies Allergy/AdvReac Type Severity Reaction Status Date / Time No Known Allergies Allergy Verified 05/19/24 08:29 [No Known Allergies*] Active Medications: Current Medications Acetaminophen (Acetaminophen 325 Mg Tablet) 650 mg PO Q6H PRN PRN Reason: Pain, Mild (Pain Scale 1-3), fever or headache Last Admin: 05/19/24 01:48 Dose: 650 mg Atorvastatin Calcium (Atorvastatin Calcium 10 Mg Tablet) 10 mg PO DAILY [facility] Last Admin: 05/19/24 08:11 Dose: Not Given Calcium Carbonate (Calcium Carbonate 750 Mg Tab.Chew) 750 mg PO Q4H PRN PRN Reason: Heartburn Glucose (Glucose Gel 15 Gm Gel..Gram.) 15 gm PO Q15M PRN; Protocol PRN Reason: per Hypoglycemia Standing Ord. Dextrose (D10) 250 mls @ 750 mls/hr IV Q15M PRN; Protocol PRN Reason: per Hypoglycemia Standing Ord. Doxycycline Hyclate 100 mg/ (Sodium Chloride) 250 mls @ 166.67 mls/hr IV Q12H [facility] Last Infusion: 05/19/24 00:32 Dose: Infused Insulin Human Lispro (Insulin Lispro 100 Unit/Ml 3 Ml Vial) 0 unit SUBCUT Q6H [facility]; Protocol Last Admin: 05/19/24 08:13 Dose: Not Given Lisinopril (Lisinopril 10 Mg Tablet) 10 mg PO DAILY [facility]; Protocol Last Admin: 05/19/24 08:11 Dose: Not Given Magnesium Hydroxide (Milk Of Magnesia 30 Ml Oral.Susp) 30 ml PO DAILY PRN PRN Reason: Constipation Melatonin (Melatonin 3 Mg Tablet) 6 mg PO BEDTIME PRN PRN Reason: Insomnia Morphine Sulfate (Morphine Sulfate 4 Mg/Ml Cartridge) 4 mg IVPUSH Q4H PRN; Protocol PRN Reason: Pain, Severe (Pain Scale 7-10) Last Admin: 05/19/24 04:14 Dose: 4 mg Omeprazole (Omeprazole 20 Mg Capsule.Dr) 20 mg PO DAILY@0630 [facility] Ondansetron HCl (Ondansetron Hcl 4 Mg/2 Ml Vial) 4 mg IVPUSH Q8H PRN PRN Reason: Nausea and Vomiting Last Admin: 05/18/24 10:19 Dose: 4 mg Oxycodone HCl (Oxycodone Hcl Immed Release 5 Mg Tablet) 10 mg PO Q4H PRN PRN Reason: Pain, Moderate(Pain Scale 4-6) Last Admin: 05/18/24 17:03 Dose: 10 mg Sodium Chloride (0.9 % Sodium Chloride Flush 3 Ml Syringe) 3 ml IVFLUSH QSHIFT [facility] Last Admin: 05/19/24 08:01 Dose: 3 ml Home Medications ?Medication ?Instructions ?Recorded ?Confirmed ?Last Taken ?Type pantoprazole 20 mg tablet,delayed 20 mg PO DAILY 10/13/23 05/18/24 05/16/24 History release doxycycline hyclate 100 mg capsule 100 mg PO BID 05/10/24 05/18/24 05/16/24 History Exam Height,Weight and Vital Signs: Height 5 ft 7 in Weight 81 kg Last Vital Signs Temp 98.1 F 05/19/24 07:07 Pulse 76 05/19/24 07:07 Resp 16 05/19/24 07:07 BP 105/63 05/19/24 07:07 Pulse Ox 94 05/19/24 07:07 O2 Del Method Nasal Cannula 05/19/24 07:07 O2 Flow Rate 3 05/19/24 07:07 Pertinent Lab Results Pertinent Lab Results: Laboratory Tests 05/17/24 05/17/24 05/17/24 20:39 20:44 21:30 WBC 12.6 H RBC 4.57 Hgb 13.5 Hct 38.8 MCV 84.9 MCH 29.5 MCHC 34.8 RDW 13.8 Plt Count 353 MPV 9.1 L Immature Gran % (Auto) 0.6 H Neut % (Auto) 72.3 Lymph % (Auto) 20.1 Webster % (Auto) 5.9 Eos % (Auto) 0.6 Baso % (Auto) 0.5 Lymph # (Auto) 2.5 [place] # (Auto) 0.8 Eos # (Auto) 0.1 Baso # (Auto) 0.1 Abs Immat Gran (auto) 0.08 H Absolute Neuts (auto) 9.1 H Absolute Nucleated RBC 0.000 Nucleated RBC % (auto) 0.0 PT 12.1 INR 1.0 Sodium 140 Potassium 3.8 Chloride 109 H Carbon Dioxide 19 L Anion Gap 16 BUN 13 Creatinine 0.71 Estim Creat Clear Calc 88.7 Estimated GFR > 60 POC Glucose 151 H Random Glucose 158 H Calcium 9.7 Total Bilirubin 0.4 AST 26 ALT 35 H Alkaline Phosphatase 63 Total Protein 7.5 Albumin 4.3 Blood Type A Positive Antibody Screen NEGATIVE 05/18/24 05/18/24 05/18/24 03:59 08:27 19:08 WBC 9.3 RBC 4.09 L Hgb 11.9 L Hct 34.8 L MCV 85.1 MCH 29.1 MCHC 34.2 RDW 13.8 Plt Count 308 MPV 9.0 L Immature Gran % (Auto) 0.2 Neut % (Auto) 64.1 Lymph % (Auto) 27.3 [place] % (Auto) 6.7 Eos % (Auto) 1.2 Baso % (Auto) 0.5 Lymph # (Auto) 2.5 Webster # (Auto) 0.6 Eos # (Auto) 0.1 Baso # (Auto) 0.1 Abs Immat Gran (auto) 0.02 Absolute Neuts (auto) 6.0 Absolute Nucleated RBC 0.000 Nucleated RBC % (auto) 0.0 PT INR Sodium 139 Potassium 3.7 Chloride 109 H Carbon Dioxide 21 L Anion Gap 13 BUN 11 Creatinine 0.65 Estim Creat Clear Calc 96.8 Estimated GFR > 60 POC Glucose 147 H 201 H Random Glucose 154 H Calcium 9.0 D Total Bilirubin AST ALT Alkaline Phosphatase Total Protein Albumin Blood Type Antibody Screen 05/19/24 05/19/24 05:03 07:11 WBC RBC Hgb Hct MCV MCH MCHC RDW Plt Count MPV Immature Gran % (Auto) Neut % (Auto) Lymph % (Auto) Webster % (Auto) Eos % (Auto) Baso % (Auto) Lymph # (Auto) Webster # (Auto) Eos # (Auto) Baso # (Auto) Abs Immat Gran (auto) Absolute Neuts (auto) Absolute Nucleated RBC Nucleated RBC % (auto) PT INR Sodium Potassium Chloride Carbon Dioxide Anion Gap BUN Creatinine Estim Creat Clear Calc Estimated GFR POC Glucose 156 H 131 H Random Glucose Calcium Total Bilirubin AST ALT Alkaline Phosphatase Total Protein Albumin Blood Type Antibody Screen Airway Mallampati Class: II TM Dist: >3cm Neck ROM: Full Heart: rrr Lungs: cta Assessment and Plan Assessment Anesthesia Assessment: Anesthesia Plan Discussed Final Anesthetic Review Family History of Problems with Anesthesia: No History of Problems with Anesthesia: No NPO: Yes ASA Class: III (osteomyelitis) Final Preanesthetic Review: No Changes in Pt Med Stat, Meds/Allgs Chart Reviewed, Consent Obtained/Reviewed and Anes Risks/Benef Reviewed Patient Risk: Intermediate Procedure Risk: Intermediate Anesthetic Plan Anesthetic Plan: GA Disposition: Standard PACU
--- NOTE | 2024-05-19 10:40 | P.BOP_ITS ---
Brief Operative Note Date of Service: 05/19/24 Pre-op diagnosis: Left femoral neck fracture Post-op diagnosis: same Procedure: CRPP left femoral neck Implants: 6.5 cannulated screws x 3, [place] Surgeon: Willy Che MD Anesthesia: GETA and regional Was an Cloth Examiner Machine used for this Procedure?: No Estimated blood loss (mL): 20 IV fluids (mL): 650 Pathology: none sent Condition: stable Disposition: PACU
[2024-05-19] MEDS: ondansetron HCL 4 MG/2 ML VIAL IVPUSH (11:06)
[2024-05-19] MEDS: HYDROmorphone HCl 0.5 MG/0.5 ML SYRINGE 0.25 MG IVPUSH ×2 (11:20→11:27)
--- NOTE | 2024-05-19 12:05 | HO.PM.IMPN ---
Subjective Subjective Date of Service: 05/19/24 Interval History: Doing well immediate postop. No acute issues Review of Systems Denies chest pain Denies shortness of breath Denies nausea vomiting diarrhea Denies fever chills Physical Exam Vital Signs: Vital Signs: Last Vital Signs Temp 97.8 F 05/19/24 11:38 Pulse 69 05/19/24 11:38 Resp 19 05/19/24 11:38 BP 111/63 05/19/24 11:38 Pulse Ox 95 05/19/24 11:38 O2 Del Method Nasal Cannula 05/19/24 11:38 O2 Flow Rate 2 05/19/24 11:38 BMI result Body Mass Index 28.0 Const: Other: Awake alert no acute distress lying quietly in stretcher Resp: Other: Clear to auscultation bilaterally no rales rhonchi or wheezes Cardio: Other: No S4; positive S1-S2; no S3 murmurs rubs or gallops GI: Other: Soft nontender nondistended normoactive bowel sounds Extrem: Other: No edema bilaterally Objective Data Active Medications Acetaminophen (Acetaminophen 325 Mg Tablet) 650 mg PO Q6H PRN PRN Reason: Pain, Mild (Pain Scale 1-3), fever or headache Last Admin: 05/19/24 01:48 Dose: 650 mg Documented By: LILLIAN Atorvastatin Calcium (Atorvastatin Calcium 10 Mg Tablet) 10 mg PO DAILY [facility] Last Admin: 05/19/24 08:11 Dose: Not Given Documented By: AMEENA Non-Admin Reason: NPO Calcium Carbonate (Calcium Carbonate 750 Mg Tab.Chew) 750 mg PO Q4H PRN PRN Reason: Heartburn Glucose (Glucose Gel 15 Gm Gel..Gram.) 15 gm PO Q15M PRN; Protocol PRN Reason: per Hypoglycemia Standing Ord. Dextrose (D10) 250 mls @ 750 mls/hr IV Q15M PRN; Protocol PRN Reason: per Hypoglycemia Standing Ord. Doxycycline Hyclate 100 mg/ (Sodium Chloride) 250 mls @ 166.67 mls/hr IV Q12H [facility] Last Infusion: 05/19/24 00:32 Dose: Infused Documented By: LILLIAN Cefazolin Sodium/Dextrose (Ancef) 2 gm in 50 mls @ 100 mls/hr IV POSTOP [facility] Insulin Human Lispro (Insulin Lispro 100 Unit/Ml 3 Ml Vial) 0 unit SUBCUT Q6H [facility]; Protocol Last Admin: 05/19/24 08:13 Dose: Not Given Documented By: AMEENA Non-Admin Reason: No Insulin Coverage Lisinopril (Lisinopril 10 Mg Tablet) 10 mg PO DAILY [facility]; Protocol Last Admin: 05/19/24 08:11 Dose: Not Given Documented By: AMEENA Non-Admin Reason: NPO Magnesium Hydroxide (Milk Of Magnesia 30 Ml Oral.Susp) 30 ml PO DAILY PRN PRN Reason: Constipation Melatonin (Melatonin 3 Mg Tablet) 6 mg PO BEDTIME PRN PRN Reason: Insomnia Morphine Sulfate (Morphine Sulfate 4 Mg/Ml Cartridge) 4 mg IVPUSH Q4H PRN; Protocol PRN Reason: Pain, Severe (Pain Scale 7-10) Last Admin: 05/19/24 04:14 Dose: 4 mg Documented By: LILLIAN Omeprazole (Omeprazole 20 Mg Capsule.Dr) 20 mg PO DAILY@0630 [facility] Ondansetron HCl (Ondansetron Hcl 4 Mg/2 Ml Vial) 4 mg IVPUSH Q8H PRN PRN Reason: Nausea and Vomiting Last Admin: 05/18/24 10:19 Dose: 4 mg Documented By: ROSEMARY Oxycodone HCl (Oxycodone Hcl Immed Release 5 Mg Tablet) 10 mg PO Q4H PRN PRN Reason: Pain, Moderate(Pain Scale 4-6) Last Admin: 05/18/24 17:03 Dose: 10 mg Documented By: DEBI Sodium Chloride (0.9 % Sodium Chloride Flush 3 Ml Syringe) 3 ml IVFLUSH QSNDFT [facility] Last Admin: 05/19/24 08:01 Dose: 3 ml Documented By: AMEENA Labs 05/18/24 03:59 05/18/24 03:59 Labs: Laboratory Results - last 24 hr 05/18/24 05/19/24 05/19/24 19:08 05:03 07:11 POC Glucose 201 H 156 H 131 H Assessment and Plan (1) Fracture of femoral neck, left: Status: Acute Plan This is a 63-year-old female with pertinent history of cor-[id number] diabetes mellitus, hypertension, mixed hyperlipidemia, gastroesophageal reflux disease, peripheral neuropathy, osteomyelitis of toes who presents to the emergency department for evaluation after a fall. 1.Acute left femoral neck fracture -as per Orthopedics -PT/OT consult 2.Osteomyelitis of toes -continue IV doxycycline as ordered 3.Hypertension -acceptable control at present -hold lisinopril -reassess in postoperative. 4.Uvi-zndhqvx-fnmnybops diabetes mellitus with peripheral neuropathy -lispro correctional scale -adjust as indicated -resume oral agents once able to take p.o. Mechanical Full code Requires ongoing hospitalization for surgical intervention to correct left femoral neck fracture Quality Stroke Does the patient have a stroke diagnosis?: No VTE Prior VTE?: No VTE Risk Level:: Medical - moderate - high VTE Device Contraindication: N/A - Device Ordered VTE Drug Contraindication: Treatment Not Indicated
[2024-05-19 12:38] LABS: Glucose, Whole Blood 222 mg/dL (60-115)
--- NOTE | 2024-05-19 12:41 | MHC.CM.PN ---
EMR REVIEWED AND PER MD ROUNDS, PT WILL UNDERGO SURGICAL REPAIR LEFT HIP TODAY. WILL AWAIT P.T. EVAL TO DETERMINE DC NEEDS/DISPOSITION. [facility] UPDATED AND FOLLOWING. CM WILL CONTINUE TO FOLLOW FOR THE PLAN
[2024-05-19] MEDS: Doxycycline Hyclate 100 MG in 0.9 % Sodium Chloride 250 ML 166.67 MG IV (13:01)
[2024-05-19] MEDS: Omeprazole 20 MG CAPSULE.DR PO (13:03)
[2024-05-19] MEDS: oxyCODONE HCl Immed Release 5 MG TABLET 10 MG PO ×2 (13:16→17:10)
[2024-05-19 16:27] LABS: Glucose, Whole Blood 343 mg/dL (60-115)
[2024-05-19] MEDS: Doxycycline Hyclate 100 MG in 0.9 % Sodium Chloride 250 ML 166.7 MG IV (21:45)
[2024-05-19] MEDS: Throat Lozenge, Medicated LOZENGE 1 LOZENGE MUCOUS MEM (23:28)
[2024-05-19 23:43] LABS: Glucose, Whole Blood 228 mg/dL (60-115)
[2024-05-20] VITALS (7 sets, daily range): BP systolic 122–160; BP diastolic 63–77; PULSE 70–79; RESP 12–18; TEMP 36–36.8; O2SAT 92–96
[2024-05-20] MEDS: Omeprazole 20 MG CAPSULE.DR PO (06:14)
[2024-05-20] MEDS: oxyCODONE HCl Immed Release 5 MG TABLET 10 MG PO ×4 (06:15→21:48)
[2024-05-20 06:52] LABS: Glucose, Whole Blood 231 mg/dL (60-115)
[2024-05-20] MEDS: lisinopriL 10 MG TABLET PO (07:53)
[2024-05-20] MEDS: Insulin Lispro 100 UNIT/ML 3 ML VIAL SUBCUT ×4 (07:53→21:48)
[2024-05-20] MEDS: Atorvastatin Calcium 10 MG TABLET PO (07:54)
[2024-05-20] MEDS: 0.9 % Sodium Chloride Flush 3 ML SYRINGE IVFLUSH ×3 (07:54→21:49)
[2024-05-20] MEDS: Throat Lozenge, Medicated LOZENGE 1 LOZENGE MUCOUS MEM (08:05)
--- NOTE | 2024-05-20 08:54 | HO.POSTANES ---
Post Anesthesia Evaluation Post Anesthesia Evaluation Date of Service: 05/20/24 Vital Signs: Vital Signs Temp Pulse Resp BP Pulse Ox O2 Del Method 05/20/24 07:58 71 128/63 94 05/20/24 07:47 97.3 F 71 12 128/63 94 Room Air 05/20/24 04:00 96.8 F 70 18 122/64 96 Room Air 05/20/24 00:00 97.3 F 70 16 134/63 92 Room Air Anesthesia: General LMA Mental Status: Awake Pain Control: Satisfactory Nausea/Vomiting: None Hydration: Adequate Anesthesia-Related Issues: No Anes. Related Issues
--- NOTE | 2024-05-20 09:44 | P.PNOP_ITS ---
Subjective Subjective Date of Service: 05/20/24 Interval history: POD 1 s/p Lt hip CRPP no over night events resting in chair, worked with PT this AM denies cp, sob, palpitations Physical Exam Vital Signs: Vital Signs: Last Vital Signs Temp 97.3 F 05/20/24 07:47 Pulse 71 05/20/24 07:58 Resp 12 05/20/24 07:47 BP 128/63 05/20/24 07:58 Pulse Ox 94 05/20/24 07:58 O2 Del Method Room Air 05/20/24 07:47 O2 Flow Rate 3 05/19/24 12:14 BMI result Body Mass Index 28.0 Const: General: cooperative, healthy appearing and no acute distress Resp: Effort & Inspection: normal respiratory effort and able to speak in complete sentences Cardio: Rate: regular rate Peripheral pulses: Peripheral pulses 2+ throughout GI: Palpation (GI): Soft to palpation Skin: General skin exam: no rashes or lesions noted Extrem: Other: bandage clean dry and intact. Maris intact. No erythema or effusion. Calf supple nontender. Neurovascularly intact. Procedures Date of Service Date of Service: 05/20/24 Progress Note: A&P Assessment and plan (1) Fracture of femoral neck, left: Status: Acute Assessment and Plan: * Continue pain mgmnt * Begin lovenox for dvt ppx * begin PT for LT hip CRPP wbat * Dispo planning-Pending PT eval, pain mgmnt Time Spent With Patient Time: Total time managing care of this patient today ____ minutes. Quality Stroke Does the patient have a stroke diagnosis?: No VTE Prior VTE?: No VTE Risk Level:: Medical - moderate - high VTE Device Contraindication: N/A - Device Ordered VTE Drug Contraindication: Treatment Not Indicated
--- NOTE | 2024-05-20 10:17 | MHC.CM.PN ---
Addendum entered by Citlaly Roe 05/20/24 15:34: [facility] IS STILL REVIEWING REFERRAL WITH THEIR MD NO BED OFFERS AT THIS TIME PT LIKELY TO DC TO REHAB TOMORROW PENDING INSURANCE AUTH Original Note: CM MET WITH PT TO DISCUSS DC PLANNING PT STATES SOMEONE TOLD HER [facility] IS THE BEST CM EXPLAINED THE DIFFERENCE BETWEEN STR AND [facility] PT IS AWARE [facility] IS THE ONLY STR OFFERING SHE REQUESTS REFERRALS TO [facility] REFERRALS OUT
[2024-05-20] MEDS: Doxycycline Monohydrate 100 MG CAPSULE PO ×2 (10:21→21:48)
[2024-05-20 11:34] LABS: Glucose, Whole Blood 182 mg/dL (60-115)
[2024-05-20] MEDS: Enoxaparin Sodium 40 MG/0.4 ML SYRINGE SUBCUT (13:00)
--- NOTE | 2024-05-20 15:54 | P.PNIM_ITS ---
Subjective Subjective Date of Service: 05/20/24 Interval History: Seen and examined this morning Follow-up for fall, left femoral neck fracture, s/p CRPP 9/ some pain left hip - was able to ambulate with physical therapy No shortness a breath, chest pain, abdominal pain Review of Systems Review of Systems: Yes all other systems are reviewed and are negative Constitutional Constitutional: Denies chills and Denies fever(s) ENT Ears, Nose, Mouth, and Throat: Denies dizziness Cardiovascular Cardiovascular: Denies chest pain, Denies palpitations and Denies dyspnea Respiratory Respiratory: Denies cough and Denies dyspnea Neurologic Neurologic: Denies dizziness Endocrine Endocrine: Denies palpitations Physical Exam 2 Vital Signs: Vital Signs: Last Vital Signs Temp 97.2 F 05/20/24 12:00 Pulse 79 05/20/24 12:00 Resp 14 05/20/24 12:00 BP 160/77 H 05/20/24 12:00 Pulse Ox 94 05/20/24 12:00 O2 Del Method Room Air 05/20/24 12:00 O2 Flow Rate 3 05/19/24 12:14 BMI result Body Mass Index 28.0 Const: General: cooperative, comfortable, no acute distress, alert and awake Nutritional Appearance: average body habitus Orientation/consciousness: p atient oriented x3 Resp: Effort & Inspection: normal respiratory effort, able to speak in complete sentences, no respiratory distress and no use of accessory muscles A uscultation: clear to auscultation bilaterally Cardio: Rate: regular rate GI: Inspection: No distended Palpation (GI): Soft to palpation and nontender Neuro: General: patient oriented x3 and CN's II-XI intact bilaterally Extrem: Other: left hip bandage c/d/i Objective Data Active Medications Acetaminophen (Acetaminophen 325 Mg Tablet) 650 mg PO Q6H PRN PRN Reason: Pain, Mild (Pain Scale 1-3), fever or headache Last Admin: 05/19/24 01:48 Dose: 650 mg Documented By: LILLIAN Atorvastatin Calcium (Atorvastatin Calcium 10 Mg Tablet) 10 mg PO DAILY MARJORIE Last Admin: 05/20/24 07:54 Dose: 10 mg Documented By: ANA CRISTINA Benzocaine (Throat Lozenge, Medicated Lozenge) 1 lozenge MUCOUS MEM Q2H PRN PRN Reason: Sore Throat Last Admin: 05/20/24 08:05 Dose: 1 lozenge Documented By: ANA CRISTINA Calcium Carbonate (Calcium Carbonate 750 Mg Tab.Chew) 750 mg PO Q4H PRN PRN Reason: Heartburn Doxycycline Monohydrate (Doxycycline Monohydrate 100 Mg Capsule) 100 mg PO Q12H [facility] Last Admin: 05/20/24 10:21 Dose: 100 mg Documented By: ANA CRISTINA Enoxaparin Sodium (Enoxaparin Sodium 40 Mg/0.4 Ml Syringe) 40 mg SUBCUT Q24H [facility] Last Admin: 05/20/24 13:00 Dose: 40 mg Documented By: ANA CRISTINA Comments: Patient initially refused, but now agreeable Glucose (Glucose Gel 15 Gm Gel..Gram.) 15 gm PO Q15M PRN; Protocol PRN Reason: per Hypoglycemia Standing Ord. Dextrose (D10) 250 mls @ 750 mls/hr IV Q15M PRN; Protocol PRN Reason: per Hypoglycemia Standing Ord. Cefazolin Sodium/Dextrose (Ancef) 2 gm in 50 mls @ 100 mls/hr IV POSTOP [facility] Insulin Human Lispro (Insulin Lispro 100 Unit/Ml 3 Ml Vial) 0 unit SUBCUT QIDACHS [facility]; Protocol Last Admin: 05/20/24 12:12 Dose: 2 unit Documented By: ANA CRISTINA Lisinopril (Lisinopril 10 Mg Tablet) 10 mg PO DAILY [facility]; Protocol Last Admin: 05/20/24 07:53 Dose: 10 mg Documented By: ANA CRISTINA Magnesium Hydroxide (Milk Of Magnesia 30 Ml Oral.Susp) 30 ml PO DAILY PRN PRN Reason: Constipation Melatonin (Melatonin 3 Mg Tablet) 6 mg PO BEDTIME PRN PRN Reason: Insomnia Morphine Sulfate (Morphine Sulfate 4 Mg/Ml Cartridge) 4 mg IVPUSH Q4H PRN; Protocol PRN Reason: Pain, Severe (Pain Scale 7-10) Last Admin: 05/19/24 23:28 Dose: 4 mg Documented By: LILLIAN Omeprazole (Omeprazole 20 Mg Capsule.Dr) 20 mg PO DAILY@0630 [facility] Last Admin: 05/20/24 06:14 Dose: 20 mg Documented By: LILLIAN Ondansetron HCl (Ondansetron Hcl 4 Mg/2 Ml Vial) 4 mg IVPUSH Q8H PRN PRN Reason: Nausea and Vomiting Last Admin: 05/18/24 10:19 Dose: 4 mg Documented By: ROSEMARY Oxycodone HCl (Oxycodone Hcl Immed Release 5 Mg Tablet) 10 mg PO Q4H PRN PRN Reason: Pain, Moderate(Pain Scale 4-6) Last Admin: 05/20/24 14:37 Dose: 10 mg Documented By: ANA CRISTINA Sodium Chloride (0.9 % Sodium Chloride Flush 3 Ml Syringe) 3 ml IVFLUSH QSHIFT MARJORIE Last Admin: 05/20/24 07:54 Dose: 3 ml Documented By: ANA CRISTINA Labs 05/18/24 03:59 05/18/24 03:59 Labs: Laboratory Results - last 24 hr 05/19/24 05/19/24 05/20/24 16:23 23:39 06:46 POC Glucose 343 H 228 H 231 H 05/20/24 11:27 POC Glucose 182 H Assessment and Plan (1) Fracture of femoral neck, left: Status: Acute Plan This is a 63-year-old female with pertinent history of afc-jxtdlnn-kmwpnxxkj diabetes mellitus, hypertension, mixed hyperlipidemia, gastroesophageal reflux disease, peripheral neuropathy, osteomyelitis of toes who presents to the emergency department for evaluation after a fall. Acute left femoral neck fracture s/p CRPP 9/4 PT rec STR ortho following Osteomyelitis of toes diagnosed outpatient continue doxycycline as ordered, until end may Hypertension Continue lisinopril Fga-dieracz-digylmzyl diabetes mellitus with peripheral neuropathy Hold Farxiga, metformin lispro correctional scale HLD continue statin DVT prophylaxis-Lovenox started by ortho Full code Requires ongoing hospitalization for postoperative management, safe disposition Quality Stroke Does the patient have a stroke diagnosis?: No VTE Prior VTE?: No VTE Risk Level:: Medical - moderate - high VTE Device Contraindication: N/A - Device Ordered VTE Drug Contraindication: Treatment Not Indicated
[2024-05-20 16:45] LABS: Glucose, Whole Blood 203 mg/dL (60-115)
[2024-05-20] MEDS: Morphine Sulfate 4 MG/ML CARTRIDGE IVPUSH (17:34)
[2024-05-20 20:39] LABS: Glucose, Whole Blood 226 mg/dL (60-115)
[2024-05-21] VITALS: BP 158/81; PULSE 74; RESP 18; TEMP 36.6; O2SAT 93
[2024-05-21] MEDS: Morphine Sulfate 4 MG/ML CARTRIDGE IVPUSH (01:15)
[2024-05-21 03:43] VITALS: BP 153/71; PULSE 75; RESP 18; TEMP 36.1; O2SAT 94
[2024-05-21] MEDS: Omeprazole 20 MG CAPSULE.DR PO (06:18)
[2024-05-21] MEDS: Milk of Magnesia 30 ML ORAL.SUSP PO (06:22)
[2024-05-21] MEDS: oxyCODONE HCl Immed Release 5 MG TABLET 10 MG PO ×3 (06:22→14:40)
[2024-05-21 07:23] LABS: Glucose, Whole Blood 179 mg/dL (60-115)
[2024-05-21] MEDS: lisinopriL 10 MG TABLET PO (07:34)
[2024-05-21] MEDS: 0.9 % Sodium Chloride Flush 3 ML SYRINGE IVFLUSH (07:34)
[2024-05-21] MEDS: Enoxaparin Sodium 40 MG/0.4 ML SYRINGE SUBCUT (07:34)
[2024-05-21] MEDS: Atorvastatin Calcium 10 MG TABLET PO (07:34)
[2024-05-21 07:39] VITALS: BP 153/71; PULSE 75; O2SAT 94
[2024-05-21] MEDS: Insulin Lispro 100 UNIT/ML 3 ML VIAL SUBCUT ×2 (07:41→11:49)
[2024-05-21 07:52] VITALS: BP 185/74; PULSE 86; RESP 14; TEMP 36.2; O2SAT 93
[2024-05-21 09:22] VITALS: BP 158/70
[2024-05-21] MEDS: Acetaminophen 325 MG TABLET 650 MG PO (10:34)
[2024-05-21] MEDS: Doxycycline Monohydrate 100 MG CAPSULE PO (10:34)
[2024-05-21 11:31] LABS: Glucose, Whole Blood 167 mg/dL (60-115)
[2024-05-21 11:55] VITALS: BP 148/70; PULSE 84; RESP 14; TEMP 36.1; O2SAT 95
--- NOTE | 2024-05-21 12:57 | P.DS_ITS ---
DS: Providers Provider Date of Service: 05/21/24 Date of admission: 05/17/24 21:18 Date of discharge: 05/21/24 Primary care physician: FIOR ForteP- Consults: 05/17/24 21:18 Consult to Orthopedics Routine Consulting Provider: [facility] Reason for consultation: left femoral neck fracture Attending physician on discharge: Jr Rubio Discharging clinician: Georgia Leggett DS: Diagnosis Discharge Diagnosis (1) Fracture of femoral neck, left: Status: Acute DS: Summary Hospital Course Hospital Course: From H&P on the day of admission This is a 63-year-old female with pertinent history of oql-yycpqpf-dqxfjhnrv diabetes mellitus, hypertension, mixed hyperlipidemia, gastroesophageal reflux disease, peripheral neuropathy, osteomyelitis of toes who presents to the emergency department for evaluation after a fall. Patient states she was playing with her nephew when her sandals got stuck and she fell on her left side. She did hit her head. No loss of consciousness prior to the fall. No chest pain or palpitations prior to the fall. No rhythmic jerking movement of extremities. Patient is not on any blood thinners. No fever, chills, chest pain, palpitations, shortness of breath, abdominal pain, changes in urinary or bowel habits. Patient was diagnosed with osteomyelitis of toes about 3 weeks ago and is on doxycycline 100 mg twice daily. In the emergency department, imaging with left femoral neck fracture and Orthopedic surgery was consulted who requested admission to medicine team. Acute left femoral neck fracture due to mechanical fall seen by ortho and underwent CRPP 05/19. seen by PT and recommended STR Osteomyelitis of toes previously diagnosed as outpatient. wounds look good, no erythema. continued on doxycycline as ordered, until end of May. outpatient follow up Hypertension Continue lisinopril Xex-toowobl-hvqmwqtar diabetes mellitus with peripheral neuropathy Hold Farxiga, metformin during hospital stay, can resume baseline meds upon discharge. Time Attestation Discharge Coordination Time (in mins): 35 Quality: Safe Use of Opioids Does Pt have an Active Cancer Diagnosis on the Problem List?: No Quality: Stroke Does the patient have a stroke diagnosis?: No Physical Exam Vital Signs: Vital Signs: Last Vital Signs Temp 97 F 05/21/24 11:55 Pulse 84 05/21/24 11:55 Resp 14 05/21/24 11:55 BP 148/70 H 05/21/24 11:55 Pulse Ox 95 05/21/24 11:55 O2 Del Method Room Air 05/21/24 11:55 O2 Flow Rate 3 05/19/24 12:14 BMI result Body Mass Index 28.0 Const: General: cooperative, comfortable, no acute distress, alert and awake Nutritional Appearance: average body habitus Orientation/consciousness: patient oriented x3 Resp: Effort & Inspection: normal respiratory effort, able to speak in complete sentences, no respiratory distress and no use of accessory muscles Auscultation: clear to auscultation bilaterally Cardio: Rate: regular rate GI: Inspection: No distended Palpation (GI): Soft to palpation and nontender Neuro: General: patient oriented x3 and CN's II-XI intact bilaterally Extrem: Other: left hip bandage c/d/i DS: Data Data Completed and Pending Labs on day of discharge: Laboratory Results - last 24 hr 05/20/24 05/20/24 05/21/24 16:28 20:32 07:10 POC Glucose 203 H 226 H 179 H 05/21/24 11:26 POC Glucose 167 H Discharge Plan Discharge Anticipated Discharge Date/Time: 05/21/24 15:00 Patient Disposition: Xfer SNF Discharge Diagnosis: left femoral neck fracture Referrals: [facility] [Outside] - 1 Week (TRANSFER FOR ACUTE REHAB) Marcelo Quintanilla FNP-BC [Primary Care Provider] - 1 Week Tracey Catherine PA-C [Physician University Lecturer] - 2 Weeks (06/03/24 10:15 [facility] Tracey Catherine PA-C) Discharge Medications: New oxycodone 5 mg tablet 5 mg PO Q6H PRN (Reason: pain) Qty: 10 0RF Rx Instructions: Partial Fill upon patient request. enoxaparin 40 mg/0.4 mL Syringe 40 mg subcut Q24H Qty: 4 0RF polyethylene glycol 3350 [Miralax] 17 gram/dose powder 17 g PO DAILY PRN (Reason: constipation) Qty: 119 0RF Continued atorvastatin 10 mg tablet 10 mg PO DAILY Qty: 90 1RF Farxiga 5 mg tablet 5 mg PO DAILY Qty: 30 2RF metformin 1,000 mg tablet 1,000 mg PO BID 90 Days Qty: 180 1RF lisinopril 10 mg tablet 10 mg PO DAILY 90 Days Qty: 90 1RF pantoprazole 20 mg tablet,delayed release (DR/EC) 20 mg PO DAILY doxycycline hyclate 100 mg capsule 100 mg PO BID No Action (DME) lancets [OneTouch UltraSoft Lancets] Misc See Rx Instructions .Route Qty: 100 0RF Rx Instructions: As directed (DME) blood-glucose meter [OneTouch Ultra2 Meter] Misc See Rx Instructions .Route Qty: 1 0RF Rx Instructions: As directed (DME) OneTouch Ultra Test Strip See Rx Instructions .Route Qty: 100 2RF Rx Instructions: bid (DME) Dexcom G7 Sensor Device See Rx Instructions .Route Qty: 9 1RF Rx Instructions: Test blood sugar 4 times per day, change every 10 days Discharge Orders: Discharge Order (Routine); Ordered 05/21/24 Ordered By: Georgia Leggett Activity on Discharge: WBAT Stand Alone Forms: Patient Portal Discharge page Print Language: Croatian Care Plan Goals: see below Health Concerns: left femoral neck fracture s/p CRPP 05/19 Plan of Treatment: Gait training, strengthening, ADLs Continue anticoagulation Keep dressing clean, dry, intact, no showering or tub baths Follow up with Orthopedics in 2 weeks lovenox for DVT prophylaxis for 6 weeks, end date 07/01 can use oxycodone for pain control, Assessment: see discharge summary
--- NOTE | 2024-05-21 13:12 | MHC.CM.PN ---
DP: PT HAS BEEN MEDICALLY CLEARED FOR DC TO ACUTE REHAB AT [facility]. [facility] HAS OBTAINED INSURANCE AUTH. BLS TRANSPORT BOOKED FOR 3 PM VIA [facility]. RN/PROVIDER UPDATED.
--- NOTE | 2024-05-21 13:17 | PM.PNORT ---
Subjective Subjective Date of Service: 05/21/24 Interval history: Patient is a 63-year-old female who is postop day 2 status post CRPP of left hip with Dr. Che Patient is feeling well, pain well controlled Has been ambulatory with PT Sitting in chair comfortably Patient will be discharged to short-term rehab No acute complaints or concerns at this time Physical Exam Vital Signs: Vital Signs: Last Vital Signs Temp 97 F 05/21/24 11:55 Pulse 84 05/21/24 11:55 Resp 14 05/21/24 11:55 BP 148/70 H 05/21/24 11:55 Pulse Ox 95 05/21/24 11:55 O2 Del Method Room Air 05/21/24 11:55 O2 Flow Rate 3 05/19/24 12:14 BMI result Body Mass Index 28.0 Extrem: Other: Dressing on left hip clean, dry, intact No tenderness to gentle palpation about the incision site No evidence of saturation of dressing No erythema noted Compartments soft, nontender Distal sensation intact Capillary refill brisk Procedures Date of Service Date of Service: 05/21/24 Progress Note: A&P Assessment and plan (1) Fracture of femoral neck, left: Status: Acute Plan 1. Left femoral neck fracture status post CRPP with Dr. Che DOS 05/19/2024 Patient appears to be recovering well postoperatively Patient is educated about the typical recovery course Continue PT and pain management Discharge to short-term rehab when medically cleared Continue anticoagulation Continue with all other recommendations per Medicine Time Spent With Patient Time: Total time managing care of this patient today ____ minutes. Quality Stroke Does the patient have a stroke diagnosis?: No VTE Prior VTE?: No VTE Risk Level:: Medical - moderate - high VTE Device Contraindication: N/A - Device Ordered VTE Drug Contraindication: Treatment Not Indicated
--- NOTE | 2024-06-08 07:27 | P.OP_ITS ---
Operative Note Operative Note Date of Service: 05/19/24 Narrative: Date of Service: 05/19/24 Pre-op diagnosis: Left femoral neck fracture Post-op diagnosis: same Procedure: CRPP left femoral neck Implants: 6.5 cannulated screws x 3, [place] Surgeon: Willy Che MD Anesthesia: GETA and regional Was an Appliance Line Assembler used for this Procedure?: No Estimated blood loss (mL): 20 IV fluids (mL): 650 Pathology: none sent Condition: stable Disposition: PACU Procedure in detail:? Patient was brought to the operating room and prepped and draped in standard sterile fashion.? Time-out was called to identify proper site procedure proper surgeon and IV antibiotics per weight were administered.? She was positioned on the [place] fracture table with slight internal rotation?and biplanar fluoroscopy confirmed initial fracture reduction.? I then made a stab incision at the level of the lesser. This was a valgus impacted femoral neck fracture. I then placed 3 k-wires in a inverted triangle configuration through the femoral neck and into the femoral head. I used biplanar fluoro to confirm screw position on the AP and lateral projection. I was satisfied with the position of the k-wires I measured and then drilled and then inserted three partially threaded cancellous screws over the wires. I was satisfied with the fracture reduction and screw position. I copiously irrigated closed with absorbable sutures julio and injected 30 mL of into the area of the incisions.? Patient was placed in sterile dressing awakened from anesthesia brought to recovery room stable condition there were no known complications.
== END 2024-05-21 15:10 | disposition skilled nursing facility (03) | DRG 308 ==
LOC: HO.ED 21:36 → HO.EDOVER 21:38 → HO.S3 05-18 17:21
PROVIDERS: Hospitalist; Nurse Practitioner Family; Orthopaedic Surgery; Admitting Provider Student in an Organized Health Care Education/Training Program; Emergency Provider Emergency Medicine; PCP Nurse Practitioner Family; Visit Provider Physician Assistant Medical
PROC: 0QS734Z Reposition Left Upper Femur with Internal Fixation Device, Percutaneous Approach (ICD-10-PCS; principal; 2024-05-19 09:40)
DX: S72.012A Unspecified intracapsular fracture of left femur, initial encounter for closed fracture (principal); E11.42 Type 2 diabetes mellitus with diabetic polyneuropathy; E11.69 Type 2 diabetes mellitus with other specified complication; M86.9 Osteomyelitis, unspecified; W19.XXXA Unspecified fall, initial encounter; I10 Essential (primary) hypertension; E78.2 Mixed hyperlipidemia; K21.9 Gastro-esophageal reflux disease without esophagitis; Z79.84 Long term (current) use of oral hypoglycemic drugs; Z79.899 Other long term (current) drug therapy
CPT/HCPCS: 36415; 70450; 71045; 72125; 73502; 80048; 80053; 82947; 85025; 85610; 86850; 86900; 86901; 97110; 97116; 97162; 97166; 97530; 97535; 99285; C1713; C1758; J0131; J0690; J1100; J1170; J1650; J2270; J2371; J2405; J2704; J2795; J3010

== ENCOUNTER → 2024-05-17 21:18 | Outpatient (BNV) | payer BC, SELFPAY | PROVIDERS: Admitting Provider Student in an Organized Health Care Education/Training Program; Emergency Provider Emergency Medicine; PCP Nurse Practitioner Family; Visit Provider Orthopaedic Surgery | DX: S72.002A Fracture of unspecified part of neck of left femur, initial encounter for closed fracture (principal) | CPT/HCPCS: 27235; 99024; 99222 ==

== ENCOUNTER → 2024-05-17 21:18 | Outpatient (BNV) | payer BC, SELFPAY | PROVIDERS: Admitting Provider Student in an Organized Health Care Education/Training Program; Emergency Provider Emergency Medicine; PCP Nurse Practitioner Family; Visit Provider Student in an Organized Health Care Education/Training Program | DX: S72.002A Fracture of unspecified part of neck of left femur, initial encounter for closed fracture (principal) | CPT/HCPCS: 99222; 99231; 99232; 99239 ==

== ENCOUNTER 2024-06-03 10:28 | Outpatient (AMB) | payer BC, SELFPAY ==
--- NOTE | 2024-06-03 10:31 | MHC.OFFVIS ---
Intake Visit Reasons: Post op - Left hip ORIF 05/19/24 NE Intake Note: Marilu is a 63 year old female who presents today for a post op appointment for her s/p Left hip ORIF 05/19/24 NE. Patient reports having pain when she is over doing it with walking and laying down. Allergies No Known Allergies [No Known Allergies*] Allergy (Verified 06/03/24 10:35) HPI HPI Post op - Left hip ORIF 05/19/24 NE: Details: 63-year-old female who presents in the office today 15 days status post left femoral neck CRPP, which was performed on 05/19/[address] Che. While in the office today, the patient reports continued pain with excessive ambulating and when laying down. [facility] Medical History Cellulitis of left leg COVID-19 vaccine series completed Diabetes Arthritis Anxiety Hx of osteomyelitis History of cholelithiasis GERD (gastroesophageal reflux disease) Dyslipidemia Acquired hammertoes of both feet Peripheral neuropathy Surgical History Hx of foot surgery History of esophagogastroduodenoscopy (EGD) Hx of colonoscopy History of ankle surgery History of hammertoe correction History of skin ulcer Hx of cholecystectomy Family History Father Diabetes mellitus HTN (hypertension) Myocardial infarction Hyperlipidemia Mother Lymphoma Hyperlipidemia Social History Household Members: None Housing: [facility] Are you a primary career advisor to a significant other at home: No Do you presently have visiting nurse or other home services: No Alcohol intake: current Alcohol intake frequency: holidays/special occasions only Patient Tobacco Use Status: Former Tobacco user Tobacco use type: Cigarette e-Cigarette/Vaping Use: Never Used Second Hand Smoke Exposure: Yes Advance Directives Date on File: 02/10/17 service: No Current occupational status: employed Current occupation: [employer] Current occupational exposures/hazards: No Cognitive needs: No Hearing needs: No Vision needs: No Review of Systems Const All systems reviewed & are unremarkable except as noted in HPI and below Physical Exam Const General: cooperative, healthy appearing and no acute distress Resp Effort & Inspection: normal respiratory effort and able to speak in complete sentences Cardio Rate: regular rate Peripheral pulses: Peripheral pulses 2+ throughout GI Palpation (GI): Soft to palpation Skin Lesions: no lesions Rashes: no rashes Extrem Other: Left hip: Incision site is clean, dry, and intact. [place] intact. No surrounding erythema or drainage. No signs of infection. Good ROM. NVI. Assessment & Plan Assessment & Plan (1) Fracture of femoral neck, left: Code(s): S72.002A - Fracture of unspecified part of neck of left femur, initial encounter for closed fracture Category: Medical Plan is a 63-year-old female who presents in the office today 15 days status post left femoral neck CRPP, which was performed on 05/19/[address] Che. While in the office today, the patient reports continued pain with excessive ambulating and when laying down. Maris were removed, steri-strips were applied. The patient would like to transition to outpatient physical therapy at [facility] in [place]. A referral has been placed in the office today. She is currently working from home and may continue to do so. She was given a work note stating this in the office. We discussed her possibly returning to work sooner and if she wishes to do so she will contact the office. I will be happy to update the work note at that time. Follow up will be in 4 weeks with repeat X-ray, or sooner if needed. Orders: Orders PT Evaluation and Treatment Today S72.002A - Fracture of unspecified part of neck of left femur, initial encounter for closed fracture Patient Instructions: Scribed by Miriam Burger medical assisting program director, for Tracey Catherine PA-C on 06/03/24 at 10:42 am EST. Corrections by Heide Gallego medical assisting program director, for Tracey DILLARD-Rosaura on 06/03/2024 at 11:39am, EST.? Coding Level of Care Code Global (85273) Diagnoses Fracture of femoral neck, left S72.002A
== END 2024-06-03 10:59 | disposition home or self-care (01) ==
PROVIDERS: PCP Nurse Practitioner Family; Visit Provider Physician Assistant
DX: S72.002A Fracture of unspecified part of neck of left femur, initial encounter for closed fracture (principal)
CPT/HCPCS: 99024

== ENCOUNTER 2024-06-11 07:29 | Outpatient (REF) | payer BC, SELFPAY ==
[2024-06-11 09:56] LABS: Appearance Urine Cloudy; Color Urine Yellow; Glucose Urine UA Negative (Negative); Leukocyte Esterase Urine Moderate (2+) (Negative); Nitrite Urine Negative (Negative); PH 5.5 (5.0-9.0); UMIC TRIGGER UACC YES; Urine Blood Negative (Negative); Urine Ketones Negative (Negative); Urine Protein Negative (Neg-Trace)
[2024-06-11 09:59] LABS: Bacteria Urine 1+ (None Seen); Hyaline Casts Urine 0-2 /LPF (0-2); RBC Urine 0-2 /HPF (0-2); UACC Culture Trigger YES
[2024-06-11 10:00] LABS: MANUAL DIFF FLAG NO
[2024-06-11 10:13] LABS: Basophils Percent Auto 0.6 % (0-2); Eosinophils Absolute Auto 0.1 X10*3/uL (0.0-0.4); Eosinophils Percent Auto 1.8 % (0-4); Hematocrit 39.8 % (37.0-47.0); Hemoglobin 13.8 g/dl (12.0-16.0); Imm Gran Abs Auto 0.01 X10*3/uL (0.00-0.03); Imm Gran Pct Auto 0.2 % (0.0-0.4); Lymphocytes Absolute Auto 2.6 X10*3/uL (1.2-4.9); Lymphocytes Percent Auto 38.4 % (20-40); Mean Corpuscular HGB Conc 34.7 g/dl (31.0-35.0); Mean Corpuscular Hemoglobin 29.5 pg (27.0-33.0); Monocytes Absolute Auto 0.5 X10*3/uL (0.1-1.2); Monocytes Percent Auto 7.5 % (2-11); Neutrophils Absolute Auto 3.4 x10*3/uL (2.0-8.3); Neutrophils Percent Auto 51.5 % (45-73); Platelet Count 457 X10*3/uL (160-400); Red Blood Count 4.68 X10*6/uL (4.20-5.50); Red Cell Distribution Width 13.5 % (11.0-16.0); White Blood Count 6.6 X10*3/uL (4.8-10.8)
[2024-06-11 10:33] LABS: Alanine Aminotransferase 25 U/L (0-31); Albumin Level 4.4 g/dL (3.5-5.0); Alkaline Phosphatase 81 U/L (39-117); Anion Gap 12 (12-20); Aspartate Amino Transferase 16 U/L (5-31); Bilirubin Total 0.6 mg/dL (0.0-1.0); Blood Urea Nitrogen 9 mg/dL (9-16); Calcium 10.2 mg/dL (8.4-10.2); Carbon Dioxide 25 mmol/L (22-29); Chloride 108 mmol/L (96-108); Cholesterol 166 mg/dL (<200); Estimated Average Glucose 157 mg/dL; Estimated Glomerular Filt Rate > 60; Glucose Fasting 167 mg/dL (60-99); HDL Cholesterol 41 mg/dL (>40); Hemoglobin A1c % 7.1 % (<6.0); LDL Cholesterol Calculated 89 mg/dL (<100); Potassium 4.2 mmol/L (3.3-5.1); Sodium 141 mmol/L (135-145); Total Protein 7.7 g/dL (6.5-8.0); Triglycerides 181 mg/dL (<150)
[2024-06-11 10:50] LABS: TSH reflex Free T4 1.62 uIU/mL (0.32-4.0); Vitamin D 25-OH Total 35.2 ng/mL (>30)
[2024-06-11 11:00] LABS: Creatinine Urine 141.04 mg/dL; Microalbum/Creatinine Ratio Ur 7.7 ug/mg cr (<30)
== END 2024-06-11 07:30 | disposition home or self-care (01) ==
LOC: HO.HMGCLDS 07:29
PROVIDERS: PCP Nurse Practitioner Family; Visit Provider Nurse Practitioner Family
DX: Z00.00 Encounter for general adult medical examination without abnormal findings (principal); E55.9 Vitamin D deficiency, unspecified; E11.9 Type 2 diabetes mellitus without complications
CPT/HCPCS: 36415; 80053; 80061; 81001; 82043; 82306; 82570; 83036; 84443; 85025; 87086

== ENCOUNTER 2024-06-16 07:29 | Outpatient (AMB) | payer BC, SELFPAY ==
--- NOTE | 2024-06-16 07:33 | A.OFFPC_ITS ---
Vital Signs 06/16/24 07:37 Height 5 ft 7 in Weight 171 lb BMI 26.8 BP 120/76 Blood Pressure Location Lt brachial Position Sitting Pulse 76 Pulse Source Pulse Oximeter Pulse Oximetry (%) 96 Oxygen Delivery Method Room Air Intake Visit Reasons: PE - see comments Intake Note: Pt is here today for her PE Allergies No Known Allergies [No Known Allergies*] Allergy (Verified 06/16/24 08:28) Medication List - Last Reconciled 06/16/24 by FIOR MartínezP- apixaban (Eliquis) 5 mg PO BID 21 days atorvastatin 10 mg PO DAILY blood sugar diagnostic (OneTouch Ultra Test strips) bid blood-glucose meter (StromedixTouch Ultra2 Meter) As directed dapagliflozin propanediol 10 mg PO DAILY Dexcom G7 Sensor (blood-glucose sensor) Test blood sugar 4 times per day, change every 10 days NS lancets (OneTouch UltraSoft Lancets) As directed lisinopril 10 mg PO DAILY 90 days metformin 1,000 mg PO BID 90 days pantoprazole 20 mg PO DAILY Tobacco use date assessed: 06/16/24 Dental Screening Dental Screen Date: 06/16/24 Did you have a dental visit in the last 12 months?: Yes Did you have a dental problem in the last 6 months where you did not have access to dental care?: No Was dental information given to patient?: Patient has dentist HPI PE - see comments HPI Details Pt is here for a PE. Will order labs. Due for colon screen, pt had a previous appointment but did not go. Will reach out to GI. Due for mammo, will order. Pt is a diabetic, on an DEE and a statin, Last A1C was 7.1. Microalbumin is up to date. Denies polyuria and polydipsia, does report neuropathy. Pt denies any signs and symptoms of hypoglycemia and does know how to correct it. Will increase farxiga from 5mg to 10mg. Pt had a left femoral neck fracture that was repaired on 05/19. She is starting PT on 06/21. Pt's next ortho follow up is on 07/02. Knows she needs to get her mammogram (pt previously cancelled this), pt cancelled her last GI appt (colon screen), will contact Gastro to see about getting her back on their schedule. Pt follows up with nephrology. Pt previously refused pneumonia vaccines. [facility] Medical History Cellulitis of left leg COVID-19 vaccine series completed Diabetes Arthritis Anxiety Hx of osteomyelitis History of cholelithiasis GERD (gastroesophageal reflux disease) Dyslipidemia Acquired hammertoes of both feet Peripheral neuropathy Surgical History Hx of foot surgery History of esophagogastroduodenoscopy (EGD) Hx of colonoscopy History of ankle surgery History of hammertoe correction History of skin ulcer Hx of cholecystectomy Family History Father Diabetes mellitus HTN (hypertension) Myocardial infarction Hyperlipidemia Mother Lymphoma Hyperlipidemia Social History Household Members: None Housing: Condominium Are you a primary wild animal caretaker to a significant other at home: No Do you presently have visiting nurse or other home services: No Alcohol intake: current Alcohol intake frequency: holidays/special occasions only Patient Tobacco Use Status: Former Tobacco user Tobacco use type: Cigarette e-Cigarette/Vaping Use: Never Used Second Hand Smoke Exposure: Yes Advance Directives Date on File: 02/10/17 service: No Current occupational status: employed Current occupation: [employer] Current occupational exposures/hazards: No Cognitive needs: No Hearing needs: No Vision needs: No Questionnaire PHQ-9 Over the last 2 weeks, how often have you been bothered by any of the following problems? 40275 - PHQ-9 Billing: Patient declined-do not bill Source: Developed by Drs. Jaiden Olvera, Marcelle Munoz, Ihsan Almeida and colleagues, with an educational tip from [employer]. Thrive Questionnaire Date Thrive assessed: 05/18/24 HAVEN-7 AMB Questionnaire HAVEN-7 Date HAVEN - 7 assessed: 04/25/22 Source: Developed by Drs. Jaiden Olvera, Marcelle Munoz, Ihsan Almeida and colleagues, with an educational tip from [employer]. HAVEN-7 Assessment Billing HAVEN-7 Assessment Tool: pt declined-do not bill Review of Systems Const Denies chills and Denies fever(s) Eyes Denies blurry vision ENT Denies vertigo, Denies dizziness and Denies sore throat Card Denies chest pain at rest, Denies chest pain with activity, Denies diaphoresis, Denies dyspnea and Denies dyspnea on exertion Resp Denies cough, Denies dyspnea, Denies dyspnea on exertion and Denies wheezing GI Denies abdominal pain, Denies melena, Denies hematochezia, Denies constipation, Denies diarrhea and Denies loose stools Denies hematuria Musc Denies numbness and Denies tingling Skin/Breast Denies lesions Neuro Denies vertigo, Denies dizziness, Denies numbness and Denies tingling Psych Denies anxiety, Denies depression, Denies homicidal ideation, Denies suicidal ideation and Denies other (substance abuse) Aller/Immun Denies wheezing Physical exam (Primary Care) Vital Signs: Last Vital Signs Pulse 76 06/16/24 07:37 BP 120/76 06/16/24 07:37 Pulse Ox 96 06/16/24 07:37 Oxygen Delivery Method Room Air 06/16/24 07:37 BMI result Body Mass Index 26.8 Tobacco/Smoking Status: Tobacco use Status Tobacco use date assessed 06/16/24 06/16/24 07:34 Patient Tobacco Use Status Former Tobacco user 06/16/24 07:34 Tobacco use type Cigarette 06/16/24 07:34 e-Cigarette/Vaping Use Never Used 06/16/24 07:34 Thrive Assessment: Date of Thrive Assessment Date Thrive assessed 05/18/24 06/16/24 07:34 Const Other: using four pointed cane General: cooperative Nutritional Appearance: well nourished Orientation/consciousness: patient oriented x3 HENMT Head: Yes normal to inspection, Yes normocephalic and Yes atraumatic Ears: TM's normal bilaterally Eyes General: appearance normal, both eyes and all related structures Alignment and Position: alignment normal and position normal Neck Neck: Yes normal visual inspection, Yes no lymphadenopathy and Yes supple Resp Effort & Inspection: normal respiratory effort Auscultation: clear to auscultation bilaterally Cardio Rate: regular rate Rhythm: regular rhythm Heart sounds: S1 normal heart sound present, S2 normal heart sound present and no murmurs GI Palpation (GI): Soft to palpation and nontender Auscultation: normal bowel sounds Skin Rashes: no rashes Neuro General: patient oriented x3, moves all extremities, no focal motor deficits and deep tendon reflexes 2+ bilaterally Romberg Test: Negative Extrem Other: bilat feet: no sensation with use of monofilament. left hip with small healing incision, no signs of infection. Small scab noted to plantar left first toe, NO SIGNS OF CURRENT INFECTION, + dorsalis pedis to left Psych Appearance: grossly normal Mental Status: mental status grossly normal Speech and movement: Normal speech and movement present Affect: normal affect Attitude: cooperative Thought process: Normal thought process present Thought content: Normal thought content present Insight: Good insight present (Psych) Judgement: Good judgement present (Psych) Coding Level of Care Code Est Pt Prev Care 40-64y(48116) Diagnoses Fracture of femoral neck, left S72.002A Diabetes E11.9 Vitamin D deficiency E55.9 Encounter for routine adult physical exam with abnormal findings Z00.01 Assessment & Plan Assessment & Plan (1) Fracture of femoral neck, left: Code(s): S72.002A - Fracture of unspecified part of neck of left femur, initial encounter for closed fracture Category: Medical Plan: Following up with ortho and PT (2) Diabetes: Code(s): E11.9 - Type 2 diabetes mellitus without complications Category: Medical Plan: Labs ordered, increasing farxiga from 5mg to 10mg (3) Vitamin D deficiency: Code(s): E55.9 - Vitamin D deficiency, unspecified Category: Medical Plan: Labs ordered (4) Encounter for routine adult physical exam with abnormal findings: Code(s): Z00.01 - Encounter for general adult medical examination with abnormal findings Category: Medical Plan The patient agreed to the use of a medical staff credentialing coordinator for this encounter. Scribed for KEV Rodrigues by Malaika Daily medical staff credentialing coordinator, on 06/16/2024 at 07:45 EST. Orders: Orders MM screening mammo BI Today Z12.31 - Encounter for screening mammogram for malignant neoplasm of breast Comprehensive [place]. Panel Fast Today E11.9 - Type 2 diabetes mellitus without complications TSH reflex Free T4 Today E11.9 - Type 2 diabetes mellitus without complications UA CC w/rflx Micro + Cult Today E11.9 - Type 2 diabetes mellitus without complications Lipid Panel Today E11.9 - Type 2 diabetes mellitus without complications Complete Blood Count Auto Diff Today E11.9 - Type 2 diabetes mellitus without complications Vitamin D 25-OH Total Today E55.9 - Vitamin D deficiency, unspecified Medications: Changed From dapagliflozin propanediol (Farxiga) 5 mg PO DAILY 90 tabs 0RF To dapagliflozin propanediol 10 mg PO DAILY 90 tabs 0RF
[2024-06-16 07:37] VITALS: BP 120/76; PULSE 76; O2SAT 96; BMI 26.8
== END 2024-06-16 11:07 | disposition home or self-care (01) ==
PROVIDERS: PCP Nurse Practitioner Family; Visit Provider Nurse Practitioner Family
DX: S72.002A Fracture of unspecified part of neck of left femur, initial encounter for closed fracture (principal); E11.9 Type 2 diabetes mellitus without complications; E55.9 Vitamin D deficiency, unspecified; Z00.01 Encounter for general adult medical examination with abnormal findings

== ENCOUNTER → 2024-06-16 07:29 | Outpatient (BNVA) | payer BC, SELFPAY | PROVIDERS: PCP Nurse Practitioner Family; Visit Provider Nurse Practitioner Family ==

== ENCOUNTER 2024-07-02 11:38 | Outpatient (AMB) | payer BC, SELFPAY ==
--- NOTE | 2024-07-02 11:45 | MHC.OFFVIS ---
Intake Visit Reasons: PO - Left hip ORIF 05/19/24 NE w/xray Intake Note: Marilu is a 63 year old female who presents today for a post op appointment for her s/p Left hip ORIF 05/19/24 NE. Patient reports she is feeling very sore and pain. Also she just came out of physical therapy. Allergies No Known Allergies [No Known Allergies*] Allergy (Verified 07/02/24 11:46) HPI HPI PO - Left hip ORIF 05/19/24 NE w/xray: Details: 63-year-old female who presents in the office today 6 weeks status post CRPP left femoral neck which was performed on 05/19/[address] Che. While in the office today, the patient reports experiencing severe soreness and pain in the left hip. She mentions she recently completed physical therapy. [facility] Medical History Cellulitis of left leg COVID-19 vaccine series completed Diabetes Arthritis Anxiety Hx of osteomyelitis History of cholelithiasis GERD (gastroesophageal reflux disease) Dyslipidemia Acquired hammertoes of both feet Peripheral neuropathy Surgical History Hx of foot surgery History of esophagogastroduodenoscopy (EGD) Hx of colonoscopy History of ankle surgery History of hammertoe correction History of skin ulcer Hx of cholecystectomy Family History Father Diabetes mellitus HTN (hypertension) Myocardial infarction Hyperlipidemia Mother Lymphoma Hyperlipidemia Social History Household Members: None Housing: Condominium Are you a primary pet care worker to a significant other at home: No Do you presently have visiting nurse or other home services: No Alcohol intake: current Alcohol intake frequency: holidays/special occasions only Patient Tobacco Use Status: Former Tobacco user Tobacco use type: Cigarette e-Cigarette/Vaping Use: Never Used Second Hand Smoke Exposure: Yes Advance Directives Date on File: 02/10/17 service: No Current occupational status: employed Current occupation: [employer] Current occupational exposures/hazards: No Cognitive needs: No Hearing needs: No Vision needs: No Review of Systems Const All systems reviewed & are unremarkable except as noted in HPI and below Physical Exam Const General: cooperative, healthy appearing and no acute distress Resp Effort & Inspection: normal respiratory effort and able to speak in complete sentences Cardio Rate: regular rate Peripheral pulses: Peripheral pulses 2+ throughout GI Palpation (GI): Soft to palpation Skin Lesions: no lesions Rashes: no rashes Extrem Other: Left hip: Able to perform straight leg raise. Good internal and external rotation. Able to dorsiflex and plantarflex. NVI. Assessment & Plan Assessment & Plan (1) Fracture of femoral neck, left: Code(s): S72.002A - Fracture of unspecified part of neck of left femur, initial encounter for closed fracture Category: Medical Plan Ms. Vick is a 63-year-old female who presents in the office today 6 weeks status post CRPP left femoral neck which was performed on 05/19/[address] Che. While in the office today, the patient reports experiencing severe soreness and pain in the left hip. She mentions she recently completed physical therapy. The patient is struggling with the left hip pain. She is reluctant to take the Percocet that was originally prescribed for pain. She is seeking an alternative medication with less potency than Percocet. I recommended her to take tramadol for her pain. I have sent a prescription for tramadol 50 mg Q8H PRN to the pharmacy. She will continue to attend physical therapy sessions. Follow-up will be in 6 weeks, or sooner if needed. X-rays of the left hip which were obtained, while in the office today and were reviewed by me, Tracey Catherine PA-C, revealed: Intact orthopedic hardware with routine healing. Orders: Orders XR pelvis 1-2V 07/02/24 S72.002A - Fracture of unspecified part of neck of left femur, initial encounter for closed fracture Medications: New tramadol 50 mg PO Q8H PRN 21 tabs 0RF pain 7 days Patient Instructions: Scribed by Miriam Burger medical assistant instructor, for Tracey Catherine PA-C on 07/02/24 at 11:51 am EST. Coding Level of Care Code Global (44614) Diagnoses Fracture of femoral neck, left S72.002A
== END 2024-07-02 12:40 | disposition home or self-care (01) ==
PROVIDERS: PCP Nurse Practitioner Family; Visit Provider Physician Assistant
DX: S72.002A Fracture of unspecified part of neck of left femur, initial encounter for closed fracture (principal)
CPT/HCPCS: 99024

== ENCOUNTER 2024-07-17 08:10 | Outpatient (REF) | payer BC, SELFPAY ==
--- NOTE | ~2024-07-17 | MM_ITS ---
EXAMINATION: MM SCREENING DIGITAL BREAST TOMOSYNTHESIS, BILATERAL CLINICAL INFORMATION: Screening. Asymptomatic. COMPARISON: Mammography: Comparison is made with available priors TECHNIQUE: Digital breast mammography with tomosynthesis is performed in both the craniocaudal and mediolateral oblique views along with computer-aided detection (CAD). FINDINGS: There are scattered areas of fibroglandular density (ACR BI-RADS breast composition Category b). There are no significant masses, abnormal calcifications, or other abnormalities. MM/MM tomosynthesis screening BI IMPRESSION: No mammographic evidence of malignancy. ASSESSMENT: BI-RADS BI-RADS 1 - Negative RECOMMENDATION: Routine annual mammography screening. 1 year F/U This examination should not preclude the clinical evaluation of a suspicious palpable abnormality. This patient's information was entered into a reminder system with a target due date for their next mammogram. Electronically signed by: Lisa Rich DO 07/27/2024 09:23 AM DENISE
== END 2024-07-17 08:11 | disposition home or self-care (01) ==
LOC: HO.MAMMO 08:10
PROVIDERS: PCP Nurse Practitioner Family; Visit Provider Nurse Practitioner Family
DX: Z12.31 Encounter for screening mammogram for malignant neoplasm of breast (principal)
CPT/HCPCS: 77063; 77067

== ENCOUNTER → 2024-07-17 08:15 | Outpatient (BNV) | payer BC, SELFPAY | PROVIDERS: PCP Nurse Practitioner Family; Visit Provider Internal Medicine | DX: Z12.31 Encounter for screening mammogram for malignant neoplasm of breast (principal) | CPT/HCPCS: 77063; 77067 ==

== ENCOUNTER 2024-08-09 07:37 | Outpatient (AMB) | payer BC, SELFPAY ==
--- NOTE | 2024-08-09 07:08 | MHC.OFFVIS ---
Intake Visit Reasons: Discuss meningioma-Android [phone] Allergies No Known Allergies [No Known Allergies*] Allergy (Verified 08/09/24 07:25) Medication List - Last Reconciled 08/09/24 by CORNELIUS Martínez apixaban (Eliquis) 5 mg PO BID 21 days atorvastatin 10 mg PO DAILY blood sugar diagnostic (OneTouch Ultra Test strips) bid blood-glucose meter (OneTouch Ultra2 Meter) As directed dapagliflozin propanediol 10 mg PO DAILY Dexcom G7 Sensor (blood-glucose sensor) Test blood sugar 4 times per day, change every 10 days NS lancets (OneTouch UltraSoft Lancets) As directed lisinopril 10 mg PO DAILY 90 days metformin 1,000 mg PO BID 90 days pantoprazole 20 mg PO DAILY tramadol 50 mg PO Q8H PRN 7 days HPI HPI Discuss meningioma-Android [phone]: Details: History of Present Illness The patient is a 64-year-old female presenting with concerns regarding recent imaging findings. On May 17, coinciding with , the patient experienced a fall resulting in a neck injury. During the evaluation, a computed tomography (CT) scan of the brain and cervical spine was performed. The CT of the brain revealed generalized cerebral volume loss, which is noted to be typical for the patient's age, with no acute hemorrhagic events observed. Concurrent evaluation of the cervical spine indicated degenerative changes, which were anticipated given the patient's age. Notably, the CT highlighted a 1.6 cm partially calcified meningioma located along the right frontal lobe. The meningioma, considered likely benign, was not initially reported as a concern by the radiology team. The patient/myself was unaware of this condition prior to the scan. Social History - The patient is currently undergoing therapy. - Recent challenges with physical mobility due to neck-related issues have been hinted at through the conversation. - The patient acknowledges the importance of follow-up care but expressed reluctance initially about additional testing. Review of Systems - Neurological: Denies headache, confusion, or acute changes in mental status. Physical Exam Results - CT Brain: Generalized cerebral volume loss; partially calcified meningioma, right frontal lobe measuring 1.6 cm. - CT Cervical Spine: Degenerative changes without acute findings. Plan - Calcified meningioma: Proceed with magnetic resonance imaging MRI) for further evaluation of the meningioma to better assess its characteristics and potential impact. Referral to a neurosurgical specialist for a comprehensive evaluation to ascertain the need for any intervention, despite current benign assessment, is recommended following MRI results. - Generalized cerebral volume loss: No immediate intervention required; monitoring per standard age-related changes. - Degenerative changes of the cervical spine: Continue with therapy and conservative management including physical rehabilitation. Patient was informed and verbally consented to the use of an ambient scribe for clinic note documentation during this visit. Discussion Notes I discussed with the patient the findings from the recent CT scan including generalized cerebral volume loss, degenerative changes in the cervical spine, and the presence of a calcified meningioma in the right frontal lobe. I explained that the meningioma is likely benign and typically not a cause for immediate concern, but further assessment is prudent for confirmation. An MRI was recommended to obtain a more detailed evaluation of the meningioma. I advised the patient to proceed with managing the MRI scheduling and assured her that a referral to a neurosurgeon would follow based on the MRI outcomes. I addressed the patient's worry, emphasizing that this finding is often incidental and not immediately alarming. The patient expressed understanding and agreement with the plan for close monitoring and further evaluation. She agreed to contact central scheduling at [facility] to arrange for the MRI. Patient Instructions - Contact central scheduling at [facility] to arrange an MRI of the brain. - Follow up with the specialist post-MRI for further evaluation. - Continue with current therapy and physical rehabilitation for neck-related issues. - Maintain regular communication regarding any new or worsening symptoms. - Avoid engaging in activities that may exacerbate neck pain or lead to further injury. COUNT INCLUDES THE [facility] Medical History Cellulitis of left leg COVID-19 vaccine series completed Diabetes Arthritis Anxiety Hx of osteomyelitis History of cholelithiasis GERD (gastroesophageal reflux disease) Dyslipidemia Acquired hammertoes of both feet Peripheral neuropathy Surgical History Hx of foot surgery History of esophagogastroduodenoscopy (EGD) Hx of colonoscopy History of ankle surgery History of hammertoe correction History of skin ulcer Hx of cholecystectomy Family History Father Diabetes mellitus HTN (hypertension) Myocardial infarction Hyperlipidemia Mother Lymphoma Hyperlipidemia Social History Household Members: None Housing: Condominium Are you a primary resident care associate to a significant other at home: No Do you presently have visiting nurse or other home services: No Alcohol intake: current Alcohol intake frequency: holidays/special occasions only Patient Tobacco Use Status: Former Tobacco user Tobacco use type: Cigarette e-Cigarette/Vaping Use: Never Used Second Hand Smoke Exposure: Yes Advance Directives Date on File: 02/10/17 service: No Current occupational status: employed Current occupation: [employer] Current occupational exposures/hazards: No Cognitive needs: No Hearing needs: No Vision needs: No Telehealth Telehealth Telehealth Platform: Telephone Location of provider rendering services: practice address Location of patient: address on file Patient Identification confirmed using: Name, : Yes Telehealth method: voice only Patient verbally consented to treatment: Yes Patient verbally consented to billing insurance company: Yes Patient informed of any privacy concerns related to visit: Yes Minutes spent on Phone/Video with Pt.: 10 Assessment & Plan Assessment & Plan (1) Meningioma: Comment: seen on ct, pt agrees to MRI Code(s): D32.9 - Benign neoplasm of meninges, unspecified Category: Medical Plan . Coding Level of Care Code Tele Est Pt Level 3 (67666) Diagnoses Meningioma D32.9
--- OUTSIDE RECORDS SUMMARY | 2024-08-09 07:42 | XMS_ITS | Patient Health Record ---
Author Organization [facility] jyotsna Hallwood Address [address] [place] [address] Care Team Providers Care Procurement Agent Name Role Phone Marcelo Solis Primary Care Provider Unav ailable Igor Barnes Unavailable [phone] Allergies No Known Allergies Reason For Referral Diagnosis 1 Other hammer toe(s) (acquired), left foot (M20.42) Diagnosis 2 Other hammer toe(s) (acquired), right foot (M20.41) Diagnosis 3 Osteomyelitis of toe of left foot (M86.9) Diagnosis 4 Primary osteoarthrit is, right ankle and foot (M19.071) Diagnosis 5 Primary osteoarthrit is, left ankle and foot (M19.072) Diagnosis 6 Non-pressure chronic ulcer of other part of left foot limited to breakdown of skin (L97.521) Diagnosis 7 Non-pressure chronic ulcer of other part of right foot limited to breakdown of skin (L97.511) Diagnosis 8 Non-pressure chronic ulcer right lower leg, limited to breakdown skin (L97.911) Diagnosis 9 Type 2 diabetes luba itus with diabetic polyneuropathy (E11.42) Referring Provider First Name Marcelo Referring Provider Last Name Socorro Referred Carolin [facility] [place] Referred Provider Igor Barnes Referred Address [address] [facility],[place],[address], Referred Provider Specialty Podiatry Referral Priority Routine Medications Medication SIG (Take, Route, Frequency, Duration) Notes Start Date End Date Status PriLOSEC OTC 20 MG 1 tablet Orally Once a day for 30 day(s) Active Amoxicillin-Pot Clavulanate 875-125 MG 1 tablet Orally Twice a day for 10 day(s) Not-Taking metFORMIN HCl 1000 MG as directed Orally 2 tab o nce a day Active Work Note . . . this patient is released to work today 08/28/2015 Not-Taking Lisinopril Active Work Note . . . patient is dsiabled from work until 08/24/15 08/21/2015 Not-Taking Ibuprofen 800 MG 1 tablet with food or milk as needed Orally Three times a day for 30 days Active Cipro 500 MG 1 tablet Orally Twice a day for 10 day(s) 08/21/2015 Not-Taking Gabapentin Active LFT . . . . for . 04/19/2014 Not-Rocky ing Work Note . . . . for . 12/01/2012 Not-T aking Augmentin 875-125 MG 1 tablet Orally every 12 hrs for 10 day(s) 08/21/2015 Not-Taking Doxycycline Monohydrate 100 MG 1 capsule Orally every 12 hrs for 10 days Not-Taking Work Note . . . 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 . . Medical from jury duty today, 07/30/21 for 1 days 07/30/2021 Not-Taking Amoxicillin 10 days Not-Taki ng Vitamin D3 Active Augmentin 500-125 MG 1 tablet Orally every 8 hrs for 30 days 03/15/2020 Not-Taking Gabapentin 400 MG 1 capsule Orally Once a day hs for 30 days 03/15/2020 Not-Taking Augmentin 500-125 MG 1 tablet Orally every 8 hrs for 14 days 08/03/2020 Not-Taking Bactrim DS 800-160 MG 1 tablet Orally every 12 hrs for 10 day(s) 08/16/2020 Not-Taking Naproxen 500 MG 1 tablet with food or milk as needed Orally every 12 hrs for 90 days 03/15/2020 Not-Taking Gabapentin 400 MG 1 capsule Orally Once a day for 30 day(s) 11/01/2020 Not-Taking Augmentin 500-125 MG 1 tablet Orally every 8 hrs for 10 days 11/01/2020 Active Atorvastatin Calcium Active Alpha Lipoic Acid Ac tive Ertapenem Sodium Not -Taking Omeprazole 20 MG 1 capsule Orally Once a day for 30 day(s) Not-Taking Doxycycline 100mg No t-Taking Augmentin 500-125 MG 1 tablet Orally every 8 hrs for 30 days Not-Taking Immunizations Vaccine Route Administration Date Status Comme nts COVID-19 Kalyan & Kalyan/Susan Unknown 12/23/2020 A dministered Influenza Unknown 04/17/2020 Administered Social History Tobacco Use: Social History Observation Description Date Details (start date - stop date) Former Smoker NA - NA Tobacco Use/Smoking Question Answer Notes Are you a: former smoker Additional Findings: Tobacco Non-User Current no n-smoker Alcohol Screen Question Answer Notes Did you have a drink containing alcohol in the p ast year? Yes Points 0 Interpretation Negative Tobacco use other than smoking: Question Answer Notes Are you an other tobacco user? No Problems Problem Type SNOMED Code ICD Code Onset Dates Problem Status W/U Status Risk Notes Problem Localized, primary osteoarthritis of the ankle and/or foot (830813584) Primary osteoarthritis, right ankle and foot (M19.071) Active confirmed Problem Localized, primary osteoarthritis of the ankle and/or foot (732470644) Primary osteoarthritis, left ankle and foot (M19.072) Active confirmed Problem Polyneuropathy due to type 2 diabetes mellitus (140148589) Type 2 diabetes mellitus with diabetic polyneuropathy (E11.42) Active confirmed Problem Non-pressure chronic ulcer of other part of left foot limited to breakdown of skin (L97.521) Active confirmed Problem Non-pressure chronic ulcer of other part of right foot limited to breakdown of skin (L97.511) Active confirmed Problem Acquired hammer toe of right foot (0363205887010961) Other hammer toe(s) (acquired), right foot (M20.41) Active confirmed Problem Acquired hammer toe of left foot (4733358654219473) Other hammer toe(s) (acquired), left foot (M20.42) Active confirmed Problem 54757691 Non-pressure ulcer of right lower extremity, limited to breakdown of skin (L97.911) Active confirmed Problem 79741781 Osteomyelitis of toe of left foot (M86.9) Active confirmed Problem 12333009306690961 Non-pressure chronic ulcer right lower leg, limited to breakdown skin (L97.911) Active confirmed Problem 788365245 Osteomyelitis of toe of right foot (M86.9) Active confirmed Problem 211582554 Hammertoe of right foot (M20.41) Active confirmed Encounters Encounter Location Date Provider Diagnosis [facility] [address] [place] [address] 12/08/2023 Igor Barnes Plan Of Treatment Pending Test Test Name Order Date X ray : Foot, left 3V 03/09/2013 X ray : Foot, left 3V 09/30/2018 X ray : Foot, left 3V 11/10/2018 X ray : Foot, left 3V 05/14/2019 X ray : Foot, left 3V 05/24/2019 X ray : Foot, left 3V 06/09/2019 X ray : Foot, left 3V 08/09/2019 X ray : Foot, left 3V 07/15/2019 X ray : Foot, left 3V 03/27/2020 X ray : Foot, left 3V 04/10/2020 X ray : Foot, left 3V 04/20/2020 X ray : Foot, left 3V 10/12/2020 X ray : Foot, left 3V 07/02/2021 X ray : Foot, left 3V 07/18/2021 X ray : Foot, left 3V 07/30/2021 X ray : Foot, left 3V 08/15/2021 X ray : Foot, left 3V 01/28/2022 X ray : Foot, right 3V 10/12/2020 X ray : Foot, right 3V 11/20/2020 X ray : Foot, right 3V 12/20/2020 X ray : Foot, right 3V 08/03/2020 X ray : Foot, right 3V 04/20/2020 X ray : Foot, right 3V 04/10/2020 X ray : Foot, right 3V 02/10/2020 X ray : Foot, right 3V 03/27/2020 X ray : Foot, right 3V 12/01/2012 X ray : Foot, right 3V 08/21/2015 94586-VPDIRRC NAIL, 1-5 09/20/2015 27238- Debride <25 sq cm 02/23/2013 57021- Debride <25 sq cm 08/28/2015 88704- Debride <25 sq cm 09/20/2015 07734- Debride <25 sq cm 04/09/2013 06598- Debride <25 sq cm 04/23/2013 99697- Debride <25 sq cm 04/19/2014 06074- Debride <25 sq cm 03/09/2013 67719- Debride <25 sq cm 08/16/2020 15402- Debride <25 sq cm 08/30/2020 85711- Debride <25 sq cm 11/10/2018 75706- Debride <25 sq cm 10/03/2020 62341- Debride <25 sq cm 02/01/2021 40625-KSWMPGS SKIN/TISSUE 04/23/2021 17585-PAOQBLP SKIN/TISSUE 05/07/2021 88276-MHYBQEZ SKIN/TISSUE 01/28/2022 13814-DITBUWI SKIN/TISSUE 08/03/2020 63544-EURJDHB SKIN/TISSUE 10/03/2020 52318-MZLPSRF SKIN/TISSUE 2019 30196-FLRVSYC SKIN/TISSUE 03/26/2013 73629-RZVLZMS SKIN/TISSUE 12/15/2012 19358-SLIRCLS SKIN/TISSUE 08/21/2015 48086-KMPBDBG SKIN/TISSUE 09/29/2019 44956-ZQTNSPC SKIN/TISSUE 01/12/2020 47901-PZXFPII SKIN/TISSUE 04/20/2019 13072-HTSLESR SKIN/TISSUE 05/03/2019 01528-GXFQWPX SKIN/TISSUE 05/14/2019 15773-BRZGRBB SKIN/TISSUE 09/30/2018 36777-VCEHUIP SKIN/TISSUE 10/13/2018 03709-HTKGEPT SKIN/TISSUE 10/22/2018 25344 I&D ABSCESS- SIMPLE,SINGLE 013 08317 I&D ABSCESS- SIMPLE,SINGLE 021 31293-BKOA SKIN LESIONS, 2 TO 4 02/05/20 22 47925-AAMY SKIN LESIONS, 2 TO 4 08/05/20 22 44384-ZITYWSYB OF HEMATOMA/FLUID 020 44732-LNTQIZFE OF HEMATOMA/FLUID 019 64142-Ayqhkewjz, Toes 02/23/2013 67317-Xnouscyoh, Toes 04/09/2013 65231-Zvtqhjapk, Toes 03/26/2013 Insurance Providers Payer Name Payer Address Payer Phone Subscriber Number Group Number Insured Name Patient Relationship to Insured Coverage Start Date Coverage End Date [facility] [address] [place] [address] [phone] [id number] Marilu Freitas Self - patient is the insured 4 Medical (General) History Medical History History ICD Code chicken pox Reflux mild LFT's Gallstones Gastroesophageal reflux disease (GERD) Anterior uterine fibroid Peripheral neuropathy FEET Right ankle fx Arthritis Broken bones Gall bladder problems Headaches/Migraines Neuropathy Poor circulation Osteomylitis Diabetic type ll Surgical History Surgery Date(Month/Year) cholecystectomy 2006 HT L3rd, Skin Ulcer L, Bone Biopsy L 01/2019 Skin ulcer bilateral feet, HT L2nd, HT R 3rd 03/23/2020 HT Repir R 2,4,5 toes, skin ulcer R ft, bone biopsy R ft, 11/16/2020 HT L4,5, Excision skin ulcer L4th, Bone biopsy L4, 06/28/2021 L foot toe surgery 08/13/22 Hospitalization History Reason Date(Month/Year) [facility] third toe left foot 03/11/19 [facility] Skin ulcer bilateral feet, HT L2nd, HT R3rd 03/23/2020 [facility] ER 3 days infection 3rd toe, osteomy litis 09/30/2018
--- OUTSIDE RECORDS SUMMARY | 2024-08-09 07:42 | XMS_ITS ---
Author Organization [facility] Address [address] [place] [address] Care Team Providers Care Machine Stoppage Frequency Checker Name Role Phone Marcelo Solis Primary Care Provider Unav ailable Igor Barnes Unavailable [phone] REASON FOR VISIT DIAB - open wound on left toe Encounters Encounter Location Date Provider Diagnosis [facility] [address] [place] [address] 12/08/2023 Igor Barnes Plan Of Treatment No Information Progress Notes * Marilu VICK PDOB:[birth year] (63 yo F)Acc No.[id number]:12/08/2023 Patient:?Marilu Vick :1960???Age:63 Y???Sex:Female Address: [place] [address] * true * Date:? Generated for Printi radha/Fadianag/eTransmitting on:?08/09/2024 07:41 AM EST
--- OUTSIDE RECORDS SUMMARY | 2024-08-09 07:42 | XMS_ITS ---
Author Organization [facility] Address [address] [place] [address] Care Team Providers Care Inspector And Tester Name Role Phone Marcelo Solis Primary Care Provider Unav ailable Igor Barnes Unavailable [phone] REASON FOR VISIT Painful thick toenails which are aggrevated by shoes and causes difficulty standing/walking, Ingrown nail(s) Encounters Encounter Location Date Provider Diagnosis [facility] [address] [place] [address] 03/03/2023 Igor Barnes Tinea unguium B35.1 ; Pain in right toe(s) M79.674 ; Pain in left toe(s) M79.675 ; Other hammer toe(s) (acquired), left foot M20.42 ; Type 2 diabetes mellitus with diabetic polyneuropathy E11.42 ; Non-pressure chronic ulcer of other part of left foot limited to breakdown of skin L97.521 ; Primary osteoarthritis, left ankle and foot M19.072 and Ingrowing nail L60.0 Assessments Encounter Date Diagnosis (ICD Code) Assessment Notes Treat ment Notes Treatment Clinical Notes 03/03/2023 Tinea unguium (ICD-1 0 - B35.1) 03/03/2023 Pain in right toe(s) (ICD-10 - M79.674) 03/03/2023 Pain in left toe(s) (ICD-10 - M79.675) 03/03/2023 Other hammer toe(s) (acquired), left foot (ICD-10 - M20.42) 03/03/2023 Type 2 diabetes mellitus with diabetic polyneuropathy (ICD-10 - E11.42) 03/03/2023 Non-pressure chronic ulcer of other part of left foot limited to breakdown of skin (ICD-10 - L97.521) 03/03/2023 Primary osteoarthritis, left ankle and foot (ICD-10 - M19.072) 03/03/2023 Ingrowing nail (ICD-10 - L60.0) Plan Of Treatment Next Appt Details Follow Up: 4 Months, Reason: Procedure Notes * Category Sub-Category Detail Notes Nail Avulsion Procedure A fine sterile e levator was used to loosen the eponychium, nail bed, nail plate and groove. A sterile nail splitter was then used to longitudinally section the nail. This section was removed. No underlying bone was identified. Procedure was performed under. Bacitracin and sterile dressings applied, local wound care instructions were dispensed. Patient was informed of both conservative and future surgical procedures to prevent recurrence Anesthesia was deferred - NEURO YUE: patient has medically documented neuropathic condition affecting sensation Location Lateral nail border, TA Keratoma Treatment Parring or Cutting o f Benign Hyperkeratotic Lesion(s) 13974 (2-4 Lesions) - The Benign hyperkeratotic lesions, as described above were pared, and/or cut utilizing a sterile #15 blade, tissue nippers, and/or dremel Debride Nails 1-5 Procedure: Nail debrideme nt performed extensively to reduce/remove overall nail length and girth, subungual debris, and necrotic tissue, by manual and electrical means by use of a nail nipper and/or dremel, to more viable healthy nail plate or bed tissue 1-5. Silver nitrate used for any petechial bleeding as necessary. Patient chooses, no pharmaceutical tx (36830) Progress Notes * Marilu VICK PDOB:[birth year] (64 yo F)Acc No.[id number]:03/03/2023 Progress Note Patient:?Marilu VICK P Provider:?Igor Barnes DPM :1960???Age:62 Y???Sex:Female D ate:03/03/2023 Address:[address] [place] [address] [address] [place] [id number] Pcp:KAELA Rodrigues Subjective: * Chief Complaints: * ???1. Painful thick toenails which are aggrevated by shoes and causes difficulty standing/walking. 2. Ingrown nail(s). * HPI: ???Possible Infection:?Nature:?open wound.?Location:?Great toe, Left foot.?Course:?improved, resolved.?Treatments:?sx with Dr. Bryan Barnes 08/15/22.?Painful Nails:?Pt States Last PCP Visit:?Date:?04/25/2022 * ROS:?General/Constitutional:?Nausea?denies.?Vomiting?denies.?Hunger Thirst?denies.?Loss appetite?denies.?Chills?denies.?Fatigue?denies.?Fever?denies.?Night Sweats?denies.?Unexplained weight loss?denies.?Unexplained weight gain?denies.?HEENTM:?Dentures?denies.?Dizziness?denies.?Glasses/contacts?denies.?Retinopathy?de nies.?Blurred/double vision?denies.?TMJ?denies.?Discharge/drainage?denies.?Implants?denies.?Sore throat?denies.?Dental implants?denies.?Hard of hearing ?denies.?Difficulty chewing/swallowing/speaking?denies.?Nose bleeds?denies.?Sore mouth?denies.?Respiratory:?On Oxygen?denies.?Pneumonia/pleurisy?denies.?Bronchitis?denies.?Emphysema?denies.?C oughing?denies.?Cough blood?denies.?Shortness of breath?denies.?Wheezing?denies.?Cardiovascular:?Pacemaker?denies.?MVP?denies.?WPW?denies.?CHF?denies.?Heart attack?denies.?Septal defect?denies.?Rapid beat?denies.?Chest pain ?denies.?Atrial Fib.?denies.?Murmur/Palpitations?denies.?Gastrointestinal:?Hemorrhoids?denies.?Stomach/Abdominal pain?denies, denies.?Dark blood stool?denies, denies.?Irritable bowel ?denies, denies.?Constipation?denies, denies.?Diarrhea?denies, denies.?Vomiting?denies.?Hematology:?Swelling?denies.?Clots?denies.?Varicose Veins?denies.?Bruising?denies.?Bleeding problem?denies.?Genitourinary:?Blood urine?denies.?Frequent/Painfu/urination/bladder control?denies.?Kidney stones?denies.?Infection (UTI)?denies.?Nephropathy?denies.?sex trans dis (STD)?denies.?Prostate?denies.?Musculoskeletal:?Hammertoes?admits.?Bunions?denies.?Back Pain?denies.?Muscle Cramps/ Resting?denies.?Muscle cramps / walking?denies.?Generalized aches and pains?denies.?Weakness?denies.?Integ.:?Starks?denies.?Scars?denies.?Corns/calluses?admits.?Ingrown nails?denies.?Painful nails?denies.?Open Sores?denies.?Rashes?denies.?Neurologic:?Difficulty sleeping?denies, denies.?Brain disorder?denies.?Numbness?admits.?Balance trouble?denies.?Confusion?denies.?Fainting/blackouts?denies.?Tingling?denies.?Tr emors?denies.? * Medical History:? Objective: * Vitals:? * Examination: ???Ophthalmology Referral: ?DIABETES EYE EXAM?Nails: ?NAILS are:?Elongated, overgrown, dystrophic, lytic, greater than 3mm thick, discolored and friable with crumbly malodorous subungual debris, with dull to no pain on palpation due to neuropathy, TA, T5, T9, T8.?Dermatologic: ?SKIN FINDINGS:? Skin exam reveals Keratotic lesion(s) located at, Medial plantar, IPJ, TA, T5, SUB MTH (s), 1, B/L .?Vascular: ?DP PULSES(B):? 09/18, B/L.?PT PULSES(B):? 09/18, B/L.?CAPILLARY FILL TIME:? 3 secs. per digit, B/L.?TROPHIC CONDITION-TEXTURE/ELASTICITY/TURGOR/HAIR GROWTH(B):? decreased, B/L.?TEMPERTURE GRADIENT(C):? normal, warm to cool, proximal to distal, B/L.?PIGMENTATION:?normal, B/L.?EDEMA(C):?absent, B/L.?Neurological: ?SENSORY:? Neurological exam demonstrates, reduced light touch sensation, reduced sharp/dull pin prick discrimination , reduced vibration sensation, reduced proprioception sensation, B/L, 5.07 monofilament test performed at plantar aspects of 5 varied sites per foot shows sensation, absent, B/L.?General Examination: ?GENERAL APPEARANCE:?Reveals a pleasant, alert, well nourished, well developed, well hydrated individual, who demonstrates proper attention to hygene/body habitus, and is in no acute distress.?ORIENTED:?person, place, and time.?Orthopedic: ?MUSCLE STRENGTH:?5/5 all groups in a symmetrical fashion , B/L.?DIGITAL DEFORMITIES:? Digital contracture--rigid ht with valgus rotation of ipj TA and bulbous enlargement of toe.?Ingrown Nail: ?INSPECTION:? Reveals nail incurvation, dull pain on palpation due to neuropathy, groove hypertrophy, Lateral nail border, TA.? Assessment: * Assessment: 1.?Tinea unguium - B35.1 (Pr imary)???2.?Pain in right toe(s) - M79.674???3.?Pain in left toe(s) - M79.675???4.?Other hammer toe(s) (acquired), left foot - M20.42???5.?Type 2 diabetes mellitus with diabetic polyneuropathy - E11.42???6.?Non-pressure chronic ulcer of other part of left foot limited to breakdown of skin - L97.521???7.?Primary osteoarthritis, left ankle and foot - M19.072???8.?Ingrowing nail - L60.0??? Plan: * Treatment: * Procedures:?Debride Nails 1-5:?Procedure:?Nail debridement performed extensively to reduce/remove overall nail length and girth, subungual debris, and necrotic tissue, by manual and electrical means by use of a nail nipper and/or dremel, to more viable healthy nail plate or bed tissue 1-5. Silver nitrate used for any petechial bleeding as necessary. Patient chooses, no pharmaceutical tx (80993).?Keratoma Treatment:?Parring or Cutting of Benign Hyperkeratotic Lesion(s)?54783 (2-4 Lesions) - The Benign hyperkeratotic lesions, as described above were pared, and/or cut utilizing a sterile #15 blade, tissue nippers, and/or dremel.?Nail Avulsion:?Location?Lateral nail border, TA.?Anesthesia?was deferred - NEUROPATHY: patient has medically documented neuropathic condition affecting sensation.?Procedure?A fine sterile elevator was used to loosen the eponychium, nail bed, nail plate and groove. A sterile nail splitter was then used to longitudinally section the nail. This section was removed. No underlying bone was identified. Procedure was performed under. Bacitracin and sterile dressings applied, local wound care instructions were dispensed. Patient was informed of both conservative and future surgical procedures to prevent recurrence.? * Procedure Codes:?60155 DEBRI DE NAIL, 1-5, Modifiers: XS , 99774 Avulsion Plate, Modifiers: TA , 42886 TRIM SKIN LESIONS, 2 TO 4, Modifiers: XS * Follow Up:?4 Months * Images: * The named appointment provid er may or may not be the originator of this progress note, and it is not deemed complete until electronically signed by the appointment provider. Sign off status: Pending * Provider:Aftab Barnes DPM Date:? 023 Generated for Fam garcia/Miko/Bebaitting on:?08/09/2024 07:42 AM EST History and Physical Notes * HPI (History of Present Illness) Category Sub-Category Detail Notes Painful Nails Pt States Last PCP Visit: Date:: 022 Possible Infection Location: Great toe, Le ft foot Nature: open wound Course: improved, resolved Treatments: sx with Dr. Bryan milligan 08/15/22 Examination Category Sub-Category Detail Notes Ingrown Nail INSPECTION: Reveals nail inc urvation, dull pain on palpation due to neuropathy, groove hypertrophy, Lateral nail border, TA Neurological SENSORY: Neurological exa m demonstrates, reduced light touch sensation, reduced sharp/dull pin prick discrimination , reduced vibration sensation, reduced proprioception sensation, B/L, 5.07 monofilament test performed at plantar aspects of 5 varied sites per foot shows sensation, absent, B/L Dermatologic SKIN FINDINGS: Skin exam reveal s Keratotic lesion(s) located at, Medial plantar, IPJ, TA, T5, SUB MTH (s), 1, B/L Orthopedic DIGITAL DEFORMITIES: Digital con tracture--rigid ht with valgus rotation of ipj TA and bulbous enlargement of toe MUSCLE STRENGTH: 5/5 all groups in a symmetrical fashion , B/L General Examination GENERAL APPEARANCE: Reveals a pleasant, alert, well nourished, well developed, well hydrated individual, who demonstrates proper attention to hygene/body habitus, and is in no acute distress ORIENTED: person, place, and t flaco Ophthalmology Referral DIABETES EYE EXAM Diabeti c Retinopathy Screening:: Yes 12/04/2021 Vascular DP PULSES(B): 1/4, B/L PT PULSES(B): 1/4, B/L CAPILLARY FILL TIME: 3 secs. per digit, B/L TEMPERTURE GRADIENT(C): normal, warm to cool, proximal to distal, B/L TROPHIC CONDITION-TEXTURE/ELASTICITY/TURGOR/HAIR GROWTH(B): decreased, B/L EDEMA(C): absent, B/L PIGMENTATION: normal, B/L Nails NAILS are: Elongated, overg rown, dystrophic, lytic, greater than 3mm thick, discolored and friable with crumbly malodorous subungual debris, with dull to no pain on palpation due to neuropathy, TA, T5, T9, T8
--- OUTSIDE RECORDS SUMMARY | 2024-08-09 07:42 | XMS_ITS ---
Author Organization [facility] Address [address] [place] [address] Care Team Providers Care Town Marshal Name Role Phone Marcelo Solis Primary Care Provider Unav ailable Igor Barnes Unavailable [phone] REASON FOR VISIT cx today Encounters Encounter Location Date Provider Diagnosis [facility] [address] [place] [address] 03/03/2023 Igor Barnes Plan Of Treatment No Information Progress Notes * Marilu VICK PDOB:[birth year] (62 yo F)Acc No.[id number]:03/03/2023 Patient:?Marilu Vick :1960???Age:62 Y???Sex:Female Address: [place] [address] * true * Date:? Generated for Printi ng/Fadianag/eTransmitting on:?08/09/2024 07:42 AM EST
== END 2024-08-09 09:36 | disposition home or self-care (01) ==
LOC: HO.HMCC 07:37
PROVIDERS: PCP Nurse Practitioner Family; Visit Provider Nurse Practitioner Family
DX: D32.9 Benign neoplasm of meninges, unspecified (principal)

== ENCOUNTER → 2024-08-09 07:37 | Outpatient (BNVA) | payer BC, SELFPAY | PROVIDERS: PCP Nurse Practitioner Family; Visit Provider Nurse Practitioner Family | DX: D32.9 Benign neoplasm of meninges, unspecified (principal) ==

== ENCOUNTER 2024-08-10 08:31 | Outpatient (REF) | payer BC, SELFPAY | END 2024-08-10 08:32 | disposition home or self-care (01) | LOC: HO.HOSX 08:31 | PROVIDERS: Visit Provider Physician Assistant | DX: Z13.89 Encounter for screening for other disorder (principal) ==

== ENCOUNTER 2024-08-10 16:10 | Outpatient (REF) | payer BC, SELFPAY ==
[2024-08-10] MEDS: gadobutroL 7.5 ML VIAL IVPUSH (16:56)
== END 2024-08-10 16:11 | disposition home or self-care (01) ==
LOC: HO.MRI 16:10
PROVIDERS: Visit Provider Nurse Practitioner Family
DX: D32.9 Benign neoplasm of meninges, unspecified (principal)
CPT/HCPCS: 70553; A9585

== ENCOUNTER 2024-08-18 09:02 | Outpatient (REF) | payer BC, SELFPAY ==
--- OUTSIDE RECORDS SUMMARY | 2024-08-25 00:45 | XMS_ITS ---
Author Organization [facility] Address [address] [place] [address] Care Team Providers Care Teacher Dramatics Name Role Phone Marcelo Solis Primary Care Provider Unav ailable Igor Barnes Unavailable [phone] REASON FOR VISIT Painful thick toenails which are aggrevated by shoes and causes difficulty standing/walking, Ingrown nail(s) Encounters Encounter Location Date Provider Diagnosis [facility] [address] [place] [address] 03/03/2023 Igor Barnes Tinea unguium B35.1 ; [...] Encounter Date Diagnosis (ICD Code) Assessment Notes Treatment Notes Treatment Clinical Notes Section Notes 03/03/2023 Tinea unguium (ICD-10 - B35.1) 03/03/2023 Pain in right toe(s) [...] or Cutting o f Benign Hyperkeratotic Lesion(s) 46219 (2-4 Lesions) - The Benign hyperkeratotic lesions, [...] as necessary. Patient chooses, no pharmaceutical tx (35048) Progress Notes * Marilu VICK PDOB:[birth year] (64 yo F)Acc No.[id number]:03/03/2023 Progress Note Patient:?Marilu VICK P Provider:?Igor Barnes DPM :1960???Age:62 Y???Sex:Female D ate:03/03/2023 Address:[address] [place] [address] [address] [place] [id number] Pcp:KAELA Rodrigues Subjective: * Chief Complaints: * [...] as necessary. Patient chooses, no pharmaceutical tx (40990).?Keratoma Treatment:?Parring or Cutting of Benign Hyperkeratotic Lesion(s)?26059 (2-4 Lesions) - The Benign hyperkeratotic lesions, [...] surgical procedures to prevent recurrence.? * Procedure Codes:?68687 DEBRI DE NAIL, 1-5, Modifiers: XS , 31101 Avulsion Plate, Modifiers: TA , 58313 TRIM SKIN LESIONS, 2 TO 4, Modifiers: XS * Follow Up:?4 Months * Images: * The named appointment provid er may or may not be the originator of this progress note, and it is not deemed complete until electronically signed by the appointment provider. Sign off status: Pending * Provider:Aftab Barnes DPM Date:? 023 Generated for Fam garcia/Miko/Melaniesmitting on:?08/25/2024 12:45 AM EST History and Physical Notes * HPI (History of Present Illness) Category Sub-Category Detail Notes Category Not es Painful Nails Pt States Last PCP Visit: Date:: 04/25/2022 Possible Infection Location: Great toe, Left foot Nature: open wound Course: improved, resolved Treatments: sx with Dr. Bryan milligan 08/15/22 Examination Category Sub-Category Detail Notes Category Not es Ingrown Nail INSPECTION: Reveals nail inc urvation, [...]
--- OUTSIDE RECORDS SUMMARY | 2024-08-25 00:45 | XMS_ITS | Patient Health Record ---
Author Organization [facility] jyotsna [place] Address [address] [place] [address] Care Team Providers Care Exercise Physiologist Name Role Phone Marcelo Solis Primary Care Provider Unav ailable Igor Barnes Unavailable [phone] Allergies No Known Allergies Reason For Referral [...] Referring Provider Last Name Socorro Referred Carolin [facility] [place] Referred Provider Igor Barnes Referred Address [address] [facility],[place],[address], Referred Provider Specialty Podiatry Referral Priority Routine [...] . . . 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 [...] primary osteoarthritis of the ankle and/or foot (664757762) Primary osteoarthritis, right ankle and foot (M19.071) Active confirmed Problem Localized, primary osteoarthritis of the ankle and/or foot (601609531) Primary osteoarthritis, left ankle and foot (M19.072) Active confirmed Problem Polyneuropathy due to type 2 diabetes mellitus (472109415) Type 2 diabetes mellitus with diabetic polyneuropathy (E11.42) Active confirmed Problem Non-pressure chronic ulcer of other part of left foot limited to breakdown of skin (L97.521) Active confirmed Problem Non-pressure chronic ulcer of other part of right foot limited to breakdown of skin (L97.511) Active confirmed Problem Acquired hammer toe of right foot (8302521078295353) Other hammer toe(s) (acquired), right foot (M20.41) Active confirmed Problem Acquired hammer toe of left foot (7158371774154053) Other hammer toe(s) (acquired), left foot (M20.42) Active confirmed Problem 70664781 Non-pressure ulcer of right lower extremity, limited to breakdown of skin (L97.911) Active confirmed Problem 06911862 Osteomyelitis of toe of left foot (M86.9) Active confirmed Problem 50695505136640242 Non-pressure chronic ulcer right lower leg, limited to breakdown skin (L97.911) Active confirmed Problem 114314101 Osteomyelitis of toe of right foot (M86.9) Active confirmed Problem 744050949 Hammertoe of right foot (M20.41) Active confirmed Encounters Encounter Location Date Provider Diagnosis [facility] [place] [address] [place] [address] 12/08/2023 Igor Barnes Plan Of Treatment Pending [...] X ray : Foot, right 3V 08/21/2015 68752-LEMXBVK NAIL, 1-5 09/20/2015 81942- Debride <25 sq cm 02/23/2013 95794- Debride <25 sq cm 08/28/2015 90632- Debride <25 sq cm 09/20/2015 25491- Debride <25 sq cm 04/09/2013 53656- Debride <25 sq cm 04/23/2013 01102- Debride <25 sq cm 04/19/2014 53175- Debride <25 sq cm 03/09/2013 07458- Debride <25 sq cm 08/16/2020 73904- Debride <25 sq cm 08/30/2020 00899- Debride <25 sq cm 11/10/2018 63784- Debride <25 sq cm 10/03/2020 24167- Debride <25 sq cm 02/01/2021 62528-TTYORWR SKIN/TISSUE 04/23/2021 36117-RGGLMQD SKIN/TISSUE 05/07/2021 83607-GVMIYVW SKIN/TISSUE 01/28/2022 59766-IWIMPIO SKIN/TISSUE 08/03/2020 18591-GHUNMBN SKIN/TISSUE 10/03/2020 86065-VWHIXUI SKIN/TISSUE 2019 31765-NTXKKNB SKIN/TISSUE 03/26/2013 89449-ZWINFYK SKIN/TISSUE 12/15/2012 18727-YOSEJMU SKIN/TISSUE 08/21/2015 92167-DFQOCKW SKIN/TISSUE 09/29/2019 95371-HBYCEGN SKIN/TISSUE 01/12/2020 64730-KTLGUHW SKIN/TISSUE 04/20/2019 07207-HOZSRYB SKIN/TISSUE 05/03/2019 72192-XHDOFMZ SKIN/TISSUE 05/14/2019 03252-ZZIYYKQ SKIN/TISSUE 09/30/2018 49417-LOSORCL SKIN/TISSUE 10/13/2018 82858-NNFXJTL SKIN/TISSUE 10/22/2018 18222 I&D ABSCESS- SIMPLE,SINGLE 013 86268 I&D ABSCESS- SIMPLE,SINGLE 021 39048-UMHS SKIN LESIONS, 2 TO 4 02/05/20 22 92481-SUZZ SKIN LESIONS, 2 TO 4 08/05/20 22 81092-EQKZBPFE OF HEMATOMA/FLUID 020 03507-GBVLLVTT OF HEMATOMA/FLUID 019 02225-Ykgjooxed, Toes 02/23/2013 74481-Kbzdghfyv, Toes 04/09/2013 82918-Iaagrzkwn, Toes 03/26/2013 Insurance Providers Payer Name Payer Address Payer Phone Subscriber Number Group Number Insured Name Patient Relationship to Insured Coverage Start Date Coverage End Date [facility] [address] [place] [address] [phone] [id number] Marilu Freitas Self - patient is the [...] toe surgery 08/13/22 Hospitalization History Reason Date(Month/Year[place] [facility] [place] 03/11/19 [facility] [place] ulcer bilateral feet, HT L2nd, HT R3rd 03/23/2020 [facility] [place] 3 days infection 3rd toe, osteomy litis 09/30/2018
--- OUTSIDE RECORDS SUMMARY | 2024-08-25 00:45 | XMS_ITS ---
Author Organization [facility] Address [address] [place] [address] Care Team Providers Care Tutoring Assistant Name Role Phone Marcelo Solis Primary Care Provider Unav ailable Igor Barnes Unavailable [phone] REASON FOR VISIT DIAB - open wound on left toe Encounters Encounter Location Date Provider Diagnosis [facility] [address] [place] [address] 12/08/2023 Igor Barnes Plan Of Treatment No Information Progress Notes * Marilu VICK PDOB:[birth year] (63 yo F)Acc No.[id number]:12/08/2023 Patient:?Marilu Vick :1960???Age:63 Y???Sex:Female Address: [place] [address] * true * Date:? Generated for Printi ng/Fadianag/eTransmitting on:?08/25/2024 12:45 AM EST
--- OUTSIDE RECORDS SUMMARY | 2024-08-25 00:45 | XMS_ITS ---
Author Organization [facility] Address [address] [place] [address] Care Team Providers Care Brick Chimney Builder Name Role Phone Marcelo Solis Primary Care Provider Unav ailable Igor Barnes Unavailable [phone] REASON FOR VISIT cx today Encounters Encounter Location Date Provider Diagnosis [facility] [address] [place] [address] 03/03/2023 Igor Barnes Plan Of Treatment No Information Progress Notes * Marilu VICK PDOB:[birth year] (62 yo F)Acc No.[id number]:03/03/2023 Patient:?Marilu Vick :1960???Age:62 Y???Sex:Female Address: [place] [address] * true * Date:? Generated for Printi ng/Fadianag/eTransmitting on:?08/25/2024 12:45 AM EST
== END 2024-08-18 09:03 | disposition home or self-care (01) ==
LOC: HO.HOSX 09:02
PROVIDERS: Visit Provider Physician Assistant
DX: Z13.89 Encounter for screening for other disorder (principal)

== ENCOUNTER 2024-08-19 12:34 | Outpatient (REF) | payer BC, SELFPAY | END 2024-08-19 12:35 | disposition home or self-care (01) | LOC: HO.HOSX 12:34 | PROVIDERS: PCP Nurse Practitioner Family; Visit Provider Physician Assistant | DX: M25.559 Pain in unspecified hip (principal) | CPT/HCPCS: 72170 ==

== ENCOUNTER 2024-08-19 12:34 | Outpatient (AMB) | payer BC, SELFPAY ==
--- NOTE | 2024-08-19 12:51 | MHC.OFFVIS ---
Vital Signs 08/19/24 12:52 Height 5 ft 7 in Weight 171 lb BMI 26.8 Intake Visit Reasons: PO - Left femoral CRPP 05/19/24 NE Intake Note: Marilu is a 63 year old female who presents today for a post op appointment for her s/p Left femoral CRPP 05/19/24 NE. Patient reports she is feeling a bit sore. She has been going to PT and she notices mild improvements, however she tends to get sore after. Allergies No Known Allergies [No Known Allergies*] Allergy (Verified 08/19/24 12:53) Medication List - Last Reconciled 08/19/24 by Erin Mauricio PA-C apixaban (Eliquis) 5 mg PO BID 21 days atorvastatin 10 mg PO DAILY blood sugar diagnostic (SharegateTouch Ultra Test strips) bid blood-glucose meter ([employer] Ultra2 Meter) As directed dapagliflozin propanediol 10 mg PO DAILY Dexcom G7 Sensor (blood-glucose sensor) Test blood sugar 4 times per day, change every 10 days NS lancets (SharegateTouch UltraSoft Lancets) As directed lisinopril 10 mg PO DAILY 90 days metformin 1,000 mg PO BID 90 days pantoprazole 20 mg PO DAILY tramadol 50 mg PO Q8H PRN 7 days HPI HPI PO - Left femoral CRPP 05/19/24 NE: Details: 64-year-old female who returns to the office today for post-op left femoral CRPP, 05/19/[address] Che. She continues to have mild soreness in her leg as well as occasional discomfort with moving a certain way. She has been working on physical therapy with some relief however she experiences after the sessions. She is doing well otherwise and has no concerns today. [facility] Medical History Cellulitis of left leg COVID-19 vaccine series completed Diabetes Arthritis Anxiety Hx of osteomyelitis History of cholelithiasis GERD (gastroesophageal reflux disease) Dyslipidemia Acquired hammertoes of both feet Peripheral neuropathy Surgical History Hx of foot surgery History of esophagogastroduodenoscopy (EGD) Hx of colonoscopy History of ankle surgery History of hammertoe correction History of skin ulcer Hx of cholecystectomy Family History Father Diabetes mellitus HTN (hypertension) Myocardial infarction Hyperlipidemia Mother Lymphoma Hyperlipidemia Social History Household Members: None Housing: Condominium Are you a primary certified caregiver to a significant other at home: No Do you presently have visiting nurse or other home services: No Alcohol intake: current Alcohol intake frequency: holidays/special occasions only Patient Tobacco Use Status: Former Tobacco user Tobacco use type: Cigarette e-Cigarette/Vaping Use: Never Used Second Hand Smoke Exposure: Yes Advance Directives Date on File: 02/10/17 service: No Current occupational status: employed Current occupation: [employer] Current occupational exposures/hazards: No Cognitive needs: No Hearing needs: No Vision needs: No Review of Systems Const All systems reviewed & are unremarkable except as noted in HPI and below Physical Exam Vital Signs: BMI result Body Mass Index 26.8 Extrem Other: Left hip: Incision well healed. She has mild discomfort with hip flexion. No pain with ROM of hip. Calf supple, nontender. NVI. Results Reviewed Results Reviewed: Xrays were obtained in the office today and personally reviewed by me of the left hip show intact percutaneus pinns with healing fracture Assessment & Plan Assessment & Plan (1) Fracture of femoral neck, left: Code(s): S72.002A - Fracture of unspecified part of neck of left femur, initial encounter for closed fracture Category: Medical Qualifiers: Encounter type: subsequent encounter Fracture type: closed Fracture healing: with routine healing Qualified Code(s): S72.002D - Fracture of unspecified part of neck of left femur, subsequent encounter for closed fracture with routine healing Plan She will continue working with physical therapy to improve her strength and increase activities as tolerated. If symptoms worsens where she has any discomfort with ambulation or activities, she will contact the office, otherwise follow-up as needed. Orders: Orders XR pelvis 1-2V Today M25.559 - Pain in unspecified hip Patient Instructions: Scribed for Erin Mauricio PA-C, by Ashish Garrido medical office administrator, on 08/19/2024 at 12:30 PM EST.? I, Erin Mauricio PA-C, have personally reviewed and agree with the information entered by the scribe. Coding Level of Care Code Global (60283) Diagnoses Closed fracture of neck of left femur with routine healing, subsequent encounter S72.002D Encounter type: subsequent encounter Fracture type: closed Fracture healing: with routine healing
[2024-08-19 12:52] VITALS: BMI 26.8
== END 2024-08-19 13:04 | disposition home or self-care (01) ==
PROVIDERS: PCP Nurse Practitioner Family; Visit Provider Physician Assistant
DX: S72.002D Fracture of unspecified part of neck of left femur, subsequent encounter for closed fracture with routine healing (principal)
CPT/HCPCS: 99213

== ENCOUNTER 2024-09-06 07:00 | Outpatient (RCR) | payer BC, SELFPAY ==
--- NOTE | 2024-06-21 09:07 | MHC.PT.EP ---
[facility] [place] Office [place] Office [place] Office [address] Ryan Jauregui [address] [phone] F: [phone] F: [phone] F: [phone] F: [phone] Physical Therapy Plan of Care Date of Evaluation: 06/21/24 Date of Surgery: 05/19/24 Diagnosis: fx of unspecified part of neck of left femur, initial encounter for closed fx Assessment: 63 y/o female s/p L hip ORIF 05/19/24. Sustained injury 05/16/24 after fall onto L side. She was WBAT following surgery and in STR for 1 week and then home PT for 2 weeks. Currently pain and difficulty with prolonged sitting, walking without assistive device, sleeping, stairs, jogging, and chores. Examination shows decreased L hip ROM, decreased L LE strength, increased tension L hip flexors, impaired balance and impaired gait pattern. Recommend PT 2x/week for 5 weeks to address impairments, implement HEP, and optimize functional mobility. Frequency and Duration: The patient will be seen 2x/week for 5 weeks Short Term Goals: 3 weeks I with HEP Pt will demonstrate terminal knee extension on L Correctional Case Manager Goals: 5 weeks I with HEP and self management of sx Pt will be able to ambulate with LRAD > 20min with pain < 3/10 Pt will be able to ascend/ descend stairs with one rail and pain < 3/10 Treatment Plan: Modalities to reduce pain, spasms and effusion. Manual therapy to restore motion and function. Therapeutic exercise to improve strength and flexibility. Neuromuscular re-education for posture and balance. Therapeutic activities to return to functional activities of daily living. Electronically signed by: Karli Kim PT Please sign and return to therapist. Thank you for your referral.
--- NOTE | 2024-10-01 07:40 | MHC.PT.DC ---
[facility] [place] [facility] [place] [facility] [place] Office [address] Ryan Jauregui [address] [phone] F: [phone] F: [phone] F: [phone] F: [phone] Physical Therapy Discharge Report Diagnosis: fx of unspecified part of neck of left femur, initial encounter for closed fx Date of Surgery: 05/19/24 Date of Evaluation: 06/21/24 Date of Discharge: 10/01/24 Treatments to Date: 13 Cancellations to Date: 0 No Shows to Date: 0 Discharge Status: Improved Function Independent with HEP Discharge Summary: Pt cancelled last appointment d/t illness and did not want to reschedule. At time of last attended visits, she presented wtih improved gait pattern and improved control with exercises. She has made good gains in PT with improved function and strength. D/c to I HEP next visit Electronically signed by: Karli Kim PT Please sign and return to therapist. Thank you for your referral.
== END 2024-10-01 07:41 | disposition home or self-care (01) ==
LOC: HO.PTCHIC 07:00
PROVIDERS: PCP Nurse Practitioner Family; Visit Provider Physician Assistant
DX: S72.002D Fracture of unspecified part of neck of left femur, subsequent encounter for closed fracture with routine healing (principal)
CPT/HCPCS: 97110; 97161; 97530

== ENCOUNTER 2024-09-13 08:51 | Outpatient (AMB) | payer BC, SELFPAY ==
--- NOTE | 2024-09-13 07:06 | A.OFFVIS_ITS ---
Intake Visit Reasons: Discuss results-call pt, TH didn't work last time Allergies No Known Allergies [No Known Allergies*] Allergy (Verified 08/19/24 12:53) PFSH Medical History Cellulitis of left leg COVID-19 vaccine series completed Diabetes Arthritis Anxiety Hx of osteomyelitis History of cholelithiasis GERD (gastroesophageal reflux disease) Dyslipidemia Acquired hammertoes of both feet Peripheral neuropathy Surgical History Hx of foot surgery History of esophagogastroduodenoscopy (EGD) Hx of colonoscopy History of ankle surgery History of hammertoe correction History of skin ulcer Hx of cholecystectomy Family History Father Diabetes mellitus HTN (hypertension) Myocardial infarction Hyperlipidemia Mother Lymphoma Hyperlipidemia Social History Household Members: None [facility] Are you a primary medicare contact specialist to a significant other at home: No Do you presently have visiting nurse or other home services: No Alcohol intake: current Alcohol intake frequency: holidays/special occasions only Patient Tobacco Use Status: Former Tobacco user Tobacco use type: Cigarette e-Cigarette/Vaping Use: Never Used Second Hand Smoke Exposure: Yes Advance Directives Date on File: 02/10/17 service: No Current occupational status: employed Current occupation: [employer] Current occupational exposures/hazards: No Cognitive needs: No Hearing needs: No Vision needs: No Telehealth Telehealth Telehealth Platform: Telephone Location of provider rendering services: practice address Location of patient: address on file Patient Identification confirmed using: Name, : Yes Telehealth method: voice only Patient verbally consented to treatment: Yes Patient verbally consented to billing insurance company: Yes Patient informed of any privacy concerns related to visit: Yes Minutes spent on Phone/Video with Pt.: 12 Assessment & Plan Assessment & Plan (1) Meningioma: Comment: MRI performed Code(s): D32.9 - Benign neoplasm of meninges, unspecified Category: Medical Plan . Coding Level of Care Code Tele Est Pt Level 3 (47018) Diagnoses Meningioma D32.9
--- OUTSIDE RECORDS SUMMARY | 2024-09-13 08:54 | XMS_ITS | Patient Health Record ---
Author Organization [facility] jyotsna [place] Address [address] [place] [address] Care Team Providers Care Deckhand Maintenance Name Role Phone Marcelo Solis Primary Care Provider Unav ailable Igor Barnes Unavailable [phone] Allergies No Known Allergies Reason For Referral [...] Referring Provider Last Name Socorro Referred Carolin [facility] [place] Referred Provider Igor Barnes Referred Address [address] [facility],[place],[address], Referred Provider Specialty Podiatry Referral Priority Routine [...] . . . 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 [...] primary osteoarthritis of the ankle and/or foot (133351247) Primary osteoarthritis, right ankle and foot (M19.071) Active confirmed Problem Localized, primary osteoarthritis of the ankle and/or foot (656778010) Primary osteoarthritis, left ankle and foot (M19.072) Active confirmed Problem Polyneuropathy due to type 2 diabetes mellitus (413012462) Type 2 diabetes mellitus with diabetic polyneuropathy (E11.42) Active confirmed Problem Non-pressure chronic ulcer of other part of left foot limited to breakdown of skin (L97.521) Active confirmed Problem Non-pressure chronic ulcer of other part of right foot limited to breakdown of skin (L97.511) Active confirmed Problem Acquired hammer toe of right foot (0028115686116893) Other hammer toe(s) (acquired), right foot (M20.41) Active confirmed Problem Acquired hammer toe of left foot (0965381711378444) Other hammer toe(s) (acquired), left foot (M20.42) Active confirmed Problem 66949649 Non-pressure ulcer of right lower extremity, limited to breakdown of skin (L97.911) Active confirmed Problem 64047961 Osteomyelitis of toe of left foot (M86.9) Active confirmed Problem 88611851039873050 Non-pressure chronic ulcer right lower leg, limited to breakdown skin (L97.911) Active confirmed Problem 406806688 Osteomyelitis of toe of right foot (M86.9) Active confirmed Problem 043864215 Hammertoe of right foot (M20.41) Active confirmed Encounters Encounter Location Date Provider Diagnosis [facility] [place] [address] [place] [address] 12/08/2023 Igor Barnes Plan Of Treatment Pending [...] X ray : Foot, right 3V 08/21/2015 45551-XOGCIQQ NAIL, 1-5 09/20/2015 35165- Debride <25 sq cm 02/23/2013 04492- Debride <25 sq cm 08/28/2015 13030- Debride <25 sq cm 09/20/2015 94136- Debride <25 sq cm 04/09/2013 06931- Debride <25 sq cm 04/23/2013 67209- Debride <25 sq cm 04/19/2014 60561- Debride <25 sq cm 03/09/2013 01720- Debride <25 sq cm 08/16/2020 35327- Debride <25 sq cm 08/30/2020 39904- Debride <25 sq cm 11/10/2018 57046- Debride <25 sq cm 10/03/2020 22003- Debride <25 sq cm 02/01/2021 22619-WDBEUOW SKIN/TISSUE 04/23/2021 41381-WMRPVQB SKIN/TISSUE 05/07/2021 32359-PEVXQAK SKIN/TISSUE 01/28/2022 02138-IPNOODC SKIN/TISSUE 08/03/2020 77303-JMZDPZP SKIN/TISSUE 10/03/2020 57166-QNLMBKW SKIN/TISSUE 2019 12901-FCGVTKS SKIN/TISSUE 03/26/2013 66728-MHNCYMS SKIN/TISSUE 12/15/2012 95550-YAPXVZW SKIN/TISSUE 08/21/2015 59075-ISOOWCH SKIN/TISSUE 09/29/2019 07451-MNIVMUS SKIN/TISSUE 01/12/2020 20597-CCVAOQA SKIN/TISSUE 04/20/2019 04261-NWJKNXX SKIN/TISSUE 05/03/2019 27587-LVOMPND SKIN/TISSUE 05/14/2019 06023-LTYLSTW SKIN/TISSUE 09/30/2018 27976-EISKYJG SKIN/TISSUE 10/13/2018 34956-KUGRGHW SKIN/TISSUE 10/22/2018 84794 I&D ABSCESS- SIMPLE,SINGLE 013 30205 I&D ABSCESS- SIMPLE,SINGLE 021 84419-OHFE SKIN LESIONS, 2 TO 4 02/05/20 22 16033-EZIL SKIN LESIONS, 2 TO 4 08/05/20 22 01471-MKBWCBSN OF HEMATOMA/FLUID 020 34709-PWSQUUMZ OF HEMATOMA/FLUID 019 34670-Csbjqtgmb, Toes 02/23/2013 73428-Vnsrcezzx, Toes 04/09/2013 99845-Haqbnwwhu, Toes 03/26/2013 Insurance Providers Payer Name Payer Address Payer Phone Subscriber Number Group Number Insured Name Patient Relationship to Insured Coverage Start Date Coverage End Date [facility] [address] [place] [address] [phone] [id number] Marilu Freitas Self - patient is the [...] toe surgery 08/13/22 Hospitalization History Reason Date(Month/Year) [facility] [place] third toe left foot 03/11/19 [facility] [place] Skin ulcer bilateral feet, HT L2nd, HT R3rd 03/23/2020 [facility] ER 3 days infection 3rd toe, osteomy litis 09/30/2018
== END 2024-09-13 08:59 | disposition home or self-care (01) ==
LOC: HO.HMCC 08:51
PROVIDERS: PCP Nurse Practitioner Family; Visit Provider Nurse Practitioner Family
DX: D32.9 Benign neoplasm of meninges, unspecified (principal)

== ENCOUNTER 2024-12-03 14:05 | Outpatient (AMB) | payer BC, SELFPAY ==
--- NOTE | 2024-12-03 14:08 | MHC.OFFVIS ---
Vital Signs 12/03/24 14:17 Height 5 ft 7 in Weight 180 lb BMI 28.2 BP 142/74 H Blood Pressure Location Rt brachial Position Sitting Pulse 78 Pulse Source Pulse Oximeter Pulse Oximetry (%) 98 Oxygen Delivery Method Room Air Intake Visit Reasons: Routine colo scrn. R/S x1 Intake Note: NEW PATIENT for repeat colo screening. Prior hx of colo/egd? 2006 EGD, 2012 [place] w/ Dr. De León Chief Complaint; No GI concerns currently. Overdue for repeat colo Supervisor Dried Yeast Required: No Allergies No Known Allergies [No Known Allergies*] Allergy (Verified 12/03/24 14:09) Medication List - Last Reconciled 12/03/24 by RADHA Rankin-BC atorvastatin 10 mg PO DAILY blood sugar diagnostic (contrib.comuch Ultra Test strips) bid blood-glucose meter (contrib.comuch Ultra2 Meter) As directed dapagliflozin propanediol 10 mg PO DAILY Dexcom G7 Sensor (blood-glucose sensor) Test blood sugar 4 times per day, change every 10 days NS lancets (contrib.comuch UltraSoft Lancets) As directed lisinopril 10 mg PO DAILY 90 days metformin 1,000 mg PO BID 90 days pantoprazole 20 mg PO DAILY tramadol 50 mg PO Q8H PRN 7 days HPI HPI Routine colo scrn. R/S x1: Details: 64?year old? female here today for pre colonoscopy screening.? Patient was sent to us by her PCP.? Last colonoscopy in 2012?diverticulosis found, no polyps. Recommendation was made for 10 year follow-up. Patient denies any gastrointestinal symptoms in the past or at present.? Denies any personal or family history of gastrointestinal disease, colon polyps, or CRC.? Denies history of difficulty with sedation or anesthesia in the past.? Negative for history of sleep apnea.? Denies any history of cardiac, renal, pulmonary, or hepatic disease.?? No history of infectious? diseases like hepatitis A, B, C, HIV or tuberculosis.? Patient is not on any anticoagulation [facility] Medical History Cellulitis of left leg COVID-19 vaccine series completed Diabetes Arthritis Anxiety Hx of osteomyelitis History of cholelithiasis GERD (gastroesophageal reflux disease) Dyslipidemia Acquired hammertoes of both feet Peripheral neuropathy Surgical History Hx of foot surgery History of esophagogastroduodenoscopy (EGD) Hx of colonoscopy History of ankle surgery History of hammertoe correction History of skin ulcer Hx of cholecystectomy Family History Father Diabetes mellitus HTN (hypertension) Myocardial infarction Hyperlipidemia Mother Lymphoma Hyperlipidemia Social History Household Members: None Housing: Condominium Are you a primary home day care provider to a significant other at home: No Do you presently have visiting nurse or other home services: No Alcohol intake: current Alcohol intake frequency: holidays/special occasions only Patient Tobacco Use Status: Former Tobacco user Tobacco use type: Cigarette e-Cigarette/Vaping Use: Never Used Second Hand Smoke Exposure: Yes Advance Directives Date on File: 02/10/17 service: No Current occupational status: employed Current occupation: [employer] Current occupational exposures/hazards: No Cognitive needs: No Hearing needs: No Vision needs: No Review of Systems Const Denies weight gain and Denies weight loss ENT Reports no additional complaints, Denies dysphagia and Denies odynophagia Card Reports no additional complaints Resp Reports no additional complaints GI Denies abdominal pain, Denies belching, Denies melena, Denies bloating, Denies change in bowel habits, Denies dysphagia, Denies excessive flatus, Denies dyspepsia, Denies heartburn, Denies diarrhea, Denies loose stools, Denies nausea, Denies odynophagia and Denies vomiting Musc Reports no additional complaints Neuro Reports no additional complaints Psych Reports no additional complaints Endo Reports no additional complaints Physical Exam Vital Signs: Last Vital Signs Pulse 78 12/03/24 14:17 BP 142/74 H 12/03/24 14:17 Pulse Ox 98 12/03/24 14:17 Oxygen Delivery Method Room Air 12/03/24 14:17 BMI result Body Mass Index 28.2 Const General: healthy appearing, no acute distress and well developed Nutritional Appearance: well nourished and obese Orientation/consciousness: patient oriented x3 Resp Effort & Inspection: normal respiratory effort, able to speak in complete sentences, no tracheal deviation and symmetric chest movement Auscultation: clear to auscultation bilaterally Cardio Rate: regular rate GI Inspection: Yes normal to inspection, No distended and Yes obesity Palpation (GI): Soft to palpation, not firm, nontender and No hepatosplenomegaly present Auscultation: normal bowel sounds General: Yes no CVA tenderness Back/Spine/Pelvis Back: no CVA tenderness Skin General skin exam: elasticity normal, turgor normal and dry skin Neuro General: patient oriented x3 Psych Appearance: grossly normal Mental Status: mental status grossly normal Assessment & Plan Assessment & Plan (1) Screening for colon cancer: Code(s): Z12.11 - Encounter for screening for malignant neoplasm of colon Category: Medical Plan Patient denies any GI, cardiac or respiratory symptoms.? Denies any issues with anesthesia in the past.? Denies any history of sleep apnea.? No history infectious diseases in the past or present.? Not on any anticoagulation therapy.? No family or personal history of colon cancer or polyps.? Patient denies melena, hematochezia, unintentional weight loss or ribbon like stools.? Discussed at length the pre-procedure,? prep, diet & medications as well as what to expect prior, during and after the procedure.?? Stressed the importance of good bowel prep.? Recommended the use of Vaseline or Calmoseptine OTC & baby wipes with bowel movements to promote comfort.? ?Patient verbalizes understanding and agrees to plan of care.? She was given the opportunity to ask questions and all questions answered.? We will see her after the procedure.? Medications: New bisacodyl (Dulcolax (bisacodyl)) take 4 tabs at noon the day before your colonoscopy 20 mg (4 x 5 mg) PO ONCE 4 tabs 0RF 1 day Z12.11 - Encounter for screening for malignant neoplasm of colon polyethylene glycol 3350 (Miralax) As directed by gastroenterology department at [facility] 238 grams PO ONCE 238 grams 0RF Z12.11 - Encounter for screening for malignant neoplasm of colon Coding Level of Care Code New Pt Level 3 (21055) Diagnoses Screening for colon cancer Z12.11 Time Spent (min) 40 Comment 30 minutes spent with patient and additional 10 minutes spent reviewing her records
[2024-12-03 14:17] VITALS: BP 142/74; PULSE 78; O2SAT 98; BMI 28.2
== END 2024-12-03 14:41 | disposition home or self-care (01) ==
PROVIDERS: PCP Nurse Practitioner Family; Visit Provider Nurse Practitioner Family
DX: Z01.818 Encounter for other preprocedural examination (principal); Z12.11 Encounter for screening for malignant neoplasm of colon
CPT/HCPCS: S0285

== ENCOUNTER → 2024-12-03 14:05 | Outpatient (BNVA) | payer BC, SELFPAY | PROVIDERS: PCP Nurse Practitioner Family; Visit Provider Nurse Practitioner Family ==

== ENCOUNTER 2025-03-21 08:22 | Outpatient (REF) | payer BC, SELFPAY ==
--- NOTE | ~2025-03-21 | XR_ITS ---
CLINICAL HISTORY: M25.559 - Pain in unspecified hip AP pelvis Comparison: 08/19/2024 Findings: No acute fractures or dislocations. No significant arthritic change. Bilateral femoroacetabular joint distances are normal. Sacral neural foramina are symmetric. No radiopaque foreign body. Impression: Bilateral hip joint distances are normal. There is a healed proximal left femur subcapital neck fracture with 3 Zuniga pins unchanged in satisfactory position when compared to the previous exam. No acute skeletal abnormality. This document has been electronically signed by: Ángel Pop MD on 03/21/2025 22:04:30
--- OUTSIDE RECORDS SUMMARY | 2025-03-21 08:31 | XMS_ITS | Clinical Summary ---
Author Organization [facility] Facility Address [address] [place] [address] Care Team Providers Care Vehicle Body Builder Name Role Phone Marcelo Quintanilla NP Primary Care Provider [phone] Social History Tobacco Use Types Packs/Day Years Used Date Smoking Tobacco: Never Assessed Comments Unknown Sex and Gender Information Value Date Recorded Sex Assigned at Not on file Legal Sex Female 9:44 AM EDT Gender Identity Not on file Sexual Orientation Not on file Plan of Treatment Health Maintenance Due Date Last Done Comments Breast Cancer Screening 1960 Colorectal Cancer Screening: Annual FOBT 2009 Colorectal Cancer Screening: Colonoscopy 2009 Colorectal Cancer Screening: Sigmoidoscopy 2009 Pneumococcal Vaccine: 50+ Ye ars (1 of - PCV) 2010 Influenza Vaccine (Season Ended) 2025 Hepatitis B Vaccine Aged Out No longe r eligible based on patient's age to complete this topic Insurance [facility] PPO Jaquan([id number]) [facility] PPO Blue([id number]) Care Teams Vehicle Body Builder Relationship Specialty Start Date End Date Marcelo Quintanilla NP 1961 [place] [address] PCP - General Nurse Practitioner 12/26/21
--- OUTSIDE RECORDS SUMMARY | 2025-03-21 08:31 | XMS_ITS | Patient Health Record ---
Author Organization [facility] Address [address] [place] [address] Care Team Providers Care Vegetable Farmworker Name Role Phone Donald CANELA, [facility] Primary Care Provider Jaiden Britt Unavailable [phone] Reason For Referral No Information Medications Medication SIG (Take, Route, Fr equency, Duration) Notes Start Date End Date Status MoviPrep 100 GM as directed Orally once for 1 dose 11/19/2012 Active Omeprazole 20mg 09/15/2024 09/15/2024 Ac tive Problems Problem Type SNOMED Code ICD Code Onset Dates Problem Status W/U Status Risk Notes Problem Colon cancer screening (849100316) Colon cancer screening (V76.51) Active confirmed Problem Gastroesophageal reflux disease (290112022) GERD (gastroesopha geal reflux disease) (530.81) Active confirmed Problem Family history of malignant neoplasm of gastrointestinal tract (596190432) Family history of cancer of GI tract (V16.0) Active confirmed Plan Of Treatment Future Test Test Name Order Date COLONOSCOPY 11/19/2012 Insurance Providers Payer Name Payer Address Payer Phone Subscriber Number Group Number Insured Name Patient Relationship to Insured Coverage Start Date Coverage End Date [facility] [employer] [address] [place] [address] [id number] [employer] Self - patient is the insured Medical (General) History Medical History History ICD Code GERD--EGD in 07/2007 with a small HH-no sig. esophagitis nor Lynch's Colonoscopy in 07/2007-Hyper plastic polyps, mild diverticulosis, small int. hemorrhoids Denies LA,DM,CVA,Lung disease,renal dise ase Surgical History Surgery Date(Month/Year) Cholecystectomy Tubal ligation
--- OUTSIDE RECORDS SUMMARY | 2025-03-21 08:31 | XMS_ITS | Patient Health Record ---
[facility] Address [address] [place] [address] Care Team Providers Care Acute Dialysis Registered Nurse Name Role Phone Marcelo Solis Primary Care Provider Unav ailable Igor Barnes Unavailable [phone] Allergies No Known Allergies Reason For Referral No Information Medications Medication SIG (Take, Route, Frequency, Duration) Notes Start Date End Date Status PriLOSEC OTC 20 MG 1 tablet Orally Once a day; Duration: 30 day(s) Active Amoxicillin-Pot Clavulanate 875-125 MG 1 tablet Orally Twice a day; Duration: 10 day(s) Not-Taking metFORMIN HCl 1000 MG as directed Orally 2 tab o nce a day Active Work Note . . . this patient is released to work today 08/28/2015 Not-Taking Lisinopril Active Work Note . . . patient is dsiabled from work until 08/24/15 08/21/2015 Not-Taking Ibuprofen 800 MG 1 tablet with food or milk as needed Orally Three times a day; Duration: 30 days Active Cipro 500 MG 1 tablet Orally Twice a day; Duration: 10 day(s) 08/21/2015 Not-Taking Gabapentin Active LFT . . . .; Duration: . 04/19/2014 Not-Taking Work Note . . . .; Duration: . 12/01/2012 Not-Taking Augmentin 875-125 MG 1 tablet Orally every 12 hrs; Duration: 10 day(s) 08/21/2015 Not-Taking Doxycycline Monohydrate 100 MG 1 capsule Orally every 12 hrs; Duration: 10 days Not-Taking Work Note . . . 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 . . Medical from jury duty today, 07/30/21; Duration: 1 days 07/30/2021 Not-Taking Amoxicillin 10 days Not-Taki ng Vitamin D3 Active Augmentin 500-125 MG 1 tablet Orally every 8 hrs; Duration: 30 days 03/15/2020 Not-Taking Gabapentin 400 MG 1 capsule Orally Once a day hs; Duration: 30 days 03/15/2020 Not-Taking Augmentin 500-125 MG 1 tablet Orally every 8 hrs; Duration: 14 days 08/03/2020 Not-Taking Bactrim DS 800-160 MG 1 tablet Orally every 12 hrs; Duration: 10 day(s) 08/16/2020 Not-Taking Naproxen 500 MG 1 tablet with food or milk as needed Orally every 12 hrs; Duration: 90 days 03/15/2020 Not-Taking Gabapentin 400 MG 1 capsule Orally Once a day; Duration: 30 day(s) 11/01/2020 Not-Taking Augmentin 500-125 MG 1 tablet Orally every 8 hrs; Duration: 10 days 11/01/2020 Active Atorvastatin Calcium Active Alpha Lipoic Acid Ac tive Ertapenem Sodium Not -Taking Omeprazole 20 MG 1 capsule Orally Once a day; Duration: 30 day(s) Not-Taking Doxycycline 100mg No t-Taking Augmentin 500-125 MG 1 tablet Orally every 8 hrs; Duration: 30 days Not-Taking Immunizations Vaccine Route Administration [...] primary osteoarthritis of the ankle and/or foot (646237445) Primary osteoarthritis, right ankle and foot (M19.071) Active confirmed Problem Localized, primary osteoarthritis of the ankle and/or foot (879241477) Primary osteoarthritis, left ankle and foot (M19.072) Active confirmed Problem Polyneuropathy due to type 2 diabetes mellitus (614350418) Type 2 diabetes mellitus with diabetic polyneuropathy (E11.42) Active confirmed Problem Non-pressure chronic ulcer of other part of left foot limited to breakdown of skin (L97.521) Active confirmed Problem Non-pressure chronic ulcer of other part of right foot limited to breakdown of skin (L97.511) Active confirmed Problem Acquired hammer toe of right foot (5439953585429632 ) Other hammer toe(s) (acquired), right foot (M20.41) Active confirmed Problem Acquired hammer toe of left foot (2980822053969559 ) Other hammer toe(s) (acquired), left foot (M20.42) Active confirmed Problem Non-pressure ulcer of right lower extremity, limited to breakdown of skin (L97.911) Active confirmed Problem Osteomyelitis (35233572) Osteomyelitis of toe of left foot (M86.9) Active confirmed Problem Non-pressure chronic ulcer right lower leg, limited to breakdown skin (L97.911) Active confirmed Problem Osteomyelitis (68980151) Osteomyelitis of toe of right foot (M86.9) Active confirmed Problem Acquired hammer toe of right foot (5696623505696987 ) Hammertoe of right foot (M20.41) Active confirmed Plan Of Treatment Pending Test Test Name [...] X ray : Foot, right 3V 08/21/2015 81083-BKIUNXV NAIL, 1-5 09/20/2015 81159- Debride <25 sq cm 02/23/2013 88502- Debride <25 sq cm 08/28/2015 68383- Debride <25 sq cm 09/20/2015 79084- Debride <25 sq cm 04/09/2013 38012- Debride <25 sq cm 04/23/2013 12409- Debride <25 sq cm 04/19/2014 59808- Debride <25 sq cm 03/09/2013 90364- Debride <25 sq cm 08/16/2020 65636- Debride <25 sq cm 08/30/2020 23530- Debride <25 sq cm 11/10/2018 16100- Debride <25 sq cm 10/03/2020 53346- Debride <25 sq cm 02/01/2021 27178-DDCSLNU SKIN/TISSUE 04/23/2021 90531-QNYVXKN SKIN/TISSUE 05/07/2021 26992-EKZTJTA SKIN/TISSUE 01/28/2022 49879-AWHKROF SKIN/TISSUE 08/03/2020 59571-WHMRHPZ SKIN/TISSUE 10/03/2020 83724-ABLIZLA SKIN/TISSUE 2019 33755-VCWTOLQ SKIN/TISSUE 03/26/2013 76073-YVOCLZA SKIN/TISSUE 12/15/2012 40720-DAIUNTI SKIN/TISSUE 08/21/2015 42323-MZVDWUD SKIN/TISSUE 09/29/2019 89569-BUIECAV SKIN/TISSUE 01/12/2020 03603-UXAGAHH SKIN/TISSUE 04/20/2019 26914-YXYYNSA SKIN/TISSUE 05/03/2019 01334-KGSUSCH SKIN/TISSUE 05/14/2019 21635-PAOKLRB SKIN/TISSUE 09/30/2018 02276-YMVMUUQ SKIN/TISSUE 10/13/2018 75377-HLAYNAD SKIN/TISSUE 10/22/2018 48831 I&D ABSCESS- SIMPLE,SINGLE 013 54973 I&D ABSCESS- SIMPLE,SINGLE 021 66994-IWSN SKIN LESIONS, 2 TO 4 02/05/20 22 62114-DXHJ SKIN LESIONS, 2 TO 4 08/05/20 22 66495-UBXFZSAP OF HEMATOMA/FLUID 020 29060-DLJMVBPT OF HEMATOMA/FLUID 019 38552-Rthusvnmu, Toes 02/23/2013 99867-Emtfcgmrg, Toes 04/09/2013 43778-Acdljkcut, Toes 03/26/2013 Insurance Providers Payer Name Payer Address Payer Phone Subscriber Number Group Number Insured Name Patient Relationship to Insured Coverage Start Date Coverage End Date [facility] [address] [place] [address] [id number] Noman Retanaminamingo Patrickia Self - patient is the insured 4 Medical (General) History Medical History History ICD Code chicken pox Reflux mild LFT's Gallstones Gastroesophageal reflux disease (GERD) Anterior uterine fibroid Peripheral neuropathy FEET Right ankle fx Arthritis Broken bones Gall bladder problems Headaches/Migraines Neuropathy Poor circulation Osteomylitis Diabetic type ll Surgical History Surgery Date(Month/Year) cholecystectomy 2007 HT L3rd, Skin Ulcer L, Bone Biopsy L 01/2019 Skin ulcer bilateral feet, HT L2nd, HT R 3rd 03/23/2020 HT Repir R 2,4,5 toes, skin ulcer R ft, bone biopsy R ft, 11/16/2020 HT L4,5, Excision skin ulcer L4th, Bone biopsy L4, 06/28/2021 L foot toe surgery 08/13/22 Hospitalization History Reason Date(Month/Year) [facility] third toe left foot 03/11/19 [facility] Skin ulcer bilateral feet, HT L2nd, HT R3rd 03/23/2020 [facility] ER 3 days infection 3rd toe, osteomy litis 09/30/2018
[2025-03-21 10:47] LABS: MANUAL DIFF FLAG NO
[2025-03-21 11:01] LABS: Hematocrit 42.5 % (37.0-47.0); Hemoglobin 14.6 g/dl (12.0-16.0); Imm Gran Abs Auto 0.01 X10*3/uL (0.00-0.03); Imm Gran Pct Auto 0.2 % (0.0-0.4); Lymphocytes Absolute Auto 2.6 X10*3/uL (1.2-4.9); Mean Corpuscular HGB Conc 34.4 g/dl (31.0-35.0); Mean Corpuscular Hemoglobin 28.7 pg (27.0-33.0); Mean Corpuscular Volume 83.5 fL (80.0-98.0); NRBC Abs Auto 0.000 X10*3/uL (0.0-0.012); NRBC Pct Auto 0.0 /100WBC (0.0-0.2); Platelet Count 382 X10*3/uL (160-400); Red Blood Count 5.09 X10*6/uL (4.20-5.50); White Blood Count 6.4 X10*3/uL (4.8-10.8)
[2025-03-21 11:36] LABS: Appearance Urine Clear; Glucose Urine UA >=1000 mg/dL (Negative); PH 5.5 (5.0-9.0); Specific Gravity - Urine >= 1.030 (1.005-1.025); UMIC TRIGGER UACC YES
[2025-03-21 12:32] LABS: Anion Gap 13 (12-20)
[2025-03-21 12:37] LABS: Alanine Aminotransferase 46 U/L (0-31); Albumin Level 4.5 g/dL (3.5-5.0); Alkaline Phosphatase 86 U/L (39-117); Aspartate Amino Transferase 31 U/L (5-31); Blood Urea Nitrogen 13 mg/dL (9-16); Calcium 9.6 mg/dL (8.4-10.2); Carbon Dioxide 24 mmol/L (22-29); Chloride 104 mmol/L (96-108); Cholesterol 166 mg/dL (<200); Estimated Glomerular Filt Rate > 60; HDL Cholesterol 37 mg/dL (>40); Potassium 4.4 mmol/L (3.3-5.1); Sodium 137 mmol/L (135-145); Total Protein 7.5 g/dL (6.5-8.0); Triglycerides 187 mg/dL (<150)
[2025-03-21 14:28] LABS: Hemoglobin A1C 395.5349 umol/L; Total Hemoglobin (HGBA1C) 3759.9286 umol/L
== END 2025-03-21 08:23 | disposition home or self-care (01) ==
LOC: HO.HMGCX 08:22
PROVIDERS: PCP Nurse Practitioner Family; Referring Provider Physician Assistant; Visit Provider Nurse Practitioner Family
DX: E11.9 Type 2 diabetes mellitus without complications (principal); E55.9 Vitamin D deficiency, unspecified; M25.552 Pain in left hip; M25.551 Pain in right hip
CPT/HCPCS: 36415; 72170; 80053; 80061; 81001; 82306; 83036; 84443; 85025

== ENCOUNTER → 2025-03-21 09:26 | Outpatient (BNV) | payer BC, SELFPAY | PROVIDERS: PCP Nurse Practitioner Family; Referring Provider Physician Assistant; Visit Provider Radiology Diagnostic Radiology | DX: M25.552 Pain in left hip (principal) | CPT/HCPCS: 72170 ==

== ENCOUNTER 2025-03-21 14:07 | Outpatient (REF) | payer BC, SELFPAY | END 2025-03-21 14:08 | disposition home or self-care (01) | LOC: HO.LAB 14:07 | PROVIDERS: Visit Provider Nurse Practitioner Family | DX: Z13.89 Encounter for screening for other disorder (principal) ==

== ENCOUNTER 2025-07-14 06:58 | Outpatient (REF) | payer BC, SELFPAY ==
--- OUTSIDE RECORDS SUMMARY | 2025-07-14 07:01 | XMS_ITS | Clinical Summary ---
Author Organization [facility] Facility Address [address] [place] [address] Care Team Providers Care Front Office Assistant Name Role Phone Marcelo Quintanilla NP Primary Care Provider [phone] Social History Tobacco Use Types Packs/Day Years [...] Pneumococcal Vaccine: 50+ Ye ars (1 of 1 - PCV) 2010 Influenza Vaccine (#1) 2025 Hepatitis B Vaccine Aged Out No longe r eligible based on patient's age to complete this topic Insurance [facility] PPO Jaquan([id number]) [facility] PPO Blue([id number]) Care Teams Front Office Assistant Relationship Specialty Start Date End Date Marcelo Quintanilla NP 1961 [facility] [address] PCP - General Nurse Practitioner 12/26/21
--- OUTSIDE RECORDS SUMMARY | 2025-07-14 07:01 | XMS_ITS | Patient Health Record ---
Author [facility] Address [address] [place] [address] Care Team Providers Care Attendant Lodging Facilities Name Role Phone Marcelo Solis Primary Care Provider Unav ailable Igor Riojas Unavailable [phone] Allergies No Known Allergies Reason For Referral [...] . . . 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; Duration: [...] Vaccine Route Administration Date Status Comme nts Influenza Unknown 04/17/2020 Administered COVID-19 Kalyan & Kalyan/Susan Unknown 12/23/2020 A dministered Social History Tobacco Use: Social History Observation [...] primary osteoarthritis of the ankle and/or foot (244529396) Primary osteoarthritis, right ankle and foot (M19.071) Active confirmed Problem Localized, primary osteoarthritis of the ankle and/or foot (083014937) Primary osteoarthritis, left ankle and foot (M19.072) Active confirmed Problem Polyneuropathy due to type 2 diabetes mellitus (580652455) Type 2 diabetes mellitus with diabetic polyneuropathy (E11.42) Active confirmed Problem Non-pressure chronic ulcer of other part of left foot limited to breakdown of skin (L97.521) Active confirmed Problem Non-pressure chronic ulcer of other part of right foot limited to breakdown of skin (L97.511) Active confirmed Problem Acquired hammer toe of right foot (1620810760230297 ) Other hammer toe(s) (acquired), right foot (M20.41) Active confirmed Problem Acquired hammer toe of left foot (5412607415975101 ) Other hammer toe(s) (acquired), left foot (M20.42) Active confirmed Problem Non-pressure ulcer of right lower extremity, limited to breakdown of skin (L97.911) Active confirmed Problem Osteomyelitis (07332446) Osteomyelitis of toe of left foot (M86.9) Active confirmed Problem Non-pressure chronic ulcer right lower leg, limited to breakdown skin (L97.911) Active confirmed Problem Osteomyelitis (93128451) Osteomyelitis of toe of right foot (M86.9) Active confirmed Problem Acquired hammer toe of right foot (9313392696269986 ) Hammertoe of right foot (M20.41) Active [...] X ray : Foot, right 3V 08/21/2015 29802-ITNQJUS NAIL, 1-5 09/20/2015 79542- Debride <25 sq cm 02/23/2013 43076- Debride <25 sq cm 08/28/2015 75158- Debride <25 sq cm 09/20/2015 93572- Debride <25 sq cm 04/09/2013 95567- Debride <25 sq cm 04/23/2013 91443- Debride <25 sq cm 04/19/2014 44036- Debride <25 sq cm 03/09/2013 28806- Debride <25 sq cm 08/16/2020 61245- Debride <25 sq cm 08/30/2020 62078- Debride <25 sq cm 11/10/2018 53028- Debride <25 sq cm 10/03/2020 02524- Debride <25 sq cm 02/01/2021 94898-DDECIKM SKIN/TISSUE 04/23/2021 81655-HJZQMVT SKIN/TISSUE 05/07/2021 29089-WDXVCEK SKIN/TISSUE 01/28/2022 96282-AIKKJUD SKIN/TISSUE 08/03/2020 09267-OOVMHDL SKIN/TISSUE 10/03/2020 20905-BQUUQFV SKIN/TISSUE 2019 99808-HWMQLVU SKIN/TISSUE 03/26/2013 94039-DBSPFGJ SKIN/TISSUE 12/15/2012 73781-DDYVYUB SKIN/TISSUE 08/21/2015 79577-ZUOESMK SKIN/TISSUE 09/29/2019 12316-OIAMXDR SKIN/TISSUE 01/12/2020 32410-TCTAWCI SKIN/TISSUE 04/20/2019 00831-VNTVIRX SKIN/TISSUE 05/03/2019 12956-DIWTXSU SKIN/TISSUE 05/14/2019 54977-FRSOHFY SKIN/TISSUE 09/30/2018 84155-WXFFWRM SKIN/TISSUE 10/13/2018 84320-DIFYFEJ SKIN/TISSUE 10/22/2018 89470 I&D ABSCESS- SIMPLE,SINGLE 013 77382 I&D ABSCESS- SIMPLE,SINGLE 021 35238-ESQC SKIN LESIONS, 2 TO 4 02/05/20 22 49882-QWFW SKIN LESIONS, 2 TO 4 08/05/20 22 53147-RSSYZODN OF HEMATOMA/FLUID 020 75731-AZZTMWDT OF HEMATOMA/FLUID 019 12221-Hpchnculg, Toes 02/23/2013 33327-Qfoyqanru, Toes 04/09/2013 46970-Yjhljavux, Toes 03/26/2013 Insurance Providers Payer Name Payer Address Payer Phone Subscriber Number Group Number Insured Name Patient Relationship to Insured Coverage Start Date Coverage End Date [facility] [address] [place] [address] [id number] Noman Marilu Vick Self - patient is the insured 4 [...] toe surgery 08/13/22 Hospitalization History Reason Date(Month/Year) [facility] third toe left foot 03/11/19 [facility] Skin ulcer bilateral feet, HT L2nd, HT R3rd 03/23/2020 [facility] ER 3 days infection 3rd toe, osteomy litis 09/30/2018
--- OUTSIDE RECORDS SUMMARY | 2025-07-14 07:01 | XMS_ITS | Patient Health Record ---
Author Organization [facility] Address [address] [place] [address] Care Team Providers Care Gauge Machine Operator Name Role Phone Donald CANELA, [facility] Primary Care Provider Jaiden Britt Unavailable [phone] Reason For Referral No Information Medications Medication SIG (Take, Route, Fr equency, Duration) Notes Start Date End Date Status MoviPrep 100 GM as directed Orally o nce; Duration: 1 dose 11/19/2012 Active Omeprazole 20mg 09/15/2024 09/15/2024 Ac tive Problems Problem Type SNOMED Code ICD Code Onset Dates Problem Status W/U Status Risk Notes Problem Colon cancer screening (846621465) Colon cancer screening (V76.51) Active confirmed Problem Gastroesophageal reflux disease (042757913) GERD (gastroesopha geal reflux disease) (530.81) Active confirmed Problem Family history of malignant neoplasm of gastrointestinal tract (392205628) Family history of cancer of GI tract (V16.0) Active confirmed Plan Of Treatment Future Test Test Name Order Date COLONOSCOPY 11/19/2012 Insurance Providers Payer Name Payer Address Payer Phone Subscriber Number Group Number Insured Name Patient Relationship to Insured Coverage Start Date Coverage End Date [facility] [place] [employer] PROFESSIONAL [place]S [address] [place] [address] [phone] [id number] 3 [employer] Self - patient is the insured Medical (General) History Medical History History ICD Code GERD--EGD in 07/2007 with a small HH-no sig. esophagitis nor Lynch's Colonoscopy in 07/2007-Hyper plastic polyps, mild diverticulosis, small int. hemorrhoids Denies VT,DM,CVA,Lung disease,renal dise ase Surgical History Surgery Date(Month/Year) Cholecystectomy Tubal ligation
[2025-07-14 10:59] LABS: MANUAL DIFF FLAG NO
[2025-07-14 11:02] LABS: Appearance Urine Turbid; Glucose Urine UA >=1000 mg/dL (Negative); PH 5.0 (5.0-9.0); Specific Gravity - Urine >= 1.030 (1.005-1.025); UMIC TRIGGER UACC YES
[2025-07-14 11:11] LABS: Hematocrit 43.2 % (37.0-47.0); Hemoglobin 14.4 g/dl (12.0-16.0); Imm Gran Abs Auto 0.02 X10*3/uL (0.00-0.03); Imm Gran Pct Auto 0.3 % (0.0-0.4); Lymphocytes Absolute Auto 3.2 X10*3/uL (1.2-4.9); Mean Corpuscular HGB Conc 33.3 g/dl (31.0-35.0); Mean Corpuscular Hemoglobin 28.5 pg (27.0-33.0); Mean Corpuscular Volume 85.4 fL (80.0-98.0); NRBC Abs Auto 0.000 X10*3/uL (0.0-0.012); NRBC Pct Auto 0.0 /100WBC (0.0-0.2); Platelet Count 427 X10*3/uL (160-400); Red Blood Count 5.06 X10*6/uL (4.20-5.50); White Blood Count 7.8 X10*3/uL (4.8-10.8)
[2025-07-14 11:17] LABS: UACC Culture Trigger YES
[2025-07-14 11:43] LABS: Alanine Aminotransferase 33 U/L (0-31); Albumin Level 4.9 g/dL (3.5-5.0); Alkaline Phosphatase 68 U/L (39-117); Anion Gap 12 (12-20); Aspartate Amino Transferase 26 U/L (5-31); Blood Urea Nitrogen 15 mg/dL (9-16); Calcium 9.8 mg/dL (8.4-10.2); Carbon Dioxide 26 mmol/L (22-29); Chloride 106 mmol/L (96-108); Cholesterol 173 mg/dL (<200); Estimated Glomerular Filt Rate > 60; HDL Cholesterol 46 mg/dL (>40); Potassium 4.1 mmol/L (3.3-5.1); Sodium 140 mmol/L (135-145); Total Protein 8.0 g/dL (6.5-8.0); Triglycerides 143 mg/dL (<150)
== END 2025-07-14 06:59 | disposition home or self-care (01) ==
LOC: HO.HMGCLDS 06:58
PROVIDERS: PCP Nurse Practitioner Family; Visit Provider Nurse Practitioner Family
DX: E11.9 Type 2 diabetes mellitus without complications (principal)
CPT/HCPCS: 36415; 80053; 80061; 81001; 81003; 83036; 84443; 85025; 87086; 87088; 87186

== ENCOUNTER 2025-07-19 09:12 | Outpatient (AMB) | payer BC, SELFPAY ==
[2025-07-19 09:26] VITALS: BP 140/78; PULSE 77; RESP 16; TEMP 36.7; O2SAT 99; BMI 28.0
--- NOTE | 2025-07-19 09:26 | A.OFFPC_ITS ---
Vital Signs 07/19/25 09:26 Height 5 ft 7 in Weight 179 lb BMI 28.0 BP 140/78 H Blood Pressure Location Lt brachial Position Sitting Respiration 16 Pulse 77 Pulse Source Pulse Oximeter Temp 98.1 F Pulse Oximetry (%) 99 Oxygen Delivery Method Room Air Intake Visit Reasons: Annual PE - see comments Director Of Events Required: No Accompanied by: Self / Same As Patient Allergies No Known Allergies (No Known Allergies*) Allergy (Verified 07/19/25 09:29) Tobacco use date assessed: 07/19/25 Fall risk assessment: No Falls in past year Last assessed Fall Risk: 07/19/25 Dental Screening Dental Screen Date: 07/19/25 Did you have a dental visit in the last 12 months?: Yes Did you have a dental problem in the last 6 months where you did not have access to dental care?: No Was dental information given to patient?: Patient has dentist HPI Annual PE - see comments HPI Details History of Present Illness The patient is a 64-year-old female presenting for a physical exam and management of diabetes. Her most recent hemoglobin A1c was 7.4%, a significant improvement from 11.8% in March. She reports adherence to her medication regimen and is watching her diet. The patient has a history of neuropathy in the bilateral lower extremities and has undergone multiple surgeries, with prior management by a rod pointer. A recent urine culture was positive, though the patient remains asymptomatic. For health maintenance, a colon screening and eye exam are upcoming, and a mammogram is already scheduled. A microalbumin test is currently due. Health Maintenance The patient is up-to-date with her health screenings, with a colonoscopy and eye exam upcoming and a mammogram already scheduled. declined vaccinations Social History - Diet: The patient reports she is watch ing her diet. Review of Systems - Cardiovascular: Denies chest pain. - Respiratory: Denies shortness of breat h. - Gastrointestinal: Denies abdominal analisa n, blood in stool, constipation, or diarrhea. - Psychiatric: Denies suicidal or homici kellie ideation. - Genitourinary: Denies symptoms of a ur inary tract infection. Physical Exam General: Cooperative, healthy appearing, comfortable, no acute distress and well developed Orientation: Patient oriented x3 Limitations: No limitations Head: Normal to inspection Ears: Hearing grossly normal bilaterally Nose: Normal external nose present Face and sinus: Normal facial exam Eyes: Appearance normal, both eyes and all related structures Neck: Normal visual inspection and Yes full ROM Respiratory: Normal respiratory effort and able to speak in complete sentences. Clear to auscultation bilaterally Cardiovascular: Regular rate and rhythm. Normal S1 and S2 GI: Normal to inspection. Soft to palpation and nontender Skin: No rashes or lesions noted Neuro: Patient oriented x3, but has neuropathy in lower extremities Extremities: Normal to inspection Results - Hemoglobin A1c: 7.4%. - Urine Culture: Positive for bacteria s ensitive to Ciprofloxacin. Plan. 1. Diabetes Mellitus The patient's glycemic control has significantly improved, with her A1c decreasing from 11.8% to 7.4%. She is compliant with her medications and diet modifications. A microalbumin test will be ordered as it is now due for renal function monitoring. 2. Diabetic Neuropathy The patient history of neuropathy in the bilateral lower extremities is noted and she is reportedly doing well. No new interventions are planned at this time. 3. Asymptomatic Bacteriuria The patient is asymptomatic, but a recent urine culture was positive and showed sensitivity to Ciprofloxacin. A course of Ciprofloxacin will be prescribed. Discussion Notes I discussed the patient's significant improvement in her diabetes control, emphasizing the positive trend in her A1c from 11.8% down to 7.4%. We reviewed her current health maintenance status, noting her upcoming colon screen, eye exam, and scheduled mammogram. I informed her that a microalbumin test is now due. We also addressed the positive urine culture result; although she is asymptomatic, I recommended a course of Ciprofloxacin based on the culture's sensitivity, and a prescription will be sent. Patient Instructions - Continue to take your medications as p rescribed and follow your diet. - You will be given a prescription for a n antibiotic, Ciprofloxacin, to treat the bacteria found in your urine. - Please proceed with your upcoming colo n screening, eye exam, and scheduled mammogram. - We will be placing an order for a urin e test (microalbumin) to check your kidney health. [facility] Medical History Cellulitis of left leg COVID-19 vaccine series completed Diabetes Arthritis Anxiety Hx of osteomyelitis History of cholelithiasis GERD (gastroesophageal reflux disease) Dyslipidemia Acquired hammertoes of both feet Peripheral neuropathy Surgical History (Reviewed 07/19/25 @ 09:54 by Marcelo Quintanilla [facility] Hx of foot surgery History of esophagogastroduodenoscopy (EGD) Hx of colonoscopy History of ankle surgery History of hammertoe correction History of skin ulcer Hx of cholecystectomy Family History Father Diabetes mellitus HTN (hypertension) Myocardial infarction Hyperlipidemia Mother Lymphoma Hyperlipidemia Social History Household Members: None Housing: Condominium Are you a primary career services manager to a significant other at home: No Do you presently have visiting nurse or other home services: No Alcohol intake: current Alcohol intake frequency: holidays/special occasions only Patient Tobacco Use Status: Former Tobacco user Tobacco use type: Cigarette e-Cigarette/Vaping Use: Never Used Second Hand Smoke Exposure: Yes Advance Directives Date on File: 02/10/17 service: No Current occupational status: employed Current occupation: [employer] Current occupational exposures/hazards: No Cognitive needs: No Hearing needs: No Vision needs: No Questionnaire Thrive Questionnaire Date Thrive assessed: 07/18/25 I am a: Patient What is your living situation today?: I have a steady place to live Within the past 12 months, did the food you bought not last and you didn't have the money to get more?: I choose not to answer this question Within the past 12 months, did you worry whether your food would run out before you got money to buy more?: I choose not to answer this question Do you have trouble paying for medicines?: Yes Do you have trouble paying your heating and electricity bill?: Yes Do you have trouble taking care of your child, family member or friend?: I choose not to answer this question Do you have trouble with day-to-day activities such as bathing, preparing meals, shopping, managing finances, etc.?: No Are you currently unemployed and looking for a job?: No Are you interested in more education?: No Currently or been in a relationship where the following occur: No concerns reported THRIVE Score: 1 AUDIT C Alcohol Use Questionnaire (AUDIT-C) 1. How often do you have a drink containing alcohol?: 2-3 times a week 2. How many drinks containing alcohol do you have on a typical day when you are drinking?: 3 or 4 3. How often do you have six or more drinks on one occasion?: Never Total Score: 4 HAVEN-7 AMB Questionnaire HAVEN-7 Date HAVEN - 7 assessed: 04/25/22 Feeling nervous, anxious, or on edge: 0 = Not at all Not being able to stop or control worryin = Not at all Worrying too much about different things: 0 = Not at all Trouble relaxin = Not at all Being so restless that it is hard to sit still: 0 = Not at all Becoming easily annoyed or irritable: 0 = Not at all Feeling afraid as if something awful might happen: 0 = Not at all Total HAVEN-7 score (0-4 normal; 5-9 mild; 10-14 moderate; 15-21 severe): 0 Source: Developed by Drs. Jaiden Olvera, Marcelle Munoz, Ihsan Almeida and colleagues, with an educational tip from [employer]. Physical exam (Primary Care) Vital Signs: Last Vital Signs Temp 98.1 F 07/19/25 09:26 Pulse 77 07/19/25 09:26 Resp 16 07/19/25 09:26 BP 140/78 H 07/19/25 09:26 Pulse Ox 99 07/19/25 09:26 Oxygen Delivery Method Room Air 07/19/25 09:26 BMI result Body Mass Index 28.0 Tobacco/Smoking Status: Tobacco use Status Tobacco use date assessed 07/19/25 07/19/25 09:34 Patient Tobacco Use Status Former Tobacco user 07/19/25 09:34 Tobacco use type Cigarette 07/19/25 09:34 e-Cigarette/Vaping Use Never Used 07/19/25 09:34 Thrive Assessment: Date of Thrive Assessment Date Thrive assessed 07/18/25 07/19/25 09:34 Currently or been in a relationship where the following occur: No concerns reported Coding Level of Care Code Est Pt Level 3 (56355) Est Pt Prev Care 40-64y(61241) Diagnoses Diabetes E11.9 Encounter for routine adult physical exam with abnormal findings Z00.01 Vitamin D deficiency E55.9 Assessment & Plan Assessment & Plan (1) Diabetes: Code(s): E11.9 - Type 2 diabetes mellitus without complications Category: Medical (2) Encounter for routine adult physical exam with abnormal findings: Code(s): Z00.01 - Encounter for general adult medical examination with abnormal findings Category: Medical (3) Vitamin D deficiency: Code(s): E55.9 - Vitamin D deficiency, unspecified Category: Medical Plan . Orders: Orders Complete Blood Count Auto Diff Today E11.9 - Type 2 diabetes mellitus without complications Complete Blood Count Auto Diff 4 Months E11.9 - Type 2 diabetes mellitus without complications Comprehensive [place]. Panel Fast 4 Months E11.9 - Type 2 diabetes mellitus without complications TSH reflex Free T4 4 Months E11.9 - Type 2 diabetes mellitus without co mplications Microalbumin, Random (w Creat) Today E11.9 - Type 2 diabetes mellitus without complications UA CC w/rflx Micro + Cult 4 Months E11.9 - Type 2 diabetes mellitus without complications Lipid Panel 4 Months E11.9 - Type 2 diabetes mellitus without complications Vitamin D 25-OH Total Today E55.9 - Vitamin D deficiency, unspecified Medications: New ciprofloxacin HCl 250 mg PO BID 8 tabs 0RF 4 days Changed From metformin ER (Glucophage XR) 500 mg PO BID 90 days 180 tabs 0RF To metformin ER (Glucophage XR) 1,000 mg (2 x 500 mg) PO BID 360 tabs 0RF 90 days
--- OUTSIDE RECORDS SUMMARY | 2025-07-19 09:57 | XMS_ITS | Clinical Summary ---
Author Organization [facility] Address [address] [place] [address] Care Team Providers Care Press Clippings Cutter And Paster Name Role Phone Marcelo Quintanilla NP Primary Care Provider [phone] Social History Tobacco Use Types Packs/Day Years [...] patient's age to complete this topic Insurance [facility] PPO Jaquan([id number]) [facility] PPO Blue([id number]) Care Teams Press Clippings Cutter And Paster Relationship Specialty Start Date End Date Marcelo Quintanilla NP 1961 [place] [address] PCP - General Nurse Practitioner 12/26/21
--- OUTSIDE RECORDS SUMMARY | 2025-07-19 09:57 | XMS_ITS | Patient Health Record ---
Author [facility] Address [address] [place] [address] Care Team Providers Care Linotype Machinist Name Role Phone Marcelo Solis Primary Care Provider Unav ailable Igor Riojas Unavailable [phone] Allergies No Known Allergies Reason For Referral [...] . . . 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; Duration: 2 [...] primary osteoarthritis of the ankle and/or foot (800135025) Primary osteoarthritis, right ankle and foot (M19.071) Active confirmed Problem Localized, primary osteoarthritis of the ankle and/or foot (453530851) Primary osteoarthritis, left ankle and foot (M19.072) Active confirmed Problem Polyneuropathy due to type 2 diabetes mellitus (780744688) Type 2 diabetes mellitus with diabetic polyneuropathy (E11.42) Active confirmed Problem Non-pressure chronic ulcer of other part of left foot limited to breakdown of skin (L97.521) Active confirmed Problem Non-pressure chronic ulcer of other part of right foot limited to breakdown of skin (L97.511) Active confirmed Problem Acquired hammer toe of right foot (2204879582541162 ) Other hammer toe(s) (acquired), right foot (M20.41) Active confirmed Problem Acquired hammer toe of left foot (6004623562221126 ) Other hammer toe(s) (acquired), left foot (M20.42) Active confirmed Problem Non-pressure ulcer of right lower extremity, limited to breakdown of skin (L97.911) Active confirmed Problem Osteomyelitis (95670732) Osteomyelitis of toe of left foot (M86.9) Active confirmed Problem Non-pressure chronic ulcer right lower leg, limited to breakdown skin (L97.911) Active confirmed Problem Osteomyelitis (36978285) Osteomyelitis of toe of right foot (M86.9) Active confirmed Problem Acquired hammer toe of right foot (4716814067174448 ) Hammertoe of right foot (M20.41) Active [...] X ray : Foot, right 3V 08/21/2015 20413-IZGHYXN NAIL, 1-5 09/20/2015 99244- Debride <25 sq cm 02/23/2013 71035- Debride <25 sq cm 08/28/2015 04984- Debride <25 sq cm 09/20/2015 63038- Debride <25 sq cm 04/09/2013 01285- Debride <25 sq cm 04/23/2013 47231- Debride <25 sq cm 04/19/2014 57516- Debride <25 sq cm 03/09/2013 02034- Debride <25 sq cm 08/16/2020 81163- Debride <25 sq cm 08/30/2020 06648- Debride <25 sq cm 11/10/2018 77692- Debride <25 sq cm 10/03/2020 34067- Debride <25 sq cm 02/01/2021 16538-TJCSHGK SKIN/TISSUE 04/23/2021 27344-BRKXJAR SKIN/TISSUE 05/07/2021 72778-YFYKDIE SKIN/TISSUE 01/28/2022 90334-BBJXFLX SKIN/TISSUE 08/03/2020 85323-JBNLAWP SKIN/TISSUE 10/03/2020 00413-ZTLFDNV SKIN/TISSUE 2019 80166-KUMEGBM SKIN/TISSUE 03/26/2013 30841-CVJRZKS SKIN/TISSUE 12/15/2012 92064-RJTMNPP SKIN/TISSUE 08/21/2015 28693-BHCDUYT SKIN/TISSUE 09/29/2019 69905-JYLNNQI SKIN/TISSUE 01/12/2020 91458-GJMSFTE SKIN/TISSUE 04/20/2019 20121-PIPUELJ SKIN/TISSUE 05/03/2019 61730-ALDKMBA SKIN/TISSUE 05/14/2019 41113-KWWOADL SKIN/TISSUE 09/30/2018 02788-ZJWLIQO SKIN/TISSUE 10/13/2018 37106-YTHNBYH SKIN/TISSUE 10/22/2018 60260 I&D ABSCESS- SIMPLE,SINGLE 013 78166 I&D ABSCESS- SIMPLE,SINGLE 021 05794-JIIB SKIN LESIONS, 2 TO 4 02/05/20 22 36618-NOIN SKIN LESIONS, 2 TO 4 08/05/20 22 62054-VPKMMFRK OF HEMATOMA/FLUID 020 16931-FOJBMJMY OF HEMATOMA/FLUID 019 69002-Sgxpelrrd, Toes 02/23/2013 26212-Ieneinfen, Toes 04/09/2013 33353-Jxlqabdbk, Toes 03/26/2013 Insurance Providers Payer Name Payer Address Payer Phone Subscriber Number Group Number Insured Name Patient Relationship to Insured Coverage Start Date Coverage End Date [facility] [address] [place] [address] [phone] [id number] [employer] Marilu Vick Self - patient is [...] toe surgery 08/13/22 Hospitalization History Reason Date(Month/Year) [facility] [place] toe left foot 03/11/19 [facility] [place] Skin ulcer bilateral feet, HT L2nd, HT R3rd 03/23/2020 [facility] [place] ER 3 days infection 3rd toe, osteomy litis 09/30/2018
--- OUTSIDE RECORDS SUMMARY | 2025-07-19 09:57 | XMS_ITS | Patient Health Record ---
Author Organization [facility] Address [address] [place] [address] Care Team Providers Care Assurance Assistant Name Role Phone Donald CANELA, [facility] Primary Care Provider Jaiden Britt Unavailable [phone] Reason For Referral No Information Medications Medication SIG (Take, Route, Fr equency, Duration) Notes Start Date End Date Status MoviPrep 100 GM as directed Orally o nce; Duration: 1 dose 11/19/2012 Active Omeprazole 20mg 09/15/2024 09/15/2024 Ac tive Problems Problem Type SNOMED Code ICD Code Onset Dates Problem Status W/U Status Risk Notes Problem Colon cancer screening (547707458) Colon cancer screening (V76.51) Active confirmed Problem Gastroesophageal reflux disease (445776994) GERD (gastroesopha geal reflux disease) (530.81) Active confirmed Problem Family history of malignant neoplasm of gastrointestinal tract (591186180) Family history of cancer of GI tract (V16.0) Active confirmed Plan Of Treatment Future Test Test Name Order Date COLONOSCOPY 11/19/2012 Insurance Providers Payer Name Payer Address Payer Phone Subscriber Number Group Number Insured Name Patient Relationship to Insured Coverage Start Date Coverage End Date [facility] [employer] PROFESSIONAL CLAIMS [address] [place] [address] [id number] 3 [employer] Self - patient is the insured Medical (General) History Medical History History ICD Code GERD--EGD in 07/2007 with a small HH-no sig. esophagitis nor Lynch's Colonoscopy in 07/2007-Hyper plastic polyps, mild diverticulosis, small int. hemorrhoids Denies HI,DM,CVA,Lung disease,renal dise ase Surgical History Surgery Date(Month/Year) Cholecystectomy Tubal ligation
== END 2025-07-19 10:09 | disposition home or self-care (01) ==
LOC: HO.HMCC 09:12
PROVIDERS: PCP Nurse Practitioner Family; Visit Provider Nurse Practitioner Family
DX: Z00.01 Encounter for general adult medical examination with abnormal findings (principal); E11.9 Type 2 diabetes mellitus without complications; E55.9 Vitamin D deficiency, unspecified

== ENCOUNTER → 2025-07-23 08:45 | Outpatient (BNV) | payer BC, SELFPAY | PROVIDERS: PCP Nurse Practitioner Family; Visit Provider Internal Medicine | DX: Z12.31 Encounter for screening mammogram for malignant neoplasm of breast (principal) | CPT/HCPCS: 77063; 77067 ==

== ENCOUNTER 2025-07-23 08:48 | Outpatient (REF) | payer BC, SELFPAY ==
--- OUTSIDE RECORDS SUMMARY | 2025-07-23 08:51 | XMS_ITS | Patient Health Record ---
Author Organization [facility] Address [address] [address] Care Team Providers Care Deposit Clerk Name Role Phone Marcelo Solis Primary Care Provider Unav ailable Igor Riojas Unavailable [phone] Allergies No Known Allergies Reason For Referral [...] . . . 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; Duration: [...] primary osteoarthritis of the ankle and/or foot (657897123) Primary osteoarthritis, right ankle and foot (M19.071) Active confirmed Problem Localized, primary osteoarthritis of the ankle and/or foot (838383193) Primary osteoarthritis, left ankle and foot (M19.072) Active confirmed Problem Polyneuropathy due to type 2 diabetes mellitus (850570929) Type 2 diabetes mellitus with diabetic polyneuropathy (E11.42) Active confirmed Problem Non-pressure chronic ulcer of other part of left foot limited to breakdown of skin (L97.521) Active confirmed Problem Non-pressure chronic ulcer of other part of right foot limited to breakdown of skin (L97.511) Active confirmed Problem Acquired hammer toe of right foot (2052092124909034 ) Other hammer toe(s) (acquired), right foot (M20.41) Active confirmed Problem Acquired hammer toe of left foot (3895428483290800 ) Other hammer toe(s) (acquired), left foot (M20.42) Active confirmed Problem Non-pressure ulcer of right lower extremity, limited to breakdown of skin (L97.911) Active confirmed Problem Osteomyelitis (53426751) Osteomyelitis of toe of left foot (M86.9) Active confirmed Problem Non-pressure chronic ulcer right lower leg, limited to breakdown skin (L97.911) Active confirmed Problem Osteomyelitis (44305860) Osteomyelitis of toe of right foot (M86.9) Active confirmed Problem Acquired hammer toe of right foot (7953575340234891 ) Hammertoe of right foot (M20.41) Active [...] X ray : Foot, right 3V 08/21/2015 69092-ZMFQKDQ NAIL, 1-5 09/20/2015 76068- Debride <25 sq cm 02/23/2013 92135- Debride <25 sq cm 08/28/2015 36097- Debride <25 sq cm 09/20/2015 33305- Debride <25 sq cm 04/09/2013 77365- Debride <25 sq cm 04/23/2013 25405- Debride <25 sq cm 04/19/2014 51400- Debride <25 sq cm 03/09/2013 42146- Debride <25 sq cm 08/16/2020 25126- Debride <25 sq cm 08/30/2020 96052- Debride <25 sq cm 11/10/2018 35493- Debride <25 sq cm 10/03/2020 16931- Debride <25 sq cm 02/01/2021 16899-UMXCWPK SKIN/TISSUE 04/23/2021 49224-VBFXEYY SKIN/TISSUE 05/07/2021 03558-FDODRNI SKIN/TISSUE 01/28/2022 29860-KCCRPVB SKIN/TISSUE 08/03/2020 90801-VOIDXVU SKIN/TISSUE 10/03/2020 31648-LJBSCDC SKIN/TISSUE 2019 46052-YMDYGBB SKIN/TISSUE 03/26/2013 65216-GSPUTEX SKIN/TISSUE 12/15/2012 71841-CUJXDJQ SKIN/TISSUE 08/21/2015 11065-SHZLEHD SKIN/TISSUE 09/29/2019 09156-QFZLHNE SKIN/TISSUE 01/12/2020 77850-RAULDLJ SKIN/TISSUE 04/20/2019 68991-RYJYCMD SKIN/TISSUE 05/03/2019 05395-JRLJUFT SKIN/TISSUE 05/14/2019 33331-NUEPOWQ SKIN/TISSUE 09/30/2018 94521-JKSFNRJ SKIN/TISSUE 10/13/2018 69236-HRSHPEA SKIN/TISSUE 10/22/2018 41634 I&D ABSCESS- SIMPLE,SINGLE 013 97949 I&D ABSCESS- SIMPLE,SINGLE 021 69907-TSXT SKIN LESIONS, 2 TO 4 02/05/20 22 37168-BXNI SKIN LESIONS, 2 TO 4 08/05/20 22 10601-VAUYZBDG OF HEMATOMA/FLUID 020 94874-CYSLADMG OF HEMATOMA/FLUID 019 02362-Ncevkvotq, Toes 02/23/2013 97241-Jlbxyfeis, Toes 04/09/2013 34870-Boejzdrpr, Toes 03/26/2013 Insurance Providers Payer Name Payer Address Payer Phone Subscriber Number Group Number Insured Name Patient Relationship to Insured Coverage Start Date Coverage End Date [facility] [address] [place] [address] [phone] [id number] [employer]oman Marilu Vick Self - patient is [...] toe surgery 08/13/22 Hospitalization History Reason Date(Month/Year) [facility] [place] 03/11/19 [facility] [place] Skin ulcer bilateral feet, HT L2nd, HT R3rd 03/23/2020 [facility] [place] ER 3 days infection 3rd toe, osteomy litis 09/30/2018
--- OUTSIDE RECORDS SUMMARY | 2025-07-23 08:51 | XMS_ITS | Clinical Summary ---
Author Organization [facility] Address [address] [place] [address] Care Team Providers Care Gravity Prospector Name Role Phone Marcelo Quintanilla NP Primary Care Provider [phone] Social History Tobacco Use Types Packs/Day Years [...] patient's age to complete this topic Insurance [facility] PPO Jaquan([id number]) [facility] PPO Blue([id number]) Care Teams Gravity Prospector Relationship Specialty Start Date End Date Marcelo Quintanilla NP [address] [place] [address] PCP - General Nurse Practitioner 12/26/21
--- OUTSIDE RECORDS SUMMARY | 2025-07-23 08:51 | XMS_ITS | Patient Health Record ---
Author Organization [facility] Address [address] [place] [address] Care Team Providers Care Grey Goods Tester Name Role Phone Donald CANELA, [facility] Primary Care Provider Jaiden Britt Unavailable [phone] Reason For Referral No Information Medications Medication SIG (Take, Route, Fr equency, Duration) Notes Start Date End Date Status MoviPrep 100 GM as directed Orally o nce; Duration: 1 dose 11/19/2012 Active Omeprazole 20mg 09/15/2024 09/15/2024 Ac tive Problems Problem Type SNOMED Code ICD Code Onset Dates Problem Status W/U Status Risk Notes Problem Colon cancer screening (135305112) Colon cancer screening (V76.51) Active confirmed Problem Gastroesophageal reflux disease (141833029) GERD (gastroesopha geal reflux disease) (530.81) Active confirmed Problem Family history of malignant neoplasm of gastrointestinal tract (115499876) Family history of cancer of GI tract (V16.0) Active confirmed Plan Of Treatment Future Test Test Name Order Date COLONOSCOPY 11/19/2012 Insurance Providers Payer Name Payer Address Payer Phone Subscriber Number Group Number Insured Name Patient Relationship to Insured Coverage Start Date Coverage End Date [facility] [employer] PROFESSIONAL CLAIMS [address] [place] [address] [phone] [id number] [employer] Self - patient is the insured Medical (General) History Medical History History ICD Code GERD--EGD in 07/2007 with a small HH-no sig. esophagitis nor Lynch's Colonoscopy in 07/2007-Hyper plastic polyps, mild diverticulosis, small int. hemorrhoids Denies HI,DM,CVA,Lung disease,renal dise ase Surgical History Surgery Date(Month/Year) Cholecystectomy Tubal ligation
== END 2025-07-23 08:49 | disposition home or self-care (01) ==
LOC: HO.MAMMO 08:48
PROVIDERS: PCP Nurse Practitioner Family; Visit Provider Nurse Practitioner Family
DX: Z12.31 Encounter for screening mammogram for malignant neoplasm of breast (principal)
CPT/HCPCS: 77063; 77067

== ENCOUNTER 2025-08-26 12:16 | Day surgery (SDC) | payer BC, SELFPAY ==
--- OUTSIDE RECORDS SUMMARY | 2025-08-03 08:08 | XMS_ITS | Clinical Summary ---
Author Organization [facility] Address [address] [address] Care Team Providers Care Mold Hoister Name Role Phone Marcelo Quintanilla NP Primary Care Provider [phone] Social History Tobacco Use Types Packs/Day Years [...] patient's age to complete this topic Insurance [facility] PPO Jaquan([id number]) [facility] PPO Blue([id number]) Care Teams Mold Hoister Relationship Specialty Start Date End Date Marcelo Quintanilla NP 1961 [place] [address] PCP - General Nurse Practitioner 12/26/21
--- OUTSIDE RECORDS SUMMARY | 2025-08-03 08:08 | XMS_ITS | Patient Health Record ---
Author Organization [facility] Address [address] [place] [address] Care Team Providers Care Photographic Developer And Printer Name Role Phone Donald CANELA, Asma Primary Care Provider Jaiden Britt Unavailable [phone] Reason For Referral No Information Medications Medication SIG (Take, Route, Frequency, Duration) Notes Start Date End Date Status MoviPrep 100 GM Solution Reconstituted as directed Orally once; Duration: 1 dose 11/19/2012 Active Omeprazole 20mg Ac tive Social History Social History Additional Details Category Social Info Options Details Miscellaneous: Marital status: Occupation: senior safety support manager at [employer] Section Notes: Nonsmoker; occasional alcoho l Problems Problem Type SNOMED Code ICD Code Onset Dates Problem Status W/U Status Risk Notes Problem Colon cancer screening (241232704) Colon cancer screening (V76.51) Active confirmed Problem Gastroesophageal reflux disease (013339866) GERD (gastroesopha geal reflux disease) (530.81) Active confirmed Problem Family history of malignant neoplasm of gastrointestinal tract (876385147) Family history of cancer of GI tract (V16.0) Active confirmed Plan Of Treatment Future Test Test Name Order Date COLONOSCOPY 11/19/2012 Insurance Providers Payer Name Payer Address Payer Phone Subscriber Number Group Number Insured Name Patient Relationship to Insured Coverage Start Date Coverage End Date [facility] [employer] PROFESSIONAL CLAIMS [address] [place] [address] [id number] [employer] Self - patient is the insured Medical (General) History Medical History History ICD Code GERD--EGD in 07/2007 with a small HH-no sig. esophagitis nor Lynch's Colonoscopy in 07/2007-Hyper plastic polyps, mild diverticulosis, small int. hemorrhoids Denies PR,DM,CVA,Lung disease,renal dise ase Surgical History Surgery Date(Month/Year) Cholecystectomy Tubal ligation
--- OUTSIDE RECORDS SUMMARY | 2025-08-03 08:08 | XMS_ITS | Patient Health Record ---
Author Organization [facility] Address [address] [address] Care Team Providers Care Manager Fiber Name Role Phone Marcelo Solis Primary Care Provider Unav ailable Igor Riojas Unavailable [phone] Allergies No Known Allergies Reason For Referral [...] . . . 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 possible; Duration: [...] primary osteoarthritis of the ankle and/or foot (024186761) Primary osteoarthritis, right ankle and foot (M19.071) Active confirmed Problem Localized, primary osteoarthritis of the ankle and/or foot (123634639) Primary osteoarthritis, left ankle and foot (M19.072) Active confirmed Problem Polyneuropathy due to type 2 diabetes mellitus (480986112) Type 2 diabetes mellitus with diabetic polyneuropathy (E11.42) Active confirmed Problem Non-pressure chronic ulcer of other part of left foot limited to breakdown of skin (L97.521) Active confirmed Problem Non-pressure chronic ulcer of other part of right foot limited to breakdown of skin (L97.511) Active confirmed Problem Acquired hammer toe of right foot (6205962620418280 ) Other hammer toe(s) (acquired), right foot (M20.41) Active confirmed Problem Acquired hammer toe of left foot (5805825303362734 ) Other hammer toe(s) (acquired), left foot (M20.42) Active confirmed Problem Non-pressure ulcer of right lower extremity, limited to breakdown of skin (L97.911) Active confirmed Problem Osteomyelitis (20785067) Osteomyelitis of toe of left foot (M86.9) Active confirmed Problem Non-pressure chronic ulcer right lower leg, limited to breakdown skin (L97.911) Active confirmed Problem Osteomyelitis (76946194) Osteomyelitis of toe of right foot (M86.9) Active confirmed Problem Acquired hammer toe of right foot (8653133239918441 ) Hammertoe of right foot (M20.41) Active [...] X ray : Foot, right 3V 08/21/2015 03706-DTGSHFT NAIL, 1-5 09/20/2015 75090- Debride <25 sq cm 02/23/2013 10938- Debride <25 sq cm 08/28/2015 94746- Debride <25 sq cm 09/20/2015 43060- Debride <25 sq cm 04/09/2013 45725- Debride <25 sq cm 04/23/2013 38754- Debride <25 sq cm 04/19/2014 63297- Debride <25 sq cm 03/09/2013 94022- Debride <25 sq cm 08/16/2020 49298- Debride <25 sq cm 08/30/2020 45229- Debride <25 sq cm 11/10/2018 78213- Debride <25 sq cm 10/03/2020 69066- Debride <25 sq cm 02/01/2021 17295-KJHWAEC SKIN/TISSUE 04/23/2021 97926-HODADEU SKIN/TISSUE 05/07/2021 84066-GCKJWGS SKIN/TISSUE 01/28/2022 90331-EGSELIN SKIN/TISSUE 08/03/2020 51426-WXMJTFN SKIN/TISSUE 10/03/2020 35617-MFJEXGA SKIN/TISSUE 2019 37376-UVRNFZB SKIN/TISSUE 03/26/2013 07629-BRGPULK SKIN/TISSUE 12/15/2012 66671-RJYTRRP SKIN/TISSUE 08/21/2015 86722-YEYFEEB SKIN/TISSUE 09/29/2019 07739-CZVFSMW SKIN/TISSUE 01/12/2020 96051-QFXFTWK SKIN/TISSUE 04/20/2019 15394-KHOOCRD SKIN/TISSUE 05/03/2019 51039-AVZNWCP SKIN/TISSUE 05/14/2019 70032-OSFMCHE SKIN/TISSUE 09/30/2018 77851-TFUMHRA SKIN/TISSUE 10/13/2018 49882-SNSBOLG SKIN/TISSUE 10/22/2018 23865 I&D ABSCESS- SIMPLE,SINGLE 013 61808 I&D ABSCESS- SIMPLE,SINGLE 021 44584-IHAO SKIN LESIONS, 2 TO 4 02/05/20 22 24391-TSFG SKIN LESIONS, 2 TO 4 08/05/20 22 59549-MPTRZHDX OF HEMATOMA/FLUID 020 60770-CZUJHIGP OF HEMATOMA/FLUID 019 82780-Ncqxuvsgx, Toes 02/23/2013 67620-Ducixfgpn, Toes 04/09/2013 04984-Kwbddnaco, Toes 03/26/2013 Insurance Providers Payer Name Payer Address Payer Phone Subscriber Number Group Number Insured Name Patient Relationship to Insured Coverage Start Date Coverage End Date [facility] [address] [place] [address] [id number] Noman Marilu Vick Self - patient is [...] toe surgery 08/13/22 Hospitalization History Reason Date(Month/Year) [facility] [place] [place] third toe left foot 03/11/19 [facility] [place] [place] Skin ulcer bilateral feet, HT L2nd, HT R3rd 03/23/2020 [facility] [place] [place] ER 3 days infection 3rd toe, osteomy litis 09/30/2018
--- NOTE | 2025-08-23 15:03 | HO.ANESPROP2 ---
Documented by User: Caitlin Alvarez NP 08/23/25 15:05 HPI - Anesthesia Eval Consult details Narrative: 65yo F for Upper Endoscopy and Colonoscopy Anesthesia Pre-Procedure Meds Is the patient on any of the following meds?: SGLT2 Inhib PMFSH Active Problems Active Problems: All Active Problems Encounter for routine adult physical exam with abnormal findings (Acute) Meningioma (Acute) Fracture of femoral neck, left (Acute) Osteomyelitis (Acute) Vitamin D deficiency (Acute) Hordeolum externum of right lower eyelid (Acute) Skin lesions (Acute) Screening for colon cancer (Acute) Systolic murmur (Acute) Wound of foot (Acute) Diabetes (Acute) Physical exam (Acute) Bruises easily (Acute) Hip pain (Acute) Microalbuminuria (Acute) Post-menopausal (Acute) Fatty liver (Acute) Serum calcium elevated (Acute) Pre-op evaluation (Acute) Elevated liver enzymes (Acute) GERD (gastroesophageal reflux disease) (Acute) Dyslipidemia (Acute) Acquired hammertoes of both feet (Acute) Peripheral neuropathy (Acute) Past Medical History Medical History Cellulitis of left leg COVID-19 vaccine series completed Diabetes Arthritis Anxiety Hx of osteomyelitis History of cholelithiasis GERD (gastroesophageal reflux disease) Dyslipidemia Acquired hammertoes of both feet Peripheral neuropathy Family History Family History Father Diabetes mellitus HTN (hypertension) Myocardial infarction Hyperlipidemia Mother Lymphoma Hyperlipidemia Family history of problems with anesthesia: No Surgical History Surgical History History of surgery on lower extremity Hx of foot surgery History of esophagogastroduodenoscopy (EGD) Hx of colonoscopy History of ankle surgery History of hammertoe correction History of skin ulcer Hx of cholecystectomy History of Problems with Anesthesia: No Social History Social History Household Members: None Housing: Condominium Are you a primary field care advocate to a significant other at home: No Do you presently have visiting nurse or other home services: No Alcohol intake: current Alcohol intake frequency: holidays/special occasions only Patient Tobacco Use Status: Former Tobacco user Tobacco use type: Cigarette e-Cigarette/Vaping Use: Never Used Second Hand Smoke Exposure: Yes Use of substances other than those prescribed or required for medical reasons: No Are you DNR?: No Advance Directives: No Advance Directives Information Provided: Yes Advance Directives Date on File: 02/10/17 service: No Current occupational status: employed Current occupation: [employer] Current occupational exposures/hazards: No Cognitive needs: No Hearing needs: No Vision needs: No Meds Allergies Allergy/AdvReac Type Severity Reaction Status Date / Time No Known Allergies (No Known Allergy Verified 08/26/25 12:36 Allergies*) Exam Pertinent Lab Results Pertinent Lab Results: Laboratory Tests 07/14/25 07:04 WBC 7.8 Hgb 14.4 Hct 43.2 Plt Count 427 H Sodium 140 Potassium 4.1 Chloride 106 Carbon Dioxide 26 BUN 15 Creatinine 0.58 Assessment and Plan Assessment Anesthesia Assessment: Chart Reviewed Final Anesthetic Review Family History of Problems with Anesthesia: No History of Problems with Anesthesia: No Documented by User: Ambreen Miles MD 08/26/25 12:53 [facility] Past Medical History Medical History Cellulitis of left leg COVID-19 vaccine series completed Diabetes Arthritis Anxiety Hx of osteomyelitis History of cholelithiasis GERD (gastroesophageal reflux disease) Dyslipidemia Acquired hammertoes of both feet Peripheral neuropathy Family History Family History Father Diabetes mellitus HTN (hypertension) Myocardial infarction Hyperlipidemia Mother Lymphoma Hyperlipidemia Surgical History Surgical History History of surgery on lower extremity Hx of foot surgery History of esophagogastroduodenoscopy (EGD) Hx of colonoscopy History of ankle surgery History of hammertoe correction History of skin ulcer Hx of cholecystectomy Social History Social History Household Members: None Housing: Condominium Are you a primary field care advocate to a significant other at home: No Do you presently have visiting nurse or other home services: No Alcohol intake: current Alcohol intake frequency: holidays/special occasions only Patient Tobacco Use Status: Former Tobacco user Tobacco use type: Cigarette e-Cigarette/Vaping Use: Never Used Second Hand Smoke Exposure: Yes Use of substances other than those prescribed or required for medical reasons: No Are you DNR?: No Advance Directives: No Advance Directives Information Provided: Yes Advance Directives Date on File: 02/10/17 service: No Current occupational status: employed Current occupation: [employer] Current occupational exposures/hazards: No Cognitive needs: No Hearing needs: No Vision needs: No Meds Allergies Allergy/AdvReac Type Severity Reaction Status Date / Time No Known Allergies (No Known Allergy Verified 08/26/25 12:36 Allergies*) Exam Airway Mallampati Class: II (cap top front, caps laterally) TM Dist: >3cm Neck ROM: Full Heart: rrr Lungs: cta Assessment and Plan Assessment Anesthesia Assessment: Anesthesia Plan Discussed Final Anesthetic Review NPO: Yes ASA Class: II Final Preanesthetic Review: No Changes in Pt Med Stat, Meds/Allgs Chart Reviewed and Consent Obtained/Reviewed Patient Risk: Intermediate Procedure Risk: Intermediate Anesthetic Plan Anesthetic Plan: MAC: Disposition: Standard PACU
[2025-08-26 12:29] VITALS: BMI 26.6
[2025-08-26 12:38] VITALS: BP 152/85; PULSE 77; RESP 15; TEMP 36.4; O2SAT 98
[2025-08-26 13:04] LABS: Glucose, Whole Blood 136 mg/dL (60-115)
--- NOTE | 2025-08-26 13:31 | MHC.SHP ---
Pre-Procedural Eval Section A - 24 Hr Update-Section A only Date of Service: 08/26/25 The patient is an INPATIENT: No The patient has been examined within 24 hours of the surgical procedure. The History & Physical has been completed within 30 days and I have reviewed it.: No Section B - Complete if H&P > 30 days Chief Complaint: Colon cancer screening, GERD Relevant Family History (Specify if Yes): No Relevant Social History: Tobacco Use Present Medications: see Short Stay Collaborative assessment Medical History: Significant History (Diabetes Arthritis Anxiety Hx of osteomyelitis History of cholelithiasis GERD (gastroesophageal reflux disease) Dyslipidemia Acquired hammertoes of both feet Peripheral neuropathy) History of Previous Operations: Relevant previous surgery/procedure and date(s) (Hx of foot surgery History of esophagogastroduodenoscopy (EGD) Hx of colonoscopy History of ankle surgery History of hammertoe correction History of skin ulcer Hx of cholecystectomy) Allergies: Allergies Allergy/AdvReac Type Severity Reaction Status Date / Time No Known Allergies (No Known Allergy Verified 08/26/25 12:36 Allergies*) Review of Systems Sugical H&P ROS: Negative: Constitution, Cardiovascular, Respiratory and Gastrointestinal Exam Surgical H&P Exam: Normal: Heart, Normal: Lungs, Normal: Extremities and Normal: Abdomen Plan Diagnosis/Plan: Unchanged I have reviewed the history and physical and performed a pertinent physical examination on my patient. No changes have occurred unless specified. Time Spent With Patient Time: Total time managing care of this patient today ____ minutes.
--- NOTE | 2025-08-26 13:46 | HO.OPN-COLON ---
Colonoscopy Operative Note Operative Note Date of Service: 08/26/25 Narrative: FLEXIBLE TRANSORAL UPPER GASTROINTESTINAL ENDOSCOPY WITH BIOPSIES AND COLONOSCOPY TILL CECUM WITH [] Pre-op diagnosis: Colon cancer screening, GERD Post-op diagnosis: GERD, Gastritis, gastric polyps Colon Polyps, Diverticulosis, hemorrhoids Specimens and Sources: : a: bx's antrum r/o h. pylori ?b: bx's gastric body ?c: gastric polyp ?d: ascending colon polyp ?e: transverse colon polyp Endoscopist:? Russell Danielson MD Anesthesia:?MAC UPPER ENDOSCOPY Consent: Indications for the procedure and potential complications of bleeding, perforation, reaction to medications and missed diagnosis were discussed with the patient and informed consent was obtained. Instrument: Olympus GIF H 190 mid size upper endoscope Monitoring: Vital signs and clinical assessment, continuous EKG monitoring, Pulse oximetry, Carbon Dioxide monitoring and blood pressure monitoring were done throughout the procedure. Procedure: The patient was placed in the left lateral decubitis position and pre-procedure medications were administered and a bite block was placed. The endoscope was inserted into the mouth and advanced under direct vision to the third part of duodenum. A careful inspection was made as the upper endoscope was withdrawn including a retroflexed examination of the proximal stomach; Findings and interventions are described below. Findings: Larynx: Normal Esophagus: GE junction at 36 cms. No esophagitis or Lynch's. Stomach: Multiple 5 to 15 mm benign appearing polyps in the gastric body and fundus - biopsied. Moderate diffuse gastric erythema with nodular - biopsies were obtained from the antrum. Grade 2 flap valve on retroflexed examination of the cardia. Duodenum: Normal bulb and descending duodenum Biopsies were obtained from descending duodenum to check for celiac sprue Intervention: Biopsies as noted above COLONOSCOPY PROCEDURE NOTE Instrument: Olympus CF H 190 L variable stiffness adult colonoscope Monitoring: Vital signs and clinical assessment, intermittent blood pressure monitoring, continuous EKG monitoring, Pulse oximetry and Carbon Dioxide monitoring were done throughout the procedure. Please see anesthesia flowsheet. Colon withdrawl time was 25 minutes. Procedure: The patient was placed in the left lateral decubitis position and pre-procedure medications were administered. After a digital rectal examination of the ano-rectum, the video colonoscope was inserted into the rectum and advanced through the colon to the cecum. The colonoscope was slowly withdrawn in a retrograde panoramic fashion and the colon mucosa was carefully examined including a retroflexed view of the rectum. Findings and interventions are described below. Procedure Difficulty: Colon was long and tortuous and there was spasm and some loop formation. LLQ pressure was applied to intubate the ascending colon Findings: Terminal Ileum: Not evaluated Cecum: Normal Ascending Colon: A 15 mm sessile polyp in the distal AC - removed with a stiff hot snare. Polypectomy site was closed with 1 hemoclip. Moderate diverticulosis throughout the entire colon. Transverse Colon: A 12-15 mm sessile polyp - removed with a stiff hot snare. Polypectomy site was closed with 1 hemoclip. Moderate diverticulosis throughout the entire colon. Descending Colon: Moderate diverticulosis Sigmoid Colon: Moderate diverticulosis Rectum: Normal Ano-rectum: Moderate internal hemorrhoids Colon preparation: Good after some irrigation. [place] Bowel Preparation Scale Right colon; 2 Transverse colon: 2 Left colon; 2 (0 = Unprepared colon segment with mucosa not seen due to solid stool that cannot be cleared. 1 = Portion of mucosa of the colon segment seen, but other areas of the colon segment not well seen due to staining, residual stool and/or opaque liquid. 2 = Minor amount of residual staining, small fragments of stool and/or opaque liquid, but mucosa of colon segment seen well. 3 = Entire mucosa of colon segment seen well with no residual staining, small fragments of stool or opaque liquid) Impression and Post Procedure Diagnosis: Endoscopy Findings: ESOPHAGUS: [] STOMACH: [] DUODENUM: [] Colonoscopy Findings: Two medium sized polyps were removed Moderate diverticulosis seen in the entire colon small hemorrhoids on retroflexed exam. Plan: Pt has a FU appointment on 09/12/25 with Enma Shearer NP Repeat Colonoscopy in 3-5 years if polyps are adenomatous and 10 year if polyps are hyperplastic. A summary of above findings and relevant handouts were given to the patient.
[2025-08-26 14:41] VITALS: BP 131/89; PULSE 73; RESP 16; TEMP 36.5; O2SAT 98
[2025-08-26 14:56] VITALS: BP 157/79; PULSE 69; RESP 16; TEMP 36.4; O2SAT 99
== END 2025-08-26 15:28 | disposition home or self-care (01) ==
PROVIDERS: PCP Nurse Practitioner Family; Visit Provider Internal Medicine Gastroenterology
PROC: (CPT 45385; principal; 2025-08-26 14:10)
DX: Z12.11 Encounter for screening for malignant neoplasm of colon (principal); K21.9 Gastro-esophageal reflux disease without esophagitis; K31.7 Polyp of stomach and duodenum; K57.30 Diverticulosis of large intestine without perforation or abscess without bleeding; D12.2 Benign neoplasm of ascending colon; K63.5 Polyp of colon; K29.70 Gastritis, unspecified, without bleeding
CPT/HCPCS: 45385; 43239; 82947; 88305; 88313; 88342; J2003; J2704

== ENCOUNTER 2025-09-14 13:09 | Outpatient (AMB) | payer BC, SELFPAY ==
--- NOTE | 2025-09-14 13:14 | A.OFFVIS_ITS ---
Vital Signs 09/14/25 13:17 Height 5 ft 7 in Weight 173 lb BMI 27.1 BP 124/68 Blood Pressure Location Rt brachial Position Sitting Pulse 84 Pulse Source Pulse Oximeter Pulse Oximetry (%) 99 Oxygen Delivery Method Room Air Intake Visit Reasons: S/P Double. Added from CL. Intake Note: Est pt for mgmt of GERD. CC: C/O GERD persistence but only if she forgets to take her PPI. With PPI, she feels her sx are well managed. Negotiator Required: No Accompanied by: Self / Same As Patient Allergies No Known Allergies (No Known Allergies*) Allergy (Verified 08/26/25 12:36) HPI HPI S/P Double. Added from CL.: Details: LAST VISIT: Screening for colon cancer Plan Patient denies any GI, cardiac or respiratory symptoms.? Denies any issues with anesthesia in the past.? Denies any history of sleep apnea.? No history infectious diseases in the past or present.? Not on any anticoagulation therapy.? No family or personal history of colon cancer or polyps.? Patient denies melena, hematochezia, unintentional weight loss or ribbon like stools.? Discussed at length the pre-procedure,? prep, diet & medications as well as what to expect prior, during and after the procedure.?? Stressed the importance of good bowel prep.? Recommended the use of Vaseline or Calmoseptine OTC & baby wipes with bowel movements to promote comfort.? ?Patient verbalizes understanding and agrees to plan of care.? She was given the opportunity to ask questions and all questions answered.? We will see her after the procedure.? New bisacodyl (Dulcolax (bisacodyl)) take 4 tabs at noon the day before your colonoscopy 20 mg (4 x 5 mg) PO ONCE 4 tabs 0RF 1 day Z12.11 polyethylene glycol 3350 (Miralax) As directed by gastroenterology department at [facility] 238 grams PO ONCE 238 grams 0RF Z12.11 UPPER ENDOSCOPY AND COLONOSCOPY Findings: Larynx: Normal Esophagus: GE junction at 36 cms. No esophagitis or Lynch's. Stomach: Multiple 5 to 15 mm benign appearing polyps in the gastric body and fundus - biopsied. Moderate diffuse gastric erythema with nodular - biopsies were obtained from the antrum. Grade 2 flap valve on retroflexed examination of the cardia. Duodenum: Normal bulb and descending duodenum Biopsies were obtained from descending duodenum to check for celiac sprue Intervention: Biopsies as noted above COLONOSCOPY PROCEDURE NOTE Instrument: Olympus CF H 190 L variable stiffness adult colonoscope Monitoring: Vital signs and clinical assessment, intermittent blood pressure monitoring, continuous EKG monitoring, Pulse oximetry and Carbon Dioxide monitoring were done throughout the procedure. Please see anesthesia flowsheet. Colon withdrawl time was 25 minutes. Procedure: The patient was placed in the left lateral decubitis position and pre-procedure medications were administered. After a digital rectal examination of the ano-rectum, the video colonoscope was inserted into the rectum and advanced through the colon to the cecum. The colonoscope was slowly withdrawn in a retrograde panoramic fashion and the colon mucosa was carefully examined including a retroflexed view of the rectum. Findings and interventions are described below. Procedure Difficulty: Colon was long and tortuous and there was spasm and some loop formation. LLQ pressure was applied to intubate the ascending colon Findings: Terminal Ileum: Not evaluated Cecum: Normal Ascending Colon: A 15 mm sessile polyp in the distal AC - removed with a stiff hot snare. Polypectomy site was closed with 1 hemoclip. Moderate diverticulosis throughout the entire colon. Transverse Colon: A 12-15 mm sessile polyp - removed with a stiff hot snare. Polypectomy site was closed with 1 hemoclip. Moderate diverticulosis throughout the entire colon. Descending Colon: Moderate diverticulosis Sigmoid Colon: Moderate diverticulosis Rectum: Normal Ano-rectum: Moderate internal hemorrhoids Colon preparation: Good after some irrigation. [place] Bowel Preparation Scale Right colon; 2 Transverse colon: 2 Left colon; 2 (0 = Unprepared colon segment with mucosa not seen due to solid stool that cannot be cleared. 1 = Portion of mucosa of the colon segment seen, but other areas of the colon segment not well seen due to staining, residual stool and/or opaque liquid. 2 = Minor amount of residual staining, small fragments of stool and/or opaque liquid, but mucosa of colon segment seen well. 3 = Entire mucosa of colon segment seen well with no residual staining, small fragments of stool or opaque liquid) Colonoscopy Findings: Two medium sized polyps were removed Moderate diverticulosis seen in the entire colon small hemorrhoids on retroflexed exam. Plan: Repeat Colonoscopy in 3-5 years if polyps are adenomatous and 10 year if polyps are hyperplastic. A summary of above findings and relevant handouts were given to the patient. PATHOLOGY Diagnosis A. Stomach, antrum, biopsy: Antral-type mucosa with mild chronic inactive inflammation; no Helicobacter organisms identified. B. Stomach, body, biopsy: Oxyntic mucosa with mild chronic inactive inflammation; no Helicobacter organisms identified. C. Stomach, polypectomy: Fundic gland polyp with background mild chronic inactive inflammation; no Helicobacter organisms seen. D. Colon, ascending, polypectomy: Fragments of sessile serrated lesion/polyp; negative for cytologic dysplasia. E. Colon, transverse, polypectomy: Hyperplastic mucosal polyp TODAY'S VISIT Patient is here today for follow-up and to discuss upper endoscopy and colonoscopy results. Patient denies any ill effects from the prep, anesthesia or procedure itself. Patient reports that she has been doing fairly well since procedure. She is taking pantoprazole daily in if she remembers to take it she has no symptoms. Occasionally when not taking it for 2-3 days she notice that her acid reflux is coming back. Patient reports doing fairly well. Denies dyspepsia, dysphagia or odynophagia. Patient denies melena, hematochezia, unintentional weight loss or ribbon like stools. One sessile serrated polyp found and patient will return for colonoscopy in 3 years due to the size of the polyp. [facility] Medical History Cellulitis of left leg COVID-19 vaccine series completed Diabetes Arthritis Anxiety Hx of osteomyelitis History of cholelithiasis GERD (gastroesophageal reflux disease) Dyslipidemia Acquired hammertoes of both feet Peripheral neuropathy Surgical History History of surgery on lower extremity Hx of foot surgery History of esophagogastroduodenoscopy (EGD) Hx of colonoscopy History of ankle surgery History of hammertoe correction History of skin ulcer Hx of cholecystectomy Family History Father Diabetes mellitus HTN (hypertension) Myocardial infarction Hyperlipidemia Mother Lymphoma Hyperlipidemia Social History Household Members: None [facility]: [facility] Are you a primary career counselor to a significant other at home: No Do you presently have visiting nurse or other home services: No Alcohol intake: current Alcohol intake frequency: holidays/special occasions only Patient Tobacco Use Status: Former Tobacco user Tobacco use type: Cigarette e-Cigarette/Vaping Use: Never Used Second Hand Smoke Exposure: Yes Advance Directives Date on File: 02/10/17 service: No Current occupational status: employed Current occupation: [employer] Current occupational exposures/hazards: No Cognitive needs: No Hearing needs: No Vision needs: No Review of Systems Const Denies weight gain and Denies weight loss ENT Reports no additional complaints, Denies dysphagia and Denies odynophagia Card Reports no additional complaints Resp Reports no additional complaints GI Denies abdominal pain, Denies belching, Denies melena, Denies bloating, Denies change in bowel habits, Denies dysphagia, Denies excessive flatus, Denies dyspepsia, Denies heartburn, Denies diarrhea, Denies loose stools, Denies nausea, Denies odynophagia and Denies vomiting Reports no additional complaints Musc Reports no additional complaints Neuro Reports no additional complaints Psych Reports no additional complaints Endo Reports no additional complaints Physical Exam Vital Signs: Last Vital Signs Pulse 84 09/14/25 13:17 BP 124/68 09/14/25 13:17 Pulse Ox 99 09/14/25 13:17 Oxygen Delivery Method Room Air 09/14/25 13:17 BMI result Body Mass Index 27.1 Const General: healthy appearing, no acute distress and well developed Nutritional Appearance: well nourished and obese Orientation/consciousness: patient oriented x3 Resp Effort & Inspection: normal respiratory effort, able to speak in complete sentences, no tracheal deviation and symmetric chest movement Auscultation: clear to auscultation bilaterally Cardio Rate: regular rate GI Inspection: Yes normal to inspection, No distended and Yes obesity Palpation (GI): Soft to palpation, not firm, nontender and No hepatosplenomegaly present Auscultation: normal bowel sounds General: Yes no CVA tenderness Back/Spine/Pelvis Back: no CVA tenderness Skin General skin exam: elasticity normal, turgor normal and dry skin Neuro General: patient oriented x3 Psych Appearance: grossly normal Mental Status: mental status grossly normal Assessment & Plan Assessment & Plan (1) GERD (gastroesophageal reflux disease): Code(s): K21.9 - Gastro-esophageal reflux disease without esophagitis Category: Medical Qualifiers: Esophagitis presence: esophagitis presence not specified Qualified Code(s): K21.9 - Gastro-esophageal reflux disease without esophagitis (2) Elevated liver enzymes: Code(s): R74.8 - Abnormal levels of other serum enzymes Category: Medical (3) Fatty liver: Code(s): K76.0 - Fatty (change of) liver, not elsewhere classified Category: Medical (4) Sessile serrated polyp of colon: Code(s): D12.6 - Benign neoplasm of colon, unspecified Plan Patient will return for colonoscopy in 3 years due to the size of the polyp and sessile serrated polyp found. Patient will continue taking pantoprazole daily. Avoid dietary triggers in late night snacking. Staying upright for minimum 3 hours after meals discussed with patient. Patient will increase fluid intake and activity to promote bowel motility. Patient will follow-up in our office as needed. She is agreeable to this plan and verbalizes understanding of instructions. She was given the opportunity to ask questions and all questions answered. Thank you for allowing me to participate in her care Medications: Refilled pantoprazole 20 mg PO DAILY 90 tabs 3RF Coding Level of Care Code Est Pt Level 3 (70864) Diagnoses Gastroesophageal reflux disease, unspecified whether esophagitis present K21.9 Esophagitis presence: esophagitis presence not specified Elevated liver enzymes R74.8 Fatty liver K76.0 Sessile serrated polyp of colon D12.6 Time Spent (min) 30 Comment 20 minutes spent with patient and additional 10 minutes spent reviewing her records
[2025-09-14 13:17] VITALS: BP 124/68; PULSE 84; O2SAT 99; BMI 27.1
--- OUTSIDE RECORDS SUMMARY | 2025-09-14 14:41 | XMS_ITS | Patient Health Record ---
Author Organization [facility] Address [address] [place] [address] Care Team Providers Care Legal Examiner Name Role Phone Donald CANELA, Asma Primary Care Provider Jaiden Britt Unavailable [phone] Reason For Referral No Information Medications Medication SIG (Take, Route, Frequency, Duration) Notes Start Date End Date Status MoviPrep 100 GM Solution Reconstituted as directed Orally once; Duration: 1 dose 11/19/2012 Active Omeprazole 20mg Ac tive Social History Social History Additional Details Category Social Info Options Details Miscellaneous: Marital status: Occupation: assurance senior manager at [employer] Section Notes: Nonsmoker; occasional alcoho l Problems Problem Type SNOMED Code ICD Code Onset Dates Problem Status W/U Status Risk Notes Problem Colon cancer screening (937616924) Colon cancer screening (V76.51) Active confirmed Problem Gastroesophageal reflux disease (846020975) GERD (gastroesopha geal reflux disease) (530.81) Active confirmed Problem Family history of malignant neoplasm of gastrointestinal tract (256898632) Family history of cancer of GI tract (V16.0) Active confirmed Plan Of Treatment Future Test Test Name Order Date COLONOSCOPY 11/19/2012 Insurance Providers Payer Name Payer Address Payer Phone Subscriber Number Group Number Insured Name Patient Relationship to Insured Coverage Start Date Coverage End Date [facility] [facility] [employer] [address] [place] [address] [id number] Self - patient is the insured Medical (General) History Medical History History ICD Code GERD--EGD in 07/2007 with a small HH-no sig. esophagitis nor Lynch's Colonoscopy in 07/2007-Hyper plastic polyps, mild diverticulosis, small int. hemorrhoids Denies TN,DM,CVA,Lung disease,renal dise ase Surgical History Surgery Date(Month/Year) Cholecystectomy Tubal ligation
--- OUTSIDE RECORDS SUMMARY | 2025-09-14 14:41 | XMS_ITS | Clinical Summary ---
Author Organization [facility] Facility Address [address] [address] Care Team Providers Care Accounting Lecturer Name Role Phone Marcelo Quintanilla NP Primary Care Provider [phone] Social History Tobacco Use Types Packs/Day Years [...] patient's age to complete this topic Insurance [facility] PPO Jaquan([id number]) [facility] PPO Blue([id number]) Care Teams Accounting Lecturer Relationship Specialty Start Date End Date Marcelo Quintanilla NP [address] [place] [address] PCP - General Nurse Practitioner 12/26/21
--- OUTSIDE RECORDS SUMMARY | 2025-09-14 14:41 | XMS_ITS | Patient Health Record ---
[facility] Address [address] [place] [address] Care Team Providers Care Wearing Apparel Folder Name Role Phone Marcelo Solis Primary Care Provider Unav ailable Igor Riojas Unavailable [phone] Allergies No Known Allergies Reason For Referral [...] . . . 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 if possible; Duration: 2 [...] primary osteoarthritis of the ankle and/or foot (133306824) Primary osteoarthritis, right ankle and foot (M19.071) Active confirmed Problem Localized, primary osteoarthritis of the ankle and/or foot (643022490) Primary osteoarthritis, left ankle and foot (M19.072) Active confirmed Problem Polyneuropathy due to type 2 diabetes mellitus (939740328) Type 2 diabetes mellitus with diabetic polyneuropathy (E11.42) Active confirmed Problem Non-pressure chronic ulcer of other part of left foot limited to breakdown of skin (L97.521) Active confirmed Problem Non-pressure chronic ulcer of other part of right foot limited to breakdown of skin (L97.511) Active confirmed Problem Acquired hammer toe of right foot (2897291081269116 ) Other hammer toe(s) (acquired), right foot (M20.41) Active confirmed Problem Acquired hammer toe of left foot (1776345206732826 ) Other hammer toe(s) (acquired), left foot (M20.42) Active confirmed Problem Non-pressure ulcer of right lower extremity, limited to breakdown of skin (L97.911) Active confirmed Problem Osteomyelitis (10819867) Osteomyelitis of toe of left foot (M86.9) Active confirmed Problem Non-pressure chronic ulcer right lower leg, limited to breakdown skin (L97.911) Active confirmed Problem Osteomyelitis (89846008) Osteomyelitis of toe of right foot (M86.9) Active confirmed Problem Acquired hammer toe of right foot (8268858830353998 ) Hammertoe of right foot (M20.41) Active [...] X ray : Foot, right 3V 08/21/2015 41454-HTKRBCI NAIL, 1-5 09/20/2015 45620- Debride <25 sq cm 02/23/2013 27500- Debride <25 sq cm 08/28/2015 18293- Debride <25 sq cm 09/20/2015 76516- Debride <25 sq cm 04/09/2013 66690- Debride <25 sq cm 04/23/2013 96410- Debride <25 sq cm 04/19/2014 24367- Debride <25 sq cm 03/09/2013 74571- Debride <25 sq cm 08/16/2020 43126- Debride <25 sq cm 08/30/2020 16310- Debride <25 sq cm 11/10/2018 43325- Debride <25 sq cm 10/03/2020 77407- Debride <25 sq cm 02/01/2021 64520-VOKLXBC SKIN/TISSUE 04/23/2021 66082-BKIFRXC SKIN/TISSUE 05/07/2021 44588-AJTFZAE SKIN/TISSUE 01/28/2022 43172-DGQCDTF SKIN/TISSUE 08/03/2020 62481-BKKAJOT SKIN/TISSUE 10/03/2020 60789-KIKAJVC SKIN/TISSUE 2019 83413-BTGWJKE SKIN/TISSUE 03/26/2013 20034-BPTLYWI SKIN/TISSUE 12/15/2012 98522-QGPYLFK SKIN/TISSUE 08/21/2015 90118-ILBYJBE SKIN/TISSUE 09/29/2019 59337-DMTGEAS SKIN/TISSUE 01/12/2020 76530-RZIGWTN SKIN/TISSUE 04/20/2019 56431-SAVCUET SKIN/TISSUE 05/03/2019 64162-RLIMTTD SKIN/TISSUE 05/14/2019 09696-WZUTZNC SKIN/TISSUE 09/30/2018 87922-PBWUDMW SKIN/TISSUE 10/13/2018 65907-QYBGLEB SKIN/TISSUE 10/22/2018 99812 I&D ABSCESS- SIMPLE,SINGLE 013 22093 I&D ABSCESS- SIMPLE,SINGLE 021 11071-RCOZ SKIN LESIONS, 2 TO 4 02/05/20 22 06611-XNSO SKIN LESIONS, 2 TO 4 08/05/20 22 22039-TXKQIXRL OF HEMATOMA/FLUID 020 83282-QZYPWUTX OF HEMATOMA/FLUID 019 61094-Lihgoflyv, Toes 02/23/2013 88044-Yubdaomdp, Toes 04/09/2013 81084-Hzcuenral, Toes 03/26/2013 Insurance Providers Payer Name Payer Address Payer Phone Subscriber Number Group Number Insured Name Patient Relationship to Insured Coverage Start Date Coverage End Date [facility] [address] [place] [address] [phone] [id number] Noman Marilu Vick Self - patient is [...] toe surgery 08/13/22 Hospitalization History Reason Date(Month/Year) [facility] third toe left foot 03/11/19 [facility] Skin ulcer bilateral feet, HT L2nd, HT R3rd 03/23/2020 [facility] ER 3 days infection 3rd toe, osteomy litis 09/30/2018
== END 2025-09-14 13:51 | disposition home or self-care (01) ==
LOC: HO.HGI 13:09
PROVIDERS: PCP Nurse Practitioner Family; Visit Provider Nurse Practitioner Family
DX: K21.9 Gastro-esophageal reflux disease without esophagitis (principal); R74.8 Abnormal levels of other serum enzymes; K76.0 Fatty (change of) liver, not elsewhere classified; D12.6 Benign neoplasm of colon, unspecified
CPT/HCPCS: 99213